=== PATIENT | female | born 1950 | race Hispanic/Latino ===

== ENCOUNTER 2022-11-03 14:11 | Emergency (ER) | payer MEDICARE, OTHER ==
--- OUTSIDE RECORDS SUMMARY | 2022-11-03 14:18 | XMS REPORT | Continuity of Care Document ---
:1950 Author Organization [facility] t Address [address] [facility] [address] [place] [address] Care Team Providers Name Role Phone VALERIE VANESSA Primary Care Physician Unavailable MAURICE NORWOOD Attending Clinician Unavailable JOANNE CARLSON Attending Clinician Unavailable Helga Huber MD Attending Clinician ALVARO CARLISLE Attending Clinician Unavailable Baltazar Neil MD Attending Clinician Alvaro Carlisle MD Attending Clinician Nurse, [facility] Attending Clinician Unavailable Unknown, Attending Attending Clinician Unavailable Austin Ramon Attending Clinician AUSTIN DUGAN Attending Clinician Unavailable JYOTHI KOWALSKI Attending Clinician Unavailable Radiology Attending Clinician Unavailable RADIOLOGY Attending Clinician Unavailable [place] POLYMER CHEMIST, Jyothi Attending Clinician Doctor Unassigned, Alsen Attending Clinician Unavailable Lab, Ang - Db Attending Clinician Unavailable , [facility] Lab Attending Clinician Unavailable JB GODFREY Attending Clinician Unavailable ROSIBEL STALLIGNS Attending Clinician Unavailable Rosibel Buchanan Attending Clinician ISAAC GUNTER Attending Clinician Unavailable Isaac Gunter MD Attending Clinician , [facility] Surg Spec Procedure Attending Clinician Unavailable EBBERNICE NESS Attending Clinician Unavailable Ebrahim POLYMER CHEMIST, Rania Attending Clinician Nikkie Muse MD Attending Clinician GRAMM LYNDSEY A Attending Clinician Unavailable Gramm POLYMER CHEMIST, Lyndsey A Attending Clinician IVANA SHAFFER Attending Clinician Unavailable Ivana Shaffer PA-C Attending Clinician SPENCER GROVES Attending Clinician Unavailable Spencer Groves MD Attending Clinician HELGA HUBER Attending Clinician Unavailable Leroy Ho Attending Clinician LEROY BOYD Attending Clinician Unavailable JEFF CHILD Attending Clinician Unavailable Jeff Child DO Attending Clinician Ha STERLING, Santhosh Attending Clinician SANTHOSH BROOKS Attending Clinician Unavailable ANTHONY BARRIENTOS Attending Clinician Unavailable Vaccine, Ang Db Cbc Fam Attending Clinician Unavailable Anthony Barrientos MD Attending Clinician REBEL HARO Attending Clinician Unavailable Chino Ortega MD Attending Clinician CHINO ORTEGA Attending Clinician Unavailable LAUREN LAWTON Attending Clinician Unavailable NIKO GUZMAN Attending Clinician Unavailable Rajnorma_Raf Attending Clinician Unavailable Joanne Carlson MD Attending Clinician [phone] Sabiha Duran MD Attending Clinician Maurice Norwood MD Attending Clinician Pob, Adc Lab Main Attending Clinician Unavailable CRUZITO COUGHLIN Attending Clinician Unavailable LILI BRAR JR Attending Clinician Unavailable TRICIA MARSHALL Attending Clinician Unavailable JUNG MILTON Attending Clinician Unavailable MAURICE NORWOOD Admitting Clinician Unavailable JOANNE CARLSON Admitting Clinician Unavailable MARINA HERRMANN Admitting Clinician Unavailable IBAN MCNEAL Admitting Clinician Unavailable LYNDSEY ROLLINS Admitting Clinician Unavailable JEFF CHILD Admitting Clinician Unavailable LAUREN LAWTON Admitting Clinician Unavailable Patricia Admitting Clinician Unavailable Payers Payer Name Policy Type Policy Number Effective Date Expiration Date Cristal burks MARIA ISABEL/[facility] [id number] 2019 MEDICARE ADVANTAGE 00:00:00 [facility]/[place] [id number] [facility] [id number] 2019 00:00:00 Problems Condition Condition Condition Status Onset Resolution Last Treating Co mments Source Name Details Category Date Date Treatment Clinician Date Neuropathy Neuropathy Disease Active U nivers 4-12 ity of 00:00: [place] [facility] Pruritus Pruritus Disease Active 2020-07 Unive rs 0-10 ity of 00:00: [facility] Vitamin D Vitamin D Disease Active 2020-07 Uni vers deficiency deficiency 0-10 it y of 00:00: [place] [facility] Statin Statin Disease Active Univers intoleranc intoleranc 9-19 it y of e e 00:00: [place] [facility] Adverse Adverse Disease Active Univers effect of effect of 9- ity of fibric fibric 00:00: [place] acid and acid and 00 Medica l fibric fibric Branch acid acid derivative derivative Gastritis Gastritis Disease Active Uni vers 8-19 ity of 00:00: [place] [facility] Gastroesop Gastroesop Disease Active 2019-07 Last B aylor hageal hageal 0-05 [facility] reflux reflux 00:00: t & Plan: of disease disease 00 Patient Medicin without without appears e esophagiti esophagiti to have s s uncontrol led GERD with bloating, abdominal pain and diffculty breathing . Recommend ed she try pepcid twice a day. Also recommend ed she try probiotic s to help with bloating. She is scheduled to see GI next week. Plan for follow up in 3 mo with PFT - to rule out obstructi ve or restricti ve lung disease. Nontraumat Nontraumat Disease Active Overview : Univers ic ic 8-04 Formattin ity of incomplete incomplete 00:00: g of this [place] tear of tear of 00 note Medical left left might be Branch rotator rotator different cuff cuff from the original. 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 0-30 it y of steremia steremia 00:00: Medical Branch Chronic Chronic Disease Active Univers diastolic diastolic 8-19 ity of heart heart 00:00: [place] failure failure 00 Medical Branch Primary Primary Disease Active Univers hypothyroi hypothyroi 2-18 it y of dism dism 00:00: Medical Branch HLD HLD Disease Active Univers (hyperlipi (hyperlipi 2-18 it y of demia) demia) 00:00: Medical Branch Type 2 Type 2 Disease Active Univers diabetes diabetes 2-15 ity of mellitus mellitus 00:00: [place] without without 00 Medical complicati complicati Br anch on on Essential Essential Disease Active Uni vers hypertensi hypertensi 1-27 it y of on on 00:00: Medical Branch Dyslipidem Dyslipidem Disease Active U nivers ia ia 1- ity of 00:00: 00 Medical Branch Allergies, Adverse Reactions, Alerts Allergy Allergy Status Severity Reaction(s) Onset Inactive Treating Comm ents Source Name Type Date Date Clinician CETIRIZI DRUG Active Swelling 2020-07 Univer s NE INGREDI 1-08 ity of 00:00: 00 Medical Branch TRIAMCIN DRUG Active Other-Cmnt 2020-07 Univ ers OLONE INGREDI 1-08 ity of ACETONID 00:00: [place] E 00 Medical Branch Cetirizi Propensi Active Swelling 2020-07 Swelling Un marianne ne ty to 1-08 of lips ity of adverse 00:00: and hands [place] reaction 00 and Medical s blisters Branch in mouth Triamcin Propensi Active Other - See 2020-07 "Burning Univers olone ty to comments 1-08 of skin" ity of Acetonid adverse 00:00: [place] e reaction 00 Medical s Branch Fenofibr Propensi Active Other - See "I feel Univers ate ty to comments 9-17 really ity of adverse 00:00: bad" [place] reaction 00 Medical s Branch FENOFIBR DRUG Active Other-Cmnt Univ ers ATE INGREDI 9-17 ity of 00:00: [place] 00 Medical Branch Diclofen Propensi Active Swelling 2020-0 Univ ers ac ty to 8-19 ity of adverse 00:00: [place] reaction 00 Medical s Branch Gabapent Propensi Active Swelling 2020-0 Univ ers in ty to 8-19 ity of adverse 00:00: [place] reaction 00 Medical s Branch Metronid Propensi Active Swelling 2020-0 Univ ers azole ty to 8-19 ity of adverse 00:00: [place] reaction 00 Medical s Branch DICLOFEN DRUG Active ITCHING 2020-0 Univers AC INGREDI 8-19 ity of 00:00: [place] 00 Medical Branch GABAPENT DRUG Active ITCHING 2020-0 Univers IN INGREDI 8-19 ity of 00:00: [place] 00 Medical Branch METRONID DRUG Active ITCHING 2020-0 Univers AZOLE INGREDI 8-19 ity of 00:00: [place] 00 Medical Branch CODEINE Allergy Active Med Itching 2019-[address] [facility] PENICILL Allergy Active Med Itching 2019- [facility] Codeine Drug Active Itching, 2019-[address] [facility] Penicill Drug Active Itching, 2019-[address] [facility] [facility] Rash [facility] Penicill Drug Active Itching, 2019-[address] [facility]ergy Rash [facility] Hydrocod Propensi Active Itching 2019-07 [facility] to 0-12 [facility] adverse 00:00: of reaction 00 Medicin s to e drug Meloxica Propensi Active Itching 2019-07 Causes [facility] ty to 0-12 headache College adverse 00:00: and of reaction 00 itchiness Medic in s to e drug Naproxen Propensi Active Other (See 2019-07 Causes [facility] ty to Comments) 0-12 severe College adverse 00:00: headache of reaction 00 and Medicin s to itchiness e drug Hydrocod Propensi Active Swelling 2019-07 Univ ers one ty to 0-12 ity of adverse 00:00: [place] reaction 00 Medical s Branch Meloxica Propensi Active Swelling 2019-07 Causes Univ ers m ty to 0-12 headache ity of adverse 00:00: and [place] reaction 00 itchiness Medic al s Branch Naproxen Propensi Active Other - See 2019-07 Causes U nivers ty to comments 0-12 severe ity of adverse 00:00: headache [place] reaction 00 and Medical s itchiness Branch HYDROCOD DRUG Active ITCHING 2019-07 Univers ONE INGREDI 0-12 ity of 00:00: [place] 00 Medical Branch MELOXICA DRUG Active ITCHING 2019-07 Univers M INGREDI 0-12 ity of 00:00: [place] 00 Medical Branch NAPROXEN DRUG Active ITCHING 2019-07 Univers INGREDI 0-12 ity of 00:00: [place] 00 Medical Branch Sulfamet Propensi Active Swelling 2019-0 Blisters Un marianne hoxazole ty to 8-15 in the ity of adverse 00:00: mouth and [place] reaction 00 lip Medical s swelling Branch SULFAMET DRUG Active Swelling 2019-0 Univer s HOXAZOLE INGREDI 8-15 ity of 00:00: [place] 00 Medical Branch Pravasta Propensi Active Other - See 2018- Severe U nivers tin ty to comments 0-17 muscle ity of adverse 00:00: cramping [place] reaction 00 Medical s Branch PRAVASTA DRUG Active Other-Cmnt 2017-07 Univ ers TIN INGREDI 0-17 ity of 00:00: [place] 00 Medical Branch Lisinopr Propensi Active Cough 2018-0 Univer s il ty to 5-03 ity of adverse 00:00: [place] reaction 00 Medical s Branch LISINOPR DRUG Active COUGH 2018-0 Univers IL INGREDI 5-03 ity of 00:00: [place] 00 Medical Branch Codeine Propensi Active 2016-07 [facility] ty to 0-03 [place] adverse 00:00: of reaction 00 Medicin s to e drug Penicill Propensi Active 2016-07 [facility] ins ty to 0-03 [place] adverse 00:00: of reaction 00 Medicin s to e drug Tramadol Propensi Active Shortness of 2017 Univers ty to Breath 6-23 ity of adverse 00:00: [place] reaction 00 Medical s Branch TRAMADOL DRUG Active Hives 2017- Univers INGREDI 6-23 ity of 00:00: [place] 00 Medical Branch Atorvast Propensi Active Other - See 2017- Swelling Univers atin ty to comments 2-13 ity of Calcium adverse 00:00: [place] reaction 00 Medical s Branch ATORVAST DRUG Active Other-Cmnt 2017- Univ ers ATIN INGREDI 2-13 ity of CALCIUM 00:00: [place] 00 Medical Branch Codeine Drug Active Rash 2016-0 Univers Allergy 1-26 ity of 00:00: [place] 00 Medical Branch Penicill Drug Active Rash 2016-0 Univers ins Allergy 1-26 ity of 00:00: [place] 00 Medical Branch CODEINE DRUG Active Med ITCHING 2016-0 Univers INGREDI 1-26 ity of 00:00: [place] 00 Medical Branch PENICILL Drug Active Med ITCHING 2016-0 Univers INS Class 1-26 ity of 00:00: [place] 00 Medical Branch NO KNOWN Allergy Active [facility] ALLERGIE S Social History Social Habit Start Date Stop Date Quantity Comments Source Exposure to 2022-05-18 2022-05-28 Not sure [facility] SARS-CoV-2 00:00:00 12:45:00 [facility] (event) [place] Tobacco use and 2022-05-07 2022-05-07 Smokeless tobacco Un iversity of exposure 00:00:00 00:00:00 non-user [facility] Alcohol intake 2020-05-08 2020-05-08 Current drinker CLAY Castro 00:00:00 00:00:00 of alcohol [facility] (finding) Sex [birth year] CLAY Pineda kes 00:00:00 00:00:00 Medical [place] Smoking Status Start Date Stop Date Source Never smoked tobacco [facility] Medications Ordered Filled Start Stop Current Ordering Indication Dosage Frequency Signature Comments Components Source Medication Medication Date Date Medication? Clinician (SIG) Name Name alice 2021-07 Yes [id number] 20mg Take 1 Univers n 20 mg 2-08 tablet by ity of tablet 00:00: mouth at [place] [address] bedtime. [facility] 2021-07 Yes [id number] 20mg Take 1 Univers n 20 mg 2-08 tablet by ity of tablet 00:00: mouth at [place] [address] bedtime. [facility]07 Yes [id number] 20mg Take 1 Univers n 20 mg 2-08 tablet by ity of tablet 00:00: mouth at [place] [address] bedtime. [facility] 2021-07 Yes [id number] 1{capsu Take 1 U nivers Blue-Sod 1-18 le} capsule by ity o f Phos-PhSal- 00:00: mouth 2 Ge as [place] 00 (two) Medical (URIBEL) times Branch 118-10-40.8 daily as -36 mg needed for capsule Other (bladder spasms). [facility] 2021-07 Yes [id number] 1{capsu Take 1 U nivers Blue-Sod 1-18 le} capsule by ity o f Phos-PhSal- 00:00: mouth 2 [place] as [place] 00 (two) Medical (URIBEL) times Branch 118-10-40.8 daily as -36 mg needed for capsule Other (bladder spasms). [facility] 2021-07 Yes [id number] 1{capsu Take 1 U nivers Blue-Sod 1-18 le} capsule by ity o f Phos-PhSal- 00:00: mouth 2 [place] as [place] 00 (two) Medical (URIBEL) times Branch 118-10-40.8 daily as -36 mg needed for capsule Other (bladder spasms). [facility] 2021-07 Yes [id number] 1{capsu Take 1 U nivers Blue-Sod 1-18 le} capsule by ity o f Phos-PhSal- 00:00: mouth 2 [place] 00 (two) Medical (URIBEL) times Branch 118-10-40.8 daily as -36 mg needed for capsule Other (bladder spasms). [facility] 2021-07 Yes [id number] 1{capsu Take 1 U nivers Blue-Sod 1-18 le} capsule by ity o f Phos-PhSal- 00:00: mouth 2 [place] 00 (two) Medical (URIBEL) times Branch 118-10-40.8 daily as -36 mg needed for capsule Other (bladder spasms). pregabalin 2021-0 Yes [id number] 25mg Take 1 Univers 25 mg 9-14 capsule by ity of capsule 00:00: mouth 2 [place] (two) Medical times Branch daily. pregabalin 2021-0 Yes [id number] 25mg Take 1 Univers 25 mg 9-14 capsule by ity of capsule 00:00: mouth 2 [place] (two) Medical times Branch daily. pregabalin 2021-0 Yes [id number] 25mg Take 1 Univers 25 mg 9-14 capsule by ity of capsule 00:00: mouth 2 [place] (two) Medical times Branch daily. pregabalin 2021-0 Yes [id number] 25mg Take 1 Univers 25 mg 9-14 capsule by ity of capsule 00:00: mouth 2 [place] (two) Medical times Branch daily. pregabalin 2021-0 Yes [id number] 25mg Take 1 Univers 25 mg 9-14 capsule by ity of capsule 00:00: mouth 2 [place] (two) Medical times Branch daily. pregabalin 2021-0 Yes [id number] 25mg Take 1 Univers 25 mg 9-14 capsule by ity of capsule 00:00: mouth 2 [place] (two) Medical times Branch daily. pregabalin 2021-0 Yes [id number] 25mg Take 1 Univers 25 mg 9-14 capsule by ity of capsule 00:00: mouth 2 [place] (two) Medical times Branch daily. SYNTHROID 2021-0 Yes [id number] 25ug Take 1 Un marianne 25 mcg 7-25 tablet by ity of tablet 00:00: mouth [place] 00 every Medical morning. Branch Brand name only SYNTHROID 2021-0 Yes [id number] 25ug Take 1 Un marianne 25 mcg 7-25 tablet by ity of tablet 00:00: mouth [place] 00 every Medical morning. Branch Brand name only SYNTHROID 2021-0 Yes [id number] 25ug Take 1 Un marianne 25 mcg 7-25 tablet by ity of tablet 00:00: mouth [place] 00 every Medical morning. Branch Brand name only SYNTHROID 0 Yes [id number] 25ug Take 1 Un marianne 25 mcg 7-25 tablet by ity of tablet 00:00: mouth [place] 00 every Medical morning. Branch Brand name only SYNTHROID 2021-0 Yes [id number] 25ug Take 1 Un marianne 25 mcg 7-25 tablet by ity of tablet 00:00: mouth [place] 00 every Medical morning. Branch Brand name only SYNTHROID 0 Yes [id number] 25ug Take 1 Un marianne 25 mcg 7-25 tablet by ity of tablet 00:00: mouth [place] 00 every Medical morning. Branch Brand name only SYNTHROID 0 Yes [id number] 25ug Take 1 Un marianne 25 mcg 7-25 tablet by ity of tablet 00:00: mouth [place] 00 every Medical morning. Branch Brand name only ezetimibe 0 Yes [id number] 10mg Take 1 Un marianne 10 mg 7-23 tablet by ity of tablet 00:00: mouth [place] 00 daily. Medical Branch ezetimibe 0 Yes [id number] 10mg Take 1 Un marianne 10 mg 7-23 tablet by ity of tablet 00:00: mouth [place] 00 daily. Medical Branch ezetimibe 0 Yes [id number] 10mg Take 1 Un marianne 10 mg 7-23 tablet by ity of tablet 00:00: mouth [place] 00 daily. Medical Branch ezetimibe 0 Yes [id number] 10mg Take 1 Un marianne 10 mg 7-23 tablet by ity of tablet 00:00: mouth [place] 00 daily. Medical Branch ezetimibe 0 Yes [id number] 10mg Take 1 Un marianne 10 mg 7-23 tablet by ity of tablet 00:00: mouth [place] 00 daily. Medical Branch ezetimibe 0 2021- No [id number] 10mg Take 1 U nivers 10 mg 7-23 12-08 tablet by ity of tablet 00:00: 00:00 mouth [place] 00 :00 daily. Medical Branch Mth-Me 0 Yes [id number] 1{capsu Take 1 U nivers Blue-Sod 7-15 le} capsule by ity o f Phos-PhSal- 00:00: mouth 2 [place] 00 (two) Medical (URIBEL) times Branch 118-10-40.8 daily as -36 mg needed for capsule Other (bladder spasms). [facility] Yes [id number] 1{capsu Take 1 U nivers Blue-Sod 7-15 le} capsule by ity o f Phos-PhSal- 00:00: mouth 2 [place] 00 (two) Medical (URIBEL) times Branch 118-10-40.8 daily as -36 mg needed for capsule Other (bladder spasms). [facility] Yes [id number] 1{capsu Take 1 U nivers Blue-Sod 7-15 le} capsule by ity o f Phos-PhSal- 00:00: mouth 2 [place] 00 (two) Medical (URIBEL) times Branch 118-10-40.8 daily as -36 mg needed for capsule Other (bladder spasms). [facility] Yes [id number] 1{capsu Take 1 U nivers Blue-Sod 7-15 le} capsule by ity o f Phos-PhSal- 00:00: mouth 2 [place] 00 (two) Medical (URIBEL) times Branch 118-10-40.8 daily as -36 mg needed for capsule Other (bladder spasms). [facility] Yes [id number] 1{capsu Take 1 U nivers Blue-Sod 7-15 le} capsule by ity o f Phos-PhSal- 00:00: mouth 2 [place] 00 (two) Medical (URIBEL) times Branch 118-10-40.8 daily as -36 mg needed for capsule Other (bladder spasms). [facility] Yes [id number] 1{capsu Take 1 U nivers Blue-Sod 7-15 le} capsule by ity o f Phos-PhSal- 00:00: mouth 2 [place] 00 (two) Medical (URIBEL) times Branch 118-10-40.8 daily as -36 mg needed for capsule Other (bladder spasms). [facility] Yes [id number] 1{capsu Take 1 U nivers Blue-Sod 7-15 le} capsule by ity o f Phos-PhSal- 00:00: mouth 2 [place] 00 (two) Medical (URIBEL) times Branch 118-10-40.8 daily as -36 mg needed for capsule Other (bladder spasms). [facility] 2021-0 Yes [id number] 1{capsu Take 1 U nivers Blue-Sod 7-15 le} capsule by ity o f Phos-PhSal- 00:00: mouth 2 [place] 00 (two) Medical (URIBEL) times Branch 118-10-40.8 daily as -36 mg needed for capsule Other (bladder spasms). albuterol 2021-0 Yes [id number] 2.5mg Inhale 3 Univers 2.5 mg /3 2-14 mL every 4 ity of mL (0.083 00:00: (four) [place] %) 00 hours as Medical nebulizer needed for Bran ch solution Wheezing. famotidine 2021-0 Yes [id number] 40mg Take 1 U nivers 40 mg 2-14 tablet by ity of tablet 00:00: mouth 2 (two) Medical times Branch daily. albuterol 2021-0 Yes [id number] 2.5mg Inhale 3 Univers 2.5 mg /3 2-14 mL every 4 ity of mL (0.083 00:00: (four) [place] %) 00 hours as Medical nebulizer needed for Bran ch solution Wheezing. famotidine 2021-0 Yes [id number] 40mg Take 1 U nivers 40 mg 2-14 tablet by ity of tablet 00:00: mouth 2 (two) Medical times Branch daily. albuterol 2021-0 Yes [id number] 2.5mg Inhale 3 Univers 2.5 mg /3 2-14 mL every 4 ity of mL (0.083 00:00: (four) [place] %) 00 hours as Medical nebulizer needed for Bran ch solution Wheezing. famotidine 2021-0 Yes [id number] 40mg Take 1 U nivers 40 mg 2-14 tablet by ity of tablet 00:00: mouth 2 (two) Medical times Branch daily. albuterol 2021-0 Yes [id number] 2.5mg Inhale 3 Univers 2.5 mg /3 2-14 mL every 4 ity of mL (0.083 00:00: (four) [place] %) 00 hours as Medical nebulizer needed for Bran ch solution Wheezing. famotidine 2022-0 Yes [id number] 40mg Take 1 U nivers 40 mg 2-14 tablet by ity of tablet 00:00: mouth 2 (two) Medical times Branch daily. albuterol 2022-0 Yes [id number] 2.5mg Inhale 3 Univers 2.5 mg /3 2-14 mL every 4 ity of mL (0.083 00:00: ([facility]) [place] %) 00 hours as Medical nebulizer needed for Bran ch solution Wheezing. famotidine 2022-0 Yes [id number] 40mg Take 1 U nivers 40 mg 2-14 tablet by ity of tablet 00:00: mouth (two) Medical times Branch daily. albuterol 2022-0 Yes [id number] 2.5mg Inhale 3 Univers 2.5 mg /3 2-14 mL every 4 ity of mL (0.083 00:00: () [place] %) 00 hours as Medical nebulizer needed for Bran ch solution Wheezing. famotidine 2022-0 Yes [id number] 40mg Take 1 U nivers 40 mg 2-14 tablet by ity of tablet 00:00: mouth (two) Medical times Branch daily. albuterol 2022-0 Yes [id number] 2.5mg Inhale 3 Univers 2.5 mg /3 2-14 mL every 4 ity of mL (0.083 00:00: () [place] %) 00 hours as Medical nebulizer needed for Bran ch solution Wheezing. famotidine 2022-0 Yes [id number] 40mg Take 1 U nivers 40 mg 2-14 tablet by ity of tablet 00:00: mouth 2 (two) Medical times Branch daily. albuterol 2022-0 Yes [id number] 2.5mg Inhale 3 Univers 2.5 mg /3 2-14 mL every 4 ity of mL (0.083 00:00: () [place] %) 00 hours as Medical nebulizer needed for Bran ch solution Wheezing. famotidine 2022-0 Yes [id number] 40mg Take 1 U nivers 40 mg 2-14 tablet by ity of tablet 00:00: mouth 2 (two) Medical times Branch daily. candesartan 2022-0 Yes 32mg Take 32 mg Univers 32 mg 1-28 by mouth ity of tablet 14:56: daily. [address] candesartan 2021-0 Yes 32mg Take 32 mg Univers 32 mg 1-28 by mouth ity of tablet 14:56: daily. [address] Branch candesartan 2021-0 Yes 32mg Take 32 mg Univers 32 mg 1-28 by mouth ity of tablet 14:56: daily. [address] candesartan 2021-0 Yes 32mg Take 32 mg Univers 32 mg 1-28 by mouth ity of tablet 14:56: daily. [address] candesartan 2021-0 Yes 32mg Take 32 mg Univers 32 mg 1-28 by mouth ity of tablet 14:56: daily. [address] candesartan 2021-0 Yes 32mg Take 32 mg Univers 32 mg 1-28 by mouth ity of tablet 14:56: daily. [address] candesartan 2021-0 Yes 32mg Take 32 mg Univers 32 mg 1-28 by mouth ity of tablet 14:56: daily. [address] candesartan 0 Yes 32mg Take 32 mg Univers 32 mg 1-28 by mouth ity of tablet 14:56: daily. [address] cloNIDine 2021-0 Yes .1mg Take 0.1 Univ ers 0.1 mg 1-28 mg by ity of tablet 14:48: mouth at [place] [address] bedtime. Medical Branch cloNIDine 2021-0 Yes .1mg Take 0.1 Univ ers 0.1 mg 1-28 mg by ity of tablet 14:48: mouth at [place] [address] bedtime. Medical Branch cloNIDine 2021-0 Yes .1mg Take 0.1 Univ ers 0.1 mg 1-28 mg by ity of tablet 14:48: mouth at [place] [address] bedtime. Medical Branch cloNIDine 2021-0 Yes .1mg Take 0.1 Univ ers 0.1 mg 1-28 mg by ity of tablet 14:48: mouth at [place] [address] bedtime. [facility] Branch cloNIDine 2021-0 Yes .1mg Take 0.1 Univ ers 0.1 mg 1-28 mg by ity of tablet 14:48: mouth at [place] [address] bedtime. [facility] Branch cloNIDine 2021-0 Yes .1mg Take 0.1 Univ ers 0.1 mg 1-28 mg by ity of tablet 14:48: mouth at [place] 53 bedtime. Medical Branch cloNIDine 2021-0 Yes .1mg Take 0.1 Univ ers 0.1 mg 1-28 mg by ity of tablet 14:48: mouth at [place] 53 bedtime. Medical Branch cloNIDine 2021-0 Yes .1mg Take 0.1 Univ ers 0.1 mg 1-28 mg by ity of tablet 14:48: mouth at [place] 53 bedtime. Medical Branch Cholecalcif 2020-07 Yes [id number] 24507T Take 1 Univers kavon, 2-10 capsule by ity of Vitamin D3, 00:00: mouth [place] 1,250 mcg 00 every 14 Medica l (50,000 (fourteen) Branch unit) days. capsule Cholecalcif 2020-07 Yes [id number] Take 1 [facility] kavon, 2-10 capsule by ity of Vitamin D3, 00:00: mouth [place] 1,250 mcg 00 every 14 Medica l (50,000 (fourteen) Branch unit) days. capsule Cholecalcif 2020-07 Yes [id number] Take 1 [facility] kavon, 2-10 capsule by ity of Vitamin D3, 00:00: mouth [place] 1,250 mcg 00 every 14 Medica l (50,000 (fourteen) Branch unit) days. capsule Cholecalcif 2020-07 Yes [id number] Take 1 [facility] kavon, 2-10 capsule by ity of Vitamin D3, 00:00: mouth [place] 1,250 mcg 00 every 14 Medica l (50,000 (fourteen) Branch unit) days. capsule Cholecalcif 2020-07 Yes [id number] Take 1 [facility] kavon, 2-10 capsule by ity of Vitamin D3, 00:00: mouth [place] 1,250 mcg 00 every 14 Medica l (50,000 (fourteen) Branch unit) days. capsule Cholecalcif 2020-07 Yes [id number] Take 1 [facility] kavon, 2-10 capsule by ity of Vitamin D3, 00:00: mouth [place] 1,250 mcg 00 every 14 Medica l (50,000 (fourteen) Branch unit) days. capsule Cholecalcif 2020-07 Yes [id number] Take 1 [facility] kavon, 2-10 capsule by ity of Vitamin D3, 00:00: mouth [place] 1,250 mcg 00 every 14 Medica l (50,000 (fourteen) Branch unit) days. capsule Cholecalcif 2020-07 Yes [id number] Take 1 [facility] kavon, 2-10 capsule by ity of Vitamin D3, 00:00: mouth [place] 1,250 mcg 00 every 14 Medica l (50,000 (fourteen) Branch unit) days. capsule Lancets 2020-07 Yes [id number] Check Univ ers Misc 0-11 sugars 3 ity of 00:00: times a [place] 00 day. Dx Medical Code Branch E11.9. Brand per insurance. Lancets 2020-07 Yes [id number] Check Univ ers Misc 0-11 sugars 3 ity of 00:00: times a [place] 00 day. Dx Medical Code Branch E11.9. Brand per insurance. Lancets 2020-07 Yes [id number] Check Univ ers Misc 0-11 sugars 3 ity of 00:00: times a [place] 00 day. Dx Medical Code Branch E11.9. Brand per insurance. Lancets 2020-07 Yes [id number] Check Univ ers Misc 0-11 sugars 3 ity of 00:00: times a [place] 00 day. Dx Medical Code Branch E11.9. Brand per insurance. Lancets 2020-07 Yes [id number] Check Univ ers Misc 0-11 sugars 3 ity of 00:00: times a [place] 00 day. Dx Medical Code Branch E11.9. Brand per insurance. Lancets 2020-07 Yes [id number] Check Univ ers Misc 0-11 sugars 3 ity of 00:00: times a [place] 00 day. Dx Medical Code Branch E11.9. Brand per insurance. Lancets 2020-07 Yes [id number] Check Univ ers Misc 0-11 sugars 3 ity of 00:00: times a [place] 00 day. Dx Medical Code Branch E11.9. Brand per insurance. Lancets 2020-07 Yes [id number] Check Univ ers Misc 0-11 sugars 3 ity of 00:00: times a [place] 00 day. Dx Medical Code Branch E11.9. Brand per insurance. zolpidem 5 Yes 5mg Take 5 mg Un [facility] mg tablet 8-19 by mouth. ity o f 10:44: [place] 46 Medical Branch zolpidem 5 2021-0 Yes 5mg Take 5 mg [facility] mg tablet 8-19 by mouth. ity o f 10:44: [address] zolpidem 5 0 Yes 5mg Take 5 mg [facility] mg tablet 8-19 by mouth. ity o f 10:44: [address] zolpidem 5 2020-0 Yes 5mg Take 5 mg [facility] mg tablet 8-19 by mouth. ity o f 10:44: [address] zolpidem 5 2020-0 Yes 5mg Take 5 mg [facility] mg tablet 8-19 by mouth. ity o f 10:44: [address] zolpidem 5 2020-0 Yes 5mg Take 5 mg [facility] [place] mg tablet 8-19 by mouth. ity o f 10:44: [address] zolpidem 5 2020-0 Yes 5mg Take 5 mg [facility] mg tablet 8-19 by mouth. ity o f 10:44: [address] zolpidem 5 Yes 5mg Take 5 mg [facility] mg tablet 8-19 by mouth. ity o f 10:44: [address] levothyroxi 2019-07 Yes 50ug Take [address] [facility] ne 0-29 mcg by [facility] (SYNTHROID, 14:02: mouth Medic al LEVOTHROID) 03 Every Center 50 MCG morning on tablet an empty stomach. glipiZIDE 2019-07 Yes 5mg QD Take [address] [facility] (GLUCOTROL) 0-29 by mouth [facility] 5 MG tablet 14:02: daily. Medi lakshmi 03 [place] candesartan 2019-07 Yes 32mg QD Take [address] [facility] (ATACAND) 0-29 by [facility] 32 MG 14:02: daily. Medical tablet 03 [place] multivitami 2019-07 Yes 1{tbl} QD Take [address] [facility] per 0-29 tablet by [facility] tablet 14:02: mouth Medical 03 daily. [place] cyanocobala 2019-07 Yes 1000ug Inject [facility] min 0-29 1,000 [facility]cg [facility] (VITAMIN 14:02: intramuscu Med ical B-12) 1,000 03 larly Center mcg/mL once. injection esomeprazol 2019-07 Yes 40mg QD Take [address] [facility] (NexIUM) 0-29 by mouth [facility] 20 MG 14:02: daily. Medical capsule 03 [place] ALPRAZolam 2019-07 Yes .5mg Take 0.[address] [facility] (XANAX) 0.5 0-29 mg by [facility] MG tablet 14:02: mouth Medical 03 every Center night as needed for Anxiety. fluticasone 2019-07 Yes 1{puff} QD Inhale [address] [facility] furoate-joceline 0-29 puff by [facility] anteroL 14:02: mouth via Medic al (Breo 03 inhaler [place] Ellipta) daily. 100-25 mcg/dose DsDv ezetimibe 2019-07 Yes 10mg QD Take [address] (ZETIA) 10 0-29 by [facility] mg tablet 14:02: daily. Medica l 03 [place] zolpidem 2019-07 Yes 5mg Take [address] [facility] (AMBIEN) 5 0-29 by mouth [facility] MG tablet 14:02: every Medical 03 night as Center needed for Insomnia. levothyroxi 2019-07 Yes 50ug Take [address] [facility] ne 0-29 mcg by [facility] (SYNTHROID, 14:02: mouth Medic al LEVOTHROID) 03 Every Center 50 MCG morning on tablet an empty stomach. glipiZIDE 2019-07 Yes 5mg QD Take [address] [facility] (GLUCOTROL) 0-29 by mouth [facility] 5 MG tablet 14:02: daily. Medi lakshmi 03 [place] candesartan 2019-07 Yes 32mg QD Take [address] [facility] (ATACAND) 0-29 by mouth [facility] 32 MG 14:02: daily. Medical tablet 03 [place] multivitami 2019-07 Yes 1{tbl} QD Take [address] [facility] per 0-29 tablet by [facility] tablet 14:02: mouth Medical 03 daily. [place] cyanocobala 2019-07 Yes 1000ug Inject [facility] min 0-29 1,000 mcg [facility] (VITAMIN 14:02: intramuscu Med ical B-12) 1,[address] [place] [address] mcg/mL once. injection esomeprazol 2019-07 Yes 40mg QD Take [address] [facility] (NexIUM) 0-29 by mouth [facility] 20 MG 14:02: daily. Medical capsule 03 [place] ALPRAZolam 2019-07 Yes .5mg Take 0.[address] [facility] (XANAX) 0.5 0-29 mg by [facility] MG tablet 14:02: mouth Medical 03 every Center night as needed for Anxiety. fluticasone 2019-07 Yes 1{puff} QD Inhale [address] [facility] furoate-joceline 0-29 puff by [facility] anteroL 14:02: mouth via Medic al (Breo 03 inhaler Center Ellipta) daily. 100-25 mcg/dose DsDv ezetimibe 2019-07 Yes 10mg QD Take [address] (ZETIA) 10 0-29 by mouth [facility] mg tablet 14:02: daily. Medica l 03 Center zolpidem 2019-07 Yes 5mg Take [address] [facility] (AMBIEN) 5 0-29 by mouth [facility] MG tablet 14:02: every Medical 03 night as Center needed for Insomnia. montelukast 2019-07 Yes 5mg Take 5 mg [facility] (SINGULAIR) 0-12 by mouth Josefa ege 5 MG 16:08: every of chewable 36 evening. Medicin tablet e ezetimibe 2019-07 Yes 10mg Take 10 mg [facility] (ZETIA) 10 0-12 by mouth Colle ge MG tablet 16:03: daily. of 55 Medicin e Fluticasone 2019-07 Yes Inhale by [facility] Furoate-Joceline 0-12 nose. [facility] 16:03: of (BREO 55 Medicin ELLIPTA) e 100-25 MCG/INH AEPB sucralfate 2019- Yes [id number] 1g Take 10 mL [place] (CARAFATE) 0-12 by mouth Colle ge 1 GM/10ML 00:00: four times of suspension 00 daily. Medicin e Fluticasone 2019-07 Yes Inhale by [facility] Furoate-Joceline 0-01 nose. [facility] 17:56: of (BREO 15 Medicin ELLIPTA) e 100-25 MCG/INH AEPB ezetimibe 2019- Yes 10mg Take 10 mg [facility] (ZETIA) 10 0-01 by mouth Colle ge MG tablet 17:55: daily. of 33 Medicin e candesartan 2020-0 Yes 1{tbl} Take 1 Tab [facility] (ATACAND) 8-11 by mouth Colleg e 32 MG 00:00: daily. of tablet 00 Medicin e candesartan 2019-0 Yes 1{tbl} Take 1 Tab [facility] (ATACAND) 8-11 by mouth Colleg e 32 MG 00:00: daily. of tablet 00 Medicin e levothyroxi 2020- No 50ug Take 50 [facility] ne 3-24 10-01 mcg by [place] (SYNTHROID) 00:00: 00:00 mouth of 50 MCG 00 :00 daily. Medicin tablet e glipiZIDE 2018-07- No 5mg Take 5 mg [facility] (GLUCOTROL) 1-19 10- by mouth Col lege 5 MG tablet 00:00: 00:00 daily. of 00 :00 Medicin e omeprazole 2019-0 Yes daily. [facility] (PRILOSEC) 7-25 College 40 MG 00:00: of capsule 00 Medicin e omeprazole 2019-0 Yes daily. [facility] (PRILOSEC) 7-25 [place] 40 MG 00:00: of capsule 00 Medicin e fluticasone Yes [id number] 1{puff} Inhale 1 Univers -vilanterol 6-04 Puff 2 ity of (BREO 00:00: (two) [place] ELLIPTA) 00 times Medical 100-25 daily. Branch mcg/dose DsDv zolpidem Yes as needed. [facility] (AMBIEN) 5 6-04 College MG tablet 00:00: of 00 Medicin e fluticasone Yes [id number] 1{puff} Inhale 1 Univers -vilanterol 6-04 Puff 2 ity of (BREO 00:00: (two) [place] ELLIPTA) 00 times Medical 100-25 daily. Branch mcg/dose DsDv fluticasone Yes [id number] 1{puff} Inhale 1 Univers -vilanterol 6-04 Puff 2 ity of (BREO 00:00: (two) [place] ELLIPTA) 00 times Medical 100-25 daily. Branch mcg/dose DsDv fluticasone Yes [id number] 1{puff} Inhale 1 Univers -vilanterol 6-04 Puff 2 ity of (BREO 00:00: (two) [place] ELLIPTA) 00 times Medical 100-25 daily. Branch mcg/dose DsDv fluticasone Yes [id number] 1{puff} Inhale 1 Univers -vilanterol 6-04 Puff 2 ity of (BREO 00:00: (two) [place] ELLIPTA) 00 times Medical 100-25 daily. Branch mcg/dose DsDv fluticasone Yes [id number] 1{puff} Inhale 1 Univers -vilanterol 6-04 Puff 2 ity of (BREO 00:00: (two) [place] ELLIPTA) 00 times Medical 100-25 daily. Branch mcg/dose DsDv fluticasone Yes [id number] 1{puff} Inhale 1 Univers -vilanterol 6-04 Puff 2 ity of (BREO 00:00: (two) [place] ELLIPTA) 00 times Medical 100-25 daily. Branch mcg/dose DsDv fluticasone Yes [id number] 1{puff} Inhale 1 Univers -vilanterol 6-04 Puff 2 ity of (BREO 00:00: (two) [place] ELLIPTA) 00 times Medical 100-25 daily. Branch mcg/dose DsDv zolpidem Yes as needed. [facility] (AMBIEN) 5 6-04 College MG tablet 00:00: of 00 Medicin e blood sugar Yes [id number] Use BID, Univers diagnostic 4-30 DX E11.9 ity o f (ACCU-CHEK 00:00: (Brand [place] SMARTVIEW 00 upon Medical TEST STRIP) insurance [facility] strip approval) blood sugar Yes [id number] Use BID, Univers diagnostic 4-30 DX E11.9 ity o f (ACCU-CHEK 00:00: (Brand [place] SMARTVIEW 00 upon Medical TEST STRIP) insurance [facility] strip approval) blood sugar Yes [id number] Use BID, Univers diagnostic 4-30 DX E11.9 ity o f (ACCU-CHEK 00:00: (Brand [place] SMARTVIEW 00 upon Medical TEST STRIP) insurance [facility] strip approval) blood sugar Yes [id number] Use BID, Univers diagnostic 4-30 DX E11.9 ity o f (ACCU-CHEK 00:00: (Brand [place] SMARTVIEW 00 upon Medical TEST STRIP) insurance [facility] strip approval) blood sugar Yes [id number] Use BID, Univers diagnostic 4-30 DX E11.9 ity o f (ACCU-CHEK 00:00: (Brand [place] SMARTVIEW 00 upon Medical TEST STRIP) insurance [facility] strip approval) blood sugar Yes [id number] Use BID, Univers diagnostic 4-30 DX E11.9 ity o f (ACCU-CHEK 00:00: (Brand [place] SMARTVIEW 00 upon Medical TEST STRIP) insurance [facility] strip approval) blood sugar Yes [id number] Use BID, Univers diagnostic 4-30 DX E11.9 ity o f (ACCU-CHEK 00:00: (Brand [place] SMARTVIEW 00 upon Medical TEST STRIP) insurance [facility] strip approval) blood sugar Yes [id number] Use BID, Univers diagnostic 4-30 DX E11.9 ity o f (ACCU-CHEK 00:00: (Brand [place] SMARTVIEW 00 upon Medical TEST STRIP) insurance [facility] strip approval) SYNTHROID Yes TAKE 1 [place] 50 MCG 9-13 TABLET BY College tablet 00:00: MOUTH of 00 EVERY Medicin MORNING. e SYNTHROID Yes TAKE 1 [facility] 50 MCG 9-13 TABLET BY College tablet 00:00: MOUTH of 00 EVERY Medicin MORNING. e metoprolol 2019- No TAKE 1 [facility] (LOPRESSOR) 9-11 10- TABLET BY Co llege 50 MG 00:00: 00:00 MOUTH 2 of tablet 00 :00 (TWO) Medicin TIMES e DAILY. atorvastati Yes TAKE 1 [facility] (LIPITOR) 9-05 TABLET BY Col lege 40 MG 00:00: MOUTH AT of tablet 00 BEDTIME. Medicin e atorvastati Yes TAKE 1 [facility] (LIPITOR) 9-05 TABLET BY Col lege 40 MG 00:00: MOUTH AT of tablet 00 BEDTIME. Medicin e [place]-3-aci Yes TAKE 1 [facility] Ethyl 8-21 CAPSULE [facility] [place] 1 G 00:00: B6Y MOUTH of CAPS 00 TWICE A Medicin DAY e [place]-3-aci Yes TAKE 1 [facility] Ethyl 8-21 CAPSULE [facility] [place] 1 G 00:00: B6Y MOUTH of CAPS 00 TWICE A Medicin DAY e lisinopril 2019- No TAKE 1 [facility] (PRINIVIL, 8-21 10- TABLET BY Col lege ZESTRIL) 20 00:00: 00:00 MOUTH of MG tablet 00 :00 EVERY DAY Medic in e lisinopril 2020- No TAKE 1 [facility] (PRINIVIL, 02-28 TABLET BY Col lege ZESTRIL) 20 00:00: 00:00 MOUTH of MG tablet 00 :00 EVERY DAY Medic in e SYNTHROID 2020- No TAKE 1 [facility] 50 MCG 804-10 TABLET BY College tablet 00:00: 00:00 MOUTH of 00 :00 EVERY Medicin MORNING. e glipiZIDE Yes TAKE 1 [facility] (GLUCOTROL) 8-14 TABLET BY Col lege 5 MG tablet 00:00: MOUTH of 00 DAILY. Medicin e glipiZIDE Yes TAKE 1 [place] (GLUCOTROL) 8-14 TABLET BY Col lege 5 MG tablet 00:00: MOUTH of 00 DAILY. Medicin e glipiZIDE 2019- No TAKE 1 [facility] (GLUCOTROL) 8-14 04-10 TABLET BY Co llege 5 MG tablet 00:00: 00:00 MOUTH of 00 :00 DAILY. Medicin e estradiol 2019- No TOME KATHY [facility] (ESTRACE) 01-14 TABLETA AL Col lege 0.5 MG 00:00: 00:00 SARIKA of tablet 00 :00 Medicin e estradiol 2020- No TOME KATHY [facility] (ESTRACE) 01-14 TABLETA AL Col lege 0.5 MG 00:00: 00:00 SARIKA of tablet 00 :00 Medicin e ranitidine, Yes TOME KATHY [facility] ZANTAC, 150 7-05 TABLETA Colle ge MG tablet 00:00: POR VIA of 00 ORAL DOS Medicin VECES AL e SARIKA ranitidine, Yes TOME KATHY [facility] ZANTAC, 150 7-05 TABLETA Colle ge MG tablet 00:00: POR VIA of 00 ORAL DOS Medicin VECES AL e SARIKA sucralfate 2020- No TAKE 1 [facility] (CARAFATE) 604-10 TABLET BY Col lege 1 G tablet 00:00: 00:00 MOUTH of 00 :00 BEFORE Medicin MEALS AND e AT BEDTIME. Immunizations Ordered Filled Immunization Date Status Comments [facility] e Immunization Name Name SARS-COV-2 COVID-19 2021-06-22 Completed Unive rsity of MODERNA 0.25ML 00:00:00 [place] Medi lakshmi BOOSTER VACCINE Branch SARS-COV-2 COVID-19 2021-06-22 Completed Unive rsity of MODERNA 0.25ML 00:00:00 [place] Medi lakshmi BOOSTER VACCINE Branch SARS-COV-2 COVID-19 2021-06-22 Completed Unive rsity of MODERNA 0.25ML 00:00:00 [place] Medi lakshmi BOOSTER VACCINE Branch SARS-COV-2 COVID-19 2021-06-22 Completed Unive rsity of MODERNA 0.25ML 00:00:00 [place] Medi lakshmi BOOSTER VACCINE Branch SARS-COV-2 COVID-19 2021-06-22 Completed Unive rsity of MODERNA 0.25ML 00:00:00 [place] Medi lakshmi BOOSTER VACCINE Branch SARS-COV-2 COVID-19 2021-06-22 Completed Unive rsity of MODERNA 0.25ML 00:00:00 [place] Medi lakshmi BOOSTER VACCINE Branch SARS-COV-2 COVID-19 2021-06-22 Completed Unive rsity of MODERNA 0.25ML 00:00:00 [place] Medi lakshmi BOOSTER VACCINE Branch SARS-COV-2 COVID-19 2021-06-22 Completed Unive rsity of MODERNA 0.25ML 00:00:00 [place] Medi lakshmi BOOSTER VACCINE Branch Influenza High Dose 2021-03-30 Completed Unive rsity of 00:00:00 [place] [facility] Influenza High Dose 2021-03-30 Completed Unive rsity of 00:00:00 [place] [facility] Influenza High Dose 2021-03-30 Completed Unive rsity of 00:00:00 [place] [facility] Influenza High Dose 2021-03-30 Completed Unive rsity of 00:00:00 [place] [facility] Influenza High Dose 2021-03-30 Completed Unive rsity of 00:00:00 [place] [facility] Influenza High Dose 2021-03-30 Completed Unive rsity of 00:00:00 [place] [facility] Influenza High Dose 2021-03-30 Completed Unive rsity of 00:00:00 [place] [facility] Influenza High Dose 2021-03-30 Completed Unive rsity of 00:00:00 [facility] Zoster Vaccine 2021-03-06 Completed University of Recombinant 00:00:00 [facility] Zoster Vaccine 2021-03-06 Completed University of Recombinant 00:00:00 [facility] Zoster Vaccine 2021-03-06 Completed University of Recombinant 00:00:00 [facility] Zoster Vaccine 2021-03-06 Completed University of Recombinant 00:00:00 [facility] Zoster Vaccine 2021-03-06 Completed University of Recombinant 00:00:00 [facility] Zoster Vaccine 2021-03-06 Completed University of Recombinant 00:00:00 [facility] Zoster Vaccine 2021-03-06 Completed University of Recombinant 00:00:00 [facility] Zoster Vaccine 2021-03-06 Completed University of Recombinant 00:00:00 [facility] SARS-COV-2 COVID-19 2020-09-13 Completed Unive rsity of MODERNA 12+ YRS 00:00:00 [facility] ical VACCINE Branch SARS-COV-2 COVID-19 2020-09-13 Completed Unive rsity of MODERNA 12+ YRS 00:00:00 [facility] ical VACCINE Branch SARS-COV-2 COVID-19 2020-09-13 Completed Unive rsity of MODERNA 12+ YRS 00:00:00 [facility] ical VACCINE Branch SARS-COV-2 COVID-19 2020-09-13 Completed Unive rsity of MODERNA 12+ YRS 00:00:00 [facility] ical VACCINE Branch SARS-COV-2 COVID-19 2020-09-13 Completed Unive rsity of MODERNA 12+ YRS 00:00:00 [facility] ical VACCINE Branch SARS-COV-2 COVID-19 2020-09-13 Completed Unive rsity of MODERNA 12+ YRS 00:00:00 [facility] ical VACCINE Branch SARS-COV-2 COVID-19 2020-09-13 Completed Unive rsity of MODERNA 12+ YRS 00:00:00 [facility] ical VACCINE Branch SARS-COV-2 COVID-19 2020-09-13 Completed Unive rsity of MODERNA 12+ YRS 00:00:00 [facility] ical VACCINE Branch SARS-COV-2 COVID-19 2020-08-16 Completed Unive rsity of MODERNA 12+ YRS 00:00:00 [facility] ical VACCINE Branch SARS-COV-2 COVID-19 2020-08-16 Completed Unive rsity of MODERNA 12+ YRS 00:00:00 [facility] ical VACCINE Branch SARS-COV-2 COVID-19 2020-08-16 Completed Unive rsity of MODERNA 12+ YRS 00:00:00 [place] [facility] ical VACCINE Branch SARS-COV-2 COVID-19 2020-08-16 Completed Unive rsity of MODERNA 12+ YRS 00:00:00 [facility] ical VACCINE Branch SARS-COV-2 COVID-19 2020-08-16 Completed Unive rsity of MODERNA 12+ YRS 00:00:00 [place] [facility] ical VACCINE Branch SARS-COV-2 COVID-19 2020-08-16 Completed Unive rsity of MODERNA 12+ YRS 00:00:00 [facility] ical VACCINE Branch SARS-COV-2 COVID-19 2020-08-16 Completed Unive rsity of MODERNA 12+ YRS 00:00:00 [facility] ical VACCINE Branch SARS-COV-2 COVID-19 2020-08-16 Completed Unive rsity of MODERNA 12+ YRS 00:00:00 [facility] VACCINE Branch Influenza Hd 2020-03-26 Completed [facility] Colle ge of 00:00:00 Medicine Influenza Hd 2020-03-26 Completed [facility] Colle ge of 00:00:00 Medicine Influenza Virus 2020-03-26 Completed Universit y of Vaccine (3+ yrs) 00:00:00 [facility] Influenza Virus 2020-03-26 Completed Universit y of Vaccine (3+ yrs) 00:00:00 [facility] Influenza Virus 2020-03-26 Completed Universit y of Vaccine (3+ yrs) 00:00:00 [facility] Influenza Virus 2020-03-26 Completed Universit y of Vaccine (3+ yrs) 00:00:00 [facility] Influenza Virus 2020-03-26 Completed Universit y of Vaccine (3+ yrs) 00:00:00 [facility] Influenza Virus 2020-03-26 Completed Universit y of Vaccine (3+ yrs) 00:00:00 [facility] Influenza Virus 2020-03-26 Completed Universit y of Vaccine (3+ yrs) 00:00:00 [facility] Influenza Virus 2020-03-26 Completed Universit y of Vaccine (3+ yrs) 00:00:00 [place] [facility] Pneumococcal 2019-05-16 Completed University o f Polysaccharide, 00:00:00 [place] Med ical PPSV23 (PNEUMOVAX) Branch Pneumococcal 2019-05-16 Completed University o f Polysaccharide, 00:00:00 [place] Med ical PPSV23 (PNEUMOVAX) Branch Pneumococcal 2019-05-16 Completed University o f Polysaccharide, 00:00:00 [place] Med ical PPSV23 (PNEUMOVAX) Branch Pneumococcal 2019-05-16 Completed University o f Polysaccharide, 00:00:00 [place] Med ical PPSV23 (PNEUMOVAX) Branch Pneumococcal 2019-05-16 Completed University o f Polysaccharide, 00:00:00 [place] Med ical PPSV23 (PNEUMOVAX) Branch Pneumococcal 2019-05-16 Completed University o f Polysaccharide, 00:00:00 [place] Med ical PPSV23 (PNEUMOVAX) Branch Pneumococcal 2019-05-16 Completed University o f Polysaccharide, 00:00:00 [place] [facility] ical PPSV23 (PNEUMOVAX) Branch Pneumococcal 2019-05-16 Completed University o f Polysaccharide, 00:00:00 [place] [facility] ical PPSV23 (PNEUMOVAX) Branch Zoster Vaccine 2019-01-30 Completed University of Recombinant 00:00:00 [facility] Zoster Vaccine 2019-01-30 Completed University of Recombinant 00:00:00 [facility] Zoster Vaccine 2019-01-30 Completed University of Recombinant 00:00:00 [facility] Zoster Vaccine 2019-01-30 Completed University of Recombinant 00:00:00 [facility] Zoster Vaccine 2019-01-30 Completed University of Recombinant 00:00:00 [facility] Zoster Vaccine 2019-01-30 Completed University of Recombinant 00:00:00 [facility] Zoster Vaccine 2019-01-30 Completed University of Recombinant 00:00:00 [facility] Zoster Vaccine 2019-01-30 Completed University of Recombinant 00:00:00 [facility] Pneumococcal 2018-05-05 Completed University o f Polysaccharide, 00:00:00 [place] [facility] ical PPSV23 (PNEUMOVAX) Branch Pneumococcal 13 2018-05-05 Completed Universit y of Conjugate, PCV13 00:00:00 [facility] dical (Prevnar 13) Branch Pneumococcal 2018-05-05 Completed University o f Polysaccharide, 00:00:00 [place] Med ical PPSV23 (PNEUMOVAX) Branch Pneumococcal 13 2018-05-05 Completed Universit y of Conjugate, PCV13 00:00:00 [place] Me dical (Prevnar 13) Branch Pneumococcal 2018-05-05 Completed University o f Polysaccharide, 00:00:00 [place] Med ical PPSV23 (PNEUMOVAX) Branch Pneumococcal 13 2018-05-05 Completed Universit y of Conjugate, PCV13 00:00:00 [place] Me dical (Prevnar 13) Branch Pneumococcal 2018-05-05 Completed University o f Polysaccharide, 00:00:00 [place] Med ical PPSV23 (PNEUMOVAX) Branch Pneumococcal 13 2018-05-05 Completed Universit y of Conjugate, PCV13 00:00:00 [place] Me dical (Prevnar 13) Branch Pneumococcal 2018-05-05 Completed University o f Polysaccharide, 00:00:00 [place] Med ical PPSV23 (PNEUMOVAX) Branch Pneumococcal 13 2018-05-05 Completed Universit y of Conjugate, PCV13 00:00:00 [place] Me dical (Prevnar 13) Branch Pneumococcal 2018-05-05 Completed University o f Polysaccharide, 00:00:00 [place] Med ical PPSV23 (PNEUMOVAX) Branch Pneumococcal 13 2018-05-05 Completed Universit y of Conjugate, PCV13 00:00:00 [place] Me dical (Prevnar 13) Branch Pneumococcal 2018-05-05 Completed University o f Polysaccharide, 00:00:00 [place] Med ical PPSV23 (PNEUMOVAX) Branch Pneumococcal 13 2018-05-05 Completed Universit y of Conjugate, PCV13 00:00:00 [place] Me dical (Prevnar 13) Branch Pneumococcal 2018-05-05 Completed University o f Polysaccharide, 00:00:00 [place] Med ical PPSV23 (PNEUMOVAX) Branch Pneumococcal 13 2018-05-05 Completed Universit y of Conjugate, PCV13 00:00:00 [place] Me dical (Prevnar 13) Branch Influenza High Dose 2018-05-04 Completed Unive rsity of 00:00:00 [facility] Influenza High Dose 2018-05-04 Completed Unive rsity of 00:00:00 [facility] Influenza High Dose 2018-05-04 Completed Unive rsity of 00:00:00 [facility] Influenza High Dose 2018-05-04 Completed Unive rsity of 00:00:00 [facility] [facility] Influenza High Dose 2018-05-04 Completed Unive rsity of 00:00:00 [facility] Influenza High Dose 2018-05-04 Completed Unive rsity of 00:00:00 [facility] Influenza High Dose 2018-05-04 Completed Unive rsity of 00:00:00 [facility] Influenza High Dose 2018-05-04 Completed Unive rsity of 00:00:00 [facility] Influenza High Dose 2017-04-14 Completed Unive rsity of 00:00:00 [facility] Influenza High Dose 2017-04-14 Completed Unive rsity of 00:00:00 [facility] Influenza High Dose 2017-04-14 Completed Unive rsity of 00:00:00 [facility] Influenza High Dose 2017-04-14 Completed Unive rsity of 00:00:00 [facility] Influenza High Dose 2017-04-14 Completed Unive rsity of 00:00:00 [facility] Influenza High Dose 2017-04-14 Completed Unive rsity of 00:00:00 [facility] Influenza High Dose 2017-04-14 Completed Unive rsity of 00:00:00 [facility] Influenza High Dose 2017-04-14 Completed Unive rsity of 00:00:00 [facility] Influenza High Dose 2016-05-08 Completed Unive rsity of 00:00:00 [facility] Influenza High Dose 2016-05-08 Completed Unive rsity of 00:00:00 [facility] Influenza High Dose 2016-05-08 Completed Unive rsity of 00:00:00 [facility] Influenza High Dose 2016-05-08 Completed Unive rsity of 00:00:00 [facility] Influenza High Dose 2016-05-08 Completed Unive rsity of 00:00:00 [facility] Influenza High Dose 2016-05-08 Completed Unive rsity of 00:00:00 [facility] Influenza High Dose 2016-05-08 Completed Unive rsity of 00:00:00 [facility] Influenza High Dose 2016-05-08 Completed Unive rsity of 00:00:00 [facility] Influenza High Dose 2016-04-05 Completed Unive rsity of 00:00:00 [facility] Influenza High Dose 2016-04-05 Completed Unive rsity of 00:00:00 [facility] Influenza High Dose 2016-04-05 Completed Unive rsity of 00:00:00 [facility] Influenza High Dose 2016-04-05 Completed Unive rsity of 00:00:00 [facility] Influenza High Dose 2016-04-05 Completed Unive rsity of 00:00:00 [facility] Influenza High Dose 2016-04-05 Completed Unive rsity of 00:00:00 [facility] Influenza High Dose 2016-04-05 Completed Unive rsity of 00:00:00 [facility] Influenza High Dose 2016-04-05 Completed Unive rsity of 00:00:00 [facility] Pneumococcal 2015-06-23 Completed University o f Polysaccharide, 00:00:00 [place] [facility] PPSV23 (PNEUMOVAX) Branch Pneumococcal 2015-06-23 Completed University o f Polysaccharide, 00:00:00 [place] [facility] PPSV23 (PNEUMOVAX) Branch Pneumococcal 2015-06-23 Completed University o f Polysaccharide, 00:00:00 [place] [facility] PPSV23 (PNEUMOVAX) Branch Pneumococcal 2015-06-23 Completed University o f Polysaccharide, 00:00:00 [place] [facility] PPSV23 (PNEUMOVAX) Branch Pneumococcal 2015-06-23 Completed University o f Polysaccharide, 00:00:00 [place] [facility] PPSV23 (PNEUMOVAX) Branch Pneumococcal 2015-06-23 Completed University o f Polysaccharide, 00:00:00 [place] [facility] PPSV23 (PNEUMOVAX) Branch Pneumococcal 2015-06-23 Completed University o f Polysaccharide, 00:00:00 [place] [facility] PPSV23 (PNEUMOVAX) Branch Pneumococcal 2015-06-23 Completed University o f Polysaccharide, 00:00:00 [place] [facility] PPSV23 (PNEUMOVAX) Branch Zoster(Zostavax)( 2006-10-06 Completed Unive rsity of ingles) 00:00:00 [facility] Zoster(Zostavax)( 2006-10-06 Completed Unive rsity of ingles) 00:00:00 [facility] Zoster(Zostavax)( 2006-10-06 Completed Unive rsity of ingles) 00:00:00 [facility] Zoster(Zostavax)( 2006-10-06 Completed Unive rsity of ingles) 00:00:00 [facility] Zoster(Zostavax)( 2006-10-06 Completed Unive rsity of ingles) 00:00:00 [place] [facility] Zoster(Zostavax)( 2006-10-06 Completed Unive rsity of ingles) 00:00:00 [facility] Zoster(Zostavax)( 2006-10-06 Completed Unive rsity of ingles) 00:00:00 [facility] Branch Zoster(Zostavax)( 2006-10-06 Completed Unive rsity of ingles) 00:00:00 [facility] Vital Signs Vital Name Observation Time Observation Value Comments Source HEIGHT 2020-05-08 11:00:00 157.5 cm WEIGHT 2020-05-08 11:00:00 48.988 kg WEIGHT 2020-05-02 14:15:00 52.164 kg HEIGHT 2020-05-02 14:15:00 157.5 cm Systolic blood 2022-05-28 18:58:00 133 mm[Hg] Univer sity of pressure [facility] Diastolic blood 2022-05-28 18:58:00 63 mm[Hg] Unive rsity of pressure [facility] Heart rate 2022-05-28 18:50:00 80 /min [facility] Body temperature 2022-05-28 18:50:00 37.17 Nae Univ ersity [facility] Respiratory rate 2022-05-28 18:50:00 16 /min Univ ersity of [facility] Body height 2022-05-28 18:50:00 157.5 cm [facility] Body weight 2022-05-28 18:50:00 53.524 kg [facility] BMI 2022-05-28 18:50:00 21.58 kg/m2 [facility] Systolic blood 2022-05-07 16:22:00 164 mm[Hg] Univer sity of pressure [facility] Diastolic blood 2022-05-07 16:22:00 77 mm[Hg] Unive rsity of pressure [facility] Heart rate 2022-05-07 16:20:00 70 /min [facility] ty [facility] Body temperature 2022-05-07 16:20:00 36.83 Nae Univ ersity of [facility] Respiratory rate 2022-05-07 16:20:00 18 /min Univ ersity of [facility] Body height 2022-05-07 16:20:00 157.5 cm [facility] Body weight 2022-05-07 16:20:00 51.982 kg [facility] BMI 2022-05-07 16:20:00 20.96 kg/m2 [facility] Oxygen saturation in 2022-05-07 16:20:00 97 /min [facility] blood by [facility] Pulse oximetry Branch HEIGHT 2020-05-08 11:00:00 157.5 cm WEIGHT 2020-05-08 11:00:00 48.988 kg WEIGHT 2020-05-02 14:15:00 52.164 kg HEIGHT 2020-05-02 14:15:00 157.5 cm Body temperature 2020-04-21 16:08:00 36.67 Nae [facility] Respiratory rate 2020-04-21 16:08:00 16 /min [facility] Body height 2020-04-21 16:08:00 157.5 cm [facility] Body weight 2020-04-21 16:08:00 52.073 kg [facility] BMI 2020-04-21 16:08:00 21.00 kg/m2 [facility] BMI 2020-04-10 17:40:00 20.63 kg/m2 [facility] Systolic blood 2020-04-10 17:40:00 113 mm[Hg] [facility] pressure Medicine Diastolic blood 2020-04-10 17:40:00 72 mm[Hg] [facility] pressure Medicine Heart rate 2020-04-10 17:40:00 98 /min [facility] Body temperature 2020-04-10 17:40:00 36.11 Nae [facility] Respiratory rate 2020-04-10 17:40:00 16 /min [facility] Body height 2020-04-10 17:40:00 157.5 cm [facility] Body weight 2020-04-10 17:40:00 51.166 kg [facility] Procedures Procedure Date / Time Performed Performing Clinician Sourc e POCT URINALYSIS W/O 2022-05-28 19:06:[address] [facility] SPECIFIC GRAVITY [facility] Branch REFERRAL- 2022-01-29 05:01:00 Doctor Unassigned, No Univer [facility] REQUEST/RESPONSE Name Medical Branch Plan of Care Planned Activity Planned Date Details Comments Source Future Scheduled 2023-03-[address] [facility] Test 00:00:00 (Season Ended) [code Medical Center = INFLUENZA VACCINE (Season Ended)] Future Scheduled 2022-07-[address] [facility] Test 00:00:00 (12+) [code = [facility] DEPRESSION SCREENING (12+)] Future Scheduled 2022-07-11 FALLS RISK SCREENING [facility] Test 00:00:00 [code = FALLS RISK Medical C enter SCREENING] Future Scheduled 2022-03-[address] [facility] Test 00:00:00 (#1) [code = [facility] INFLUENZA VACCINE (#1)] Future Scheduled 2022-02-[address] [facility] 00:[facility]:00 malignant neoplasm of [facility] breast (procedure) [code = 431114583] Future Scheduled 2022-02-[address] [facility] Test 00[facility]00:00 malignant neoplasm of [facility] breast (procedure) [code = 116534606] Future Scheduled 2021-07-[address] [facility] Test 00:00:00 (12+) [code = [facility] DEPRESSION SCREENING (12+)] Future Scheduled 2021-07-11 FALLS RISK SCREENING [facility] Test 00:00:00 [code = FALLS RISK Medical C enter SCREENING] Future Scheduled 2021-05-[address] [facility] Test 00:00:00 Counseling and Medical Cente r Screening (12+) [code = Tobacco Cessation Counseling and Screening (12+)] Future Scheduled 2020-08-[address] [facility] 00:00:00 WELLNESS (YEAR 2 or Medical Center FIRST YEAR if no IPPE) [code = MEDICARE ANNUAL WELLNESS (YEAR 2 or FIRST YEAR if no IPPE)] Future Scheduled 2020-08-[address] [facility] 00:00:00 WELLNESS (YEAR 2 or Medical Center FIRST YEAR if no IPPE) [code = MEDICARE ANNUAL WELLNESS (YEAR 2 or FIRST YEAR if no IPPE)] Future Scheduled 2006-12-01 SHINGLES VACCINES ([address] [facility] Test 00:00:00 of 3) [code = Medical Center SHINGLES VACCINES (2 of 3)] Future Scheduled 2006-12-01 SHINGLES VACCINES ([address] [facility] Test 00:00:00 of 3) [code = Medical Center SHINGLES VACCINES (2 of 3)] Future Scheduled 1967 DTAP/TDAP/TD VACCINES [facility] 00:00:00 (1 - Tdap) [code = Medical C enter DTAP/TDAP/TD VACCINES (1 - Tdap)] Future Scheduled 1967 DTAP/TDAP/TD VACCINES [facility] 00:00:00 (1 - Tdap) [code = Medical C enter DTAP/TDAP/TD VACCINES (1 - Tdap)] Future Scheduled 1966 HEPATITIS C SCREENING [facility] 00:00:00 [code = HEPATITIS C Medical Center SCREENING] Future Scheduled 1966 HEPATITIS C SCREENING [facility] 00:00:00 [code = HEPATITIS C Medical Center SCREENING] Future Scheduled 1948 COVID-19 VACCINE (#1) [facility] 00:00:00 [code = COVID-[address] VACCINE (#1)] Future Scheduled 1948 COVID-19 VACCINE (#1) [facility] 00:00:00 [code = COVID-[address] VACCINE (#1)] Future Scheduled [address] [facility] 00:00:00 malignant neoplasm of Medica l Center colon (procedure) [code = 478143451] Future Scheduled [address] [facility] 00:00:00 malignant neoplasm of Medica l Center colon (procedure) [code = 421290047] Future Scheduled 1948 DXA SCAN [code = DXA [facility] Test 00:00:00 SCAN] Medical Center Future Scheduled [address] [facility] Test 00:00:00 malignant neoplasm of Medica l Center colon (procedure) [code = 840439541] Future Scheduled [address] [facility] Test 00:00:00 malignant neoplasm of Medica l Center colon (procedure) [code = 933692143] Future Scheduled 1948 Sigmoidoscopy [code = [facility] Sigmoidoscopy] Medical Cente r Future Scheduled [address] [facility] 00:00:00 (combo) [code = CT Medical C enter Colonography (combo)] Future Scheduled [address] [facility] Test 00:00:00 malignant neoplasm of Medica l Center colon (procedure) [code = 927548790] Future Scheduled 1948 DXA SCAN [code = DXA [facility] Test 00:00:00 SCAN] [facility] Future Scheduled [address] [facility] Test 00:00:00 malignant neoplasm of Medica l Center colon (procedure) [code = 372605614] Future Scheduled [address] [facility] Test 00:00:00 malignant neoplasm of Medica l Center colon (procedure) [code = 575853399] Future Scheduled 1948 Sigmoidoscopy [code = [facility] 00:[facility] Sigmoidoscopy] Medical Cente r Future Scheduled [address] [facility] 00:00:00 (combo) [code = CT Medical C enter Colonography (combo)] Future Scheduled [address] [facility] Test 00:00:00 malignant neoplasm of Medica l Center colon (procedure) [code = 842623754] Future Scheduled COLON CANCER [facility] ege Test SCREENING: of Medicine COLONOSCOPY [code = COLON CANCER SCREENING: COLONOSCOPY] Future Scheduled TETANUS SHOT (ADULT) [facility] Test [code = TETANUS SHOT of Medi cine (ADULT)] Future Scheduled HEPATITIS C SCREENING [facility] Test [code = HEPATITIS C of Medic ine SCREENING] Future Scheduled ZOSTER VACCINE (1 of [facility] Test 2) [code = ZOSTER of Medicin e VACCINE (1 of 2)] Future Scheduled FALL SCREEN [code = [facility] Test FALL SCREEN] of Medicine Future Scheduled OSTEOPOROSIS [facility] Test SCREENING [code = of Medicin e OSTEOPOROSIS SCREENING] Future Scheduled MEDICARE AWV [facility] Test (Initial) [code = of Medicin e MEDICARE AWV (Initial)] Future Scheduled MAMMOGRAM ANNUAL [facility] Test [code = MAMMOGRAM of Medicin e ANNUAL] Future Scheduled COLON CANCER [facility] ege Test SCREENING: of Medicine COLONOSCOPY [code = COLON CANCER SCREENING: COLONOSCOPY] Future Scheduled TETANUS SHOT (ADULT) [employer] Test [code = TETANUS SHOT of Medi cine (ADULT)] Future Scheduled HEPATITIS C SCREENING [employer] Test [code = HEPATITIS C of Medic ine SCREENING] Future Scheduled ZOSTER VACCINE (1 of [employer] Test 2) [code = ZOSTER of Medicin e VACCINE (1 of 2)] Future Scheduled FALL SCREEN [code = [employer] Test FALL SCREEN] of Medicine Future Scheduled OSTEOPOROSIS [facility] Test SCREENING [code = of Medicin e OSTEOPOROSIS SCREENING] Future Scheduled MEDICARE AWV [facility] Test (Initial) [code = of Medicin e MEDICARE AWV (Initial)] Future Scheduled MAMMOGRAM ANNUAL [facility] Test [code = MAMMOGRAM of Medicin e ANNUAL] Future Scheduled COMPLETE PFT WITH 1 Occurrences [employer] Test BRONCHODILATOR [code starting of Medi cine = 31734] 04/10/2020 until 04/11/2021 Future Scheduled EGD W/MAC - GI DEPT 1 Occurrences [employer] Test [code = 26236] starting of Medicine 04/21/2020 until 10/20/2020 Future Scheduled NOVEL 2018 1 Occurrences [facility] Col lege Test CORONAVIRUS(COVID-19) starting of Med icine ,ESTUARDO [code = U0004] 04/21/2020 until 10/20/2020 Future Scheduled NOVEL 2018 1 Occurrences [facility] Col lege Test CORONAVIRUS(COVID-19) starting of Med icine ,ESTUARDO [code = U0004] 04/10/2020 until 10/09/2020 Encounters Start End Encounter Admission Attending Care Care Encounter Source Date/Time Date/Time Type Type Clinicians Facility Department ID 2021-05-10 Emergency [facility] [id number] Univers [facility]09 [facility] [id number] Univers 12:52:48 MAURICE [facility] 2021-05-08 Outpatient Odilia NORWOOD [facility] CARRI [id number] Univers 10:32:52 MAURICE [facility] 2021-05-08 Emergency [facility] [id number] Univers 00:28:51 [facility] 2021-04-15 Outpatient BALDEMAR CARLSONH Surgery [id number] [facility] 10:22:12 JOANNE 2022-09-18 2022-09-18 [facility] [id number] Univers 00:00:00 00:00:00 Helga HEALTH 350.1.13.10 it y of [place] 4.2.7.2.686 Ge as ISSAC?BLEA [id number] [facility] [place] 370 [facility] 2022-07-27 2022-07-[address] [facility] [id number] Univers 10:00:00 10:00:00 [facility] 2022-07-27 2022-07-27 [facility] [id number] Univers 10:00:00 10:00:00 [facility] 2022-07-27 2022-07-27 Out[facility] [id number] Univers 10:00:00 10:00:00 [facility] 2022-06-30 2022-06-30 Telephone [facility] [id number] Univers 00:00:00 00:00:00 [facility] 350.1.13.10 i ty [place].2.[place] [id number] [address] 2022-06-16 2022-06-16 Telephone [facility] [id number] Univers 00:00:00 00:00:00 [facility] 350.1.13.10 it y of [place] 4.2.7.2.686 Ge as ISSAC?BLEA [phone] [place] [address] [facility] 2022-05-28 2022-05-28 Office [facility] 1.2.840.114 [id number] Univers 13:30:00 13:30:00 Visit Baltazar GRAYS[place] 350.1.13.10 i [place] 4.2.[place].2.[place] [id number] [address] 2022-05-28 2022-05-28 Outpatient [facility] [id number] Univers 13:30:00 13:23:49 BALTAZAR rojas [facility] 2022-05-10 2022-05-10 Outpatient SFA SFA [id number] Yann 14:32:23 14:32:23 1031 F Panfilo 2022-05-07 2022-05-07 Urgent Nurse, [place] [facility] 1.2.840.114 [id number] Univers 11:00:00 11:20:00 Care Unknown, [facility] HEALTH 350.1.13.10 ity of [place] 4.2.7.2.686 [place] ISSAC?BLEA [id number] [place] [address] [facility] OFFICE [facility] 2022-05-07 2022-05-07 Outpatient R RITCHIE [facility] [id number] Univers 11:00:00 11:00:00 [place] itbeatrice [facility] 2022-03-24 2022-03-24 Telephone [facility] [id number] Univers 00:00:00 00:00:00 [facility] 350.1.13.10 it y of [place] 4.2.7.2.686 Ge as ISSAC?BLEA [id number] [place] [address] [facility] 2022-03-24 2022-03-24 Telephone [facility] [id number] Univers 00:00:00 00:00:00 [facility] HEALTH 350.1.13.10 it y of [place] 4.2.7.2.686 Ge as ISSAC?BLEA [id number] [place] [address] [facility] OFFICE [facility] 2022-02-26 2022-02-26 Telemedici [facility] 1.2.840.114 [id number] Univers 16:15:00 16:30:00 ne Visit Baltazar GRAYS[place] 350.1.13.10 ity of [place] 4.2.7.2.686 [place] [id number] [place] ISHMAEL 098 [facility] 2022-02-26 2022-02-26 Outpatient [facility] [id number] Univers 16:15:00 16:15:00 BALTAZAR ity [facility] 2022-02-10 2022-02-10 Telephone [facility] 1.2.840.114 [id number] Univers 00:00:00 00:00:00 Baltazar [place] 350.1.13.10 i ty [place] 4.2.7.2.[place] [id number] [address] 2022-02-05 2022-02-05 Telephone [facility] 1.2.840.114 [id number] Univers 00:00:00 00:00:00 Baltazar [place] 350.1.13.10 i ty [place] 4.2.7.2.[place] [id number] [address] 2022-02-05 2022-02-05 Telephone [facility] 1.2.840.114 [id number] Univers 00:00:00 00:00:00 Baltazar [place] 350.1.13.10 i ty [place] 4.2.7.2.[place] [id number] [address] 2022-02-03 2022-02-03 Outpatient R EDX [facility] [id number] Univers 13:30:00 13:30:00 JYOTHI rojas [facility] 2022-02-01 2022-02-01 Hospital Radiology [facility] 1.2.840.114 [id number] Univers 09:09:25 23:59:00 Encounter [place] 350.1.13.10 ity [facility] 4.2.7.2.686 [place] [id number] [address] 2022-02-01 2022-02-01 Outpatient R RADIOLOGY [facility] [id number] Univers 09:09:25 09:09:25 ity of [facility] 2022-02-01 2022-02-01 Outpatient R RADIOLOGY [facility] [id number] Univers 09:07:56 09:08:00 ity of [facility] 2022-02-01 2022-02-01 Hospital Radiology [facility] 1.2.840.114 [id number] Univers 09:07:56 09:08:00 Encounter [place] 350.1.13.10 ity of [place] 4.2.7.2.686 [place] [id number] [facility] [address] [place] 2022-02-01 2022-02-01 Outpatient R RADIOLOGY [facility] [id number] Univers 09:07:56 09:07:56 ity of [facility] 2022-02-01 2022-02-01 Outpatient R RADIOLOGY [facility] [id number] Univers 00:00:00 00:00:00 ity of [facility] 2022-02-01 2022-02-01 Outpatient R RADIOLOGY [facility] [id number] Univers 00:00:00 00:00:00 ity of [facility] 2022-02-01 2022-02-01 Telephone Dex [facility] [id number] Univers 00:00:00 00:00:00 Jyothi [facility] 350.1.13.10 it y of [place] 4.2.7.2.686 Ge as ISSAC?BLEA [phone] [place] TERESA [address] [place] MEDICAL OFFICE BUILDING 2022-01-29 2022-01-29 Outpatient R RADIOLOGY [facility] [id number] Univers 00:00:00 00:00:00 ity of [facility] 2022-01-29 2022-01-29 Telephone Orestes [place] [id number] Univers 00:00:00 00:00:00 Alvaro [facility] 350.1.13.10 it y of [place] 4.2.7.2.686 Ge as ISSAC?BLEA [id number] [place]ES[place] [address] [place] MEDICAL OFFICE BUILDING 2022-01-29 2022-01-29 Orders Doctor JAMAL 1.2.840.114 [id number] Univers 00:00:00 00:00:00 Only Unassigned, FLAVIA 350.1.13.10 ity of [place] [facility] 4.2.7.2.686 Ge as [id number] [facility] [address] [place] 2022-01-28 2022-01-28 Telephone Orestes [facility] [id number] Univers 00:00:00 00:00:00 [employer] HEALTH 350.1.13.10 it y of [place] 4.2.7.2.686 Ge as ISSAC?BLEA [id number] [place] [address] [facility] OFFICE [facility] 2022-01-28 2022-01-28 Telephone [facility] [id number] Univers 00:00:00 00:00:00 Wentong HEALTH 350.1.13.10 it y of [place] 4.2.7.2.686 Ge as ISSAC?BLEA [id number] [place] [address] [facility] OFFICE [facility] 2022-01-25 2022-01-25 Abstract [facility] 1.2.840.114 [id number] Univers 00:00:00 00:00:00 Jyothinap- Naturally Attached Parents 350.1.13.10 it [facility] 4.2.7.2.686 Ge as ISSAC?BLEA [id number] [place] [address] [facility] OFFICE [facility] 2022-01-25 2022-01-25 Telephone [facility] 1.2.840.114 [id number] Univers 00:00:00 00:00:00 Baltazarkassie [place] 350.1.13.10 i ty of [place] [id number] [place] QUIÑONES 098 [facility] 2022-01-25 2022-01-25 Telephone [facility] 1.2.840.114 [id number] Univers 00:00:00 00:00:00 Baltazar KEILATON 350.1.13.10 i ty of [facility] 4.2.7.2.[place] [phone] [place] dicyanet NAL 098 [facility] 2022-01-20 2022-01-20 Outpatient R RADIOLOGY [facility] [id number] Univers 15:16:13 23:59:00 ity of [facility] 2022-01-20 2022-01-20 Hospital Radiology [facility] 1.2.840.114 [id number] Univers 15:16:13 23:59:00 Encounter GRAYSON 350.1.13.10 ity of [place].2.686 [place] [id number] [facility] lakshmi 8[address] [place] 2022-01-20 2022-01-20 Outpatient R RADIOLOGY [facility] [id number] Univers 15:16:13 23:59:00 ity [facility] 2022-01-20 2022-01-20 Outpatient R RADIOLOGY [facility] [id number] Univers 00:00:00 00:00:00 ity [facility] 2022-01-19 2022-01-19 Cable Puller Lab, Ang - Db [facility] 1.2.840.1 14 [id number] Univers 11:30:00 11:45:00 Visit Orestes [facility] 350.1.13.10 ity of [place] 4.2.7.2.686 Ge as ISSAC?BLEA [id number] [place] [facility] [address] [place] MEDICAL OFFICE [facility] 2022-01-19 2022-01-19 Outpatient R ORESTES [facility] [id number] Univers 11:30:00 11:30:00 [facility]22-[facility]-19 2022-01-19 [facility] 1.2.840.114 [id number] Univers 11:00:00 11:24:26 Visit [facility] 350.1.13.10 it y of [facility] 4.2.7.2.686 Ge as ISSAC?BLEA [id number] [place] [facility] 220 [facility] OFFICE [facility] 2022-01-19 2022-01-19 Outpatient R ORESTES [facility] [id number] Univers 11:00:00 11:24:26 [facility] 2022-01-15 2022-01-15 Outpatient R RASHAAD [facility] [id number] Univers 15:30:00 15:54:50 BALTAZAR [facility] 2022-01-15 2022-01-15 Office [facility] 1.2.840.114 [id number] Univers 15:30:00 15:54:50 Visit Baltazar [place] 350.1.13.10 i ty of [place].2.[place].2.686 [place] [facility] [phone] Wa dical [facility] 098 [facility] 2022-01-15 2022-01-15 Office [facility] 1.2.840.114 [id number] Univers 15:30:00 15:54:50 Visit Baltazar GALICIA 350.1.13.10 i ty of [facility] 4.2.7.2.686 [place] [id number] Wa dical NAL 098 [facility] 2022-01-15 2022-01-15 Outpatient R [facility] [id number] Univers 15:30:00 15:54:50 BALTAZAR crystal [facility] 2022-01-15 2022-01-15 Outpatient R [facility] [id number] Univers 15:30:00 15:30:00 BALTAZAR ity [facility] 2022-01-04 2022-01-04 Telephone [facility] 1.2.840.114 [id number] Univers 00:00:00 00:00:00 Baltazar GALICIA 350.1.13.10 i ty of [place] [phone] Wa destinyal NAL 098 [facility] 2021-12-30 2021-12-30 Telephone [facility] 1.2.840.114 [id number] Univers 00:00:00 00:00:00 Baltazar GALICIA 350.1.13.10 i ty of [place] 4.[place].2.[place] [id number] Wa dical NAL 098 [facility] 2021-12-29 2021-12-29 Cable Puller 2, Adc Lab [facility] 1.2.840.114 [id number] Univers 09:30:00 09:45:00 Visit Baltazar NeilAMINATA 350.1.13.10 ity [address] [facility] 4.2.7.2.686 [place] [id number] [place] [facility] 353 [facility] 2021-12-29 2021-12-29 Outpatient R [facility] [id number] Univers 09:30:00 09:30:00 BALTAZAR rojas [facility] 2021-12-18 2021-12-18 Outpatient R [facility] [id number] Univers 09:00:00 09:42:46 BALTAZAR itbeatrice [facility] 2021-12-18 2021-12-18 Office [facility] 1.2.840.114 [id number] Univers 09:00:00 09:42:46 Visit Baltazar GALICIA 350.1.13.10 i ty of [place].2.[place] [id number] Wa dical NAL 098 [facility] 2021-12-18 2021-12-18 Telephone [place], [facility] 1.2.474.714 [id number] Univers 00:00:00 00:00:00 [facility] 350.1.13.10 it y of [place] 4.2.7.2.686 Ge as ISSAC?BLEA [phone] Wa dical KNEY [address] [place] MEDICAL OFFICE [facility] 2021-12-09 2021-12-09 Orders Doctor JAMAL 1.2.840.114 [id number] Univers 00:00:00 00:00:00 Only Unassigned, FLAVIA 350.1.13.10 ity of Alsen [facility] 4.2.7.2.686 Ge as [phone] [facility] 00[address] [place] 2021-11-20 2021-11-20 Outpatient R DEX [facility] [id number] Univers 10:30:00 10:30:00 JYOTHI rojas [facility] 2021-11-20 2021-11-20 Outpatient R DEX [facility] [id number] Univers 10:30:00 10:30:00 JYOTHI rojas [facility] 2021-11-19 2021-11-19 Outpatient R RADIOLOGY [facility] [id number] Univers 08:02:51 23:59:00 ity of [facility] 2021-11-19 2021-11-19 Hospital Radiology [facility] 1.2.840.114 [id number] Univers 08:00:00 23:59:00 Encounter GRAYSON 350.1.13.10 ity of [place].2.7.2.[place] CAMPUS [phone] [facility] 807 [place] 2021-11-17 2021-11-17 Outpatient R EPIFANIO [facility] [id number] Univers 11:30:00 11:30:00 JB ity of [facility] 2021-10-26 2021-10-26 Telephone Orestes [facility] 1.2.629.036 [id number] Univers 00:00:00 00:00:00 [place] HEALTH 350.1.13.10 it y of [place] 4.2.7.2.686 Ge as ISSAC?BLEA [phone] [place] [address] [place] MEDICAL OFFICE BUILDING 2021-10-21 2021-10-21 Telephone Dex [facility] 1.2.726.836 [id number] Univers 00:00:00 00:00:00 Jyothi HEALTH 350.1.13.10 it y of [place] 4.2.7.2.686 Ge as ISSAC?BLEA [phone] [place] 044 [facility] OFFICE [facility] 2021-10-21 2021-10-21 Telephone Dex [facility] 1.2.210.094 [id number] Univers 00:00:00 00:00:00 Jyothi HEALTH 350.1.13.10 it y of [place] 4.2.7.2.686 Ge as ISSAC?BLEA [phone] [place] 044 [facility] OFFICE [facility] 2021-10-20 2021-10-20 Cable Puller Lab, Ang - Db [facility] 1.2.840.1 14 [id number] Univers 10:15:00 11:06:59 Visit Jyothi Kowalski Cuponomia 350.1.13.10 ity of [place] 4.2.7.2.686 Ge as ISSAC?BLEA [phone] [place] 353 [facility] OFFICE [facility] 2021-10-20 2021-10-20 Cable Puller Lab, Ang - Db [facility] 1.2.840.1 14 [id number] Univers 10:15:00 11:06:59 Visit Jyothi Kowalski Cuponomia 350.1.13.10 ity of [place] 4.2.7.2.686 Ge as ISSAC?BLEA [id number] [place] 353 [facility] OFFICE [facility] 2021-10-20 2021-10-20 Cable Puller Lab, Ang - Db [facility] 1.2.840.1 14 [id number] Univers 10:15:00 10:30:00 Visit Jyothi Kowalski 350.1.13.10 ity of [place] 4.2.7.2.686 Ge as ISSAC?BLEA [phone] [facility] 353 [facility] OFFICE [facility] 2021-10-20 2021-10-20 Office [facility] 1.2.840.114 [id number] Univers 09:30:00 10:16:49 Visit Jyothi HODGES 350.1.13.10 it y of [place] 4.2.7.2.686 Ge as ISSAC?BLEA [id number] [address] OFFICE [facility] 2021-10-20 2021-10-20 [facility] [id number] Univers 10:15:00 10:15:00 JYOTHI [facility] 2021-10-20 2021-10-20 Outpatient [facility] [id number] Univers 10:15:00 10:15:00 JYOTHI [facility] 2021-10-14 2021-10-14 Outpatient R [facility] [id number] Univers 16:00:00 16:00:00 ROSIBEL beatrice [facility] 2021-10-14 2021-10-14 Telephone [facility] 1.2.359.938 [id number] Univers 00:00:00 00:00:00 Rosibel A [facility] 350.1.13.10 i ty of [place] 4.2.7.2.686 Ge as ISSAC?BLEA [id number] [address] OFFICE [facility] 2021-10-08 2021-10-08 Outpatient R LYRIC [facility] [id number] Univers 09:30:00 10:29:49 [facility] 2021-10-08 2021-10-08 Office Lyric [facility] 1.2.840.114 [id number] Univers 09:30:00 10:29:49 Visit Rm, Adc Surg Spec Procedure [place] 3 50.1.13.10 ity of [place] [id number] Me dical NAL 204 [facility] 2021-10-01 2021-10-01 Orders Doctor JAMAL 1.2.840.114 [id number] Univers 00:00:00 00:00:00 Only Unassigned, FLAVIA 350.1.13.10 ity of [place] [facility] 4.2.7.2.686 Ge as [id number] [address] 2021-09-18 2021-09-18 Outpatient R [facility] [id number] Univers 14:30:00 14:57:30 BAL[facility]ZAR [facility] 2021-09-18 2021-09-18 Outpatient R [facility] [id number] Univers 14:30:00 14:57:30 [facility] 2021-09-18 2021-09-18 Refill [facility] 1.2.840.114 [id number] Univers 00:00:00 00:00:00 Baltazar GALICIA 350.1.13.10 i ty of [place].2.[place] [phone] Me dical NAL 098 [facility] 2021-09-18 2021-09-18 Orders Doctor JAMAL 1.2.840.114 [id number] Univers 00:00:00 00:00:00 Only Unassigned, FLAVIA 350.1.13.10 ity of [place] [facility] 4.2.7.2.686 Ge as [id number] [address] 2021-09-16 2021-09-16 Outpatient R [facility] [id number] Univers 13:00:00 13:00:00 ROSIBEL ity [facility] 2021-09-15 2021-09-15 Emergency X EBRABAUDILIO, [facility] ERT [id number] Univers 12:18:00 15:21:00 BERNICE ity [facility] 2021-09-15 2021-09-15 Emergency [facility], [facility] 1.2.840.114 [id number] Univers 12:18:00 15:21:00 Bernice GALICIA 350.1.13.10 i ty of [place].2.[place] [id number] [facility] [address] [place] 2021-09-15 2021-09-15 Telephone Nikkie Muse [facility] 1.2.840.114 [id number] Univers 00:00:00 00:00:00 Drew GALICIA 350.1.13.10 i ty of [place] [phone] [address] 2021-09-11 2021-09-11 Outpatient [facility] [id number] Univers 13:43:14 23:59:00 LYNDSEY itbeatrice [facility] 2021-09-11 2021-09-11 Hospital [facility] 1.2.840.114 [id number] Univers 13:43:14 23:59:00 Encounter Lyndsey GALICIA 350.1.13.10 ity [facility] 4.2.7.2.[place] [id number] [facility] [address] [place] 2021-09-03 2021-09-03 Outpatient R EDMUND [facility] [id number] Univers 09:00:00 10:23:34 IVANA rojas [facility] 2021-09-03 2021-09-03 Office EdmundUN[facility] 1.2.986.551 [id number] Univers 09:00:00 10:23:34 Visit Ivana GALICIA 350.1.13.10 i ty of [place] 4.[place].2.[place] [id number] [address] 2021-09-03 2021-09-03 Outpatient R [facility] [id number] Univers 09:00:00 09:00:00 IVANA rojas [facility] 2021-08-31 2021-08-31 Outpatient R GERMAIN [facility] [id number] Univers 11:30:00 12:44:19 WONDIFUL ity o f [facility] 2021-08-31 2021-08-31 Office GermainUN[facility] 1.2.840.114 [id number] Univers 11:30:00 12:44:19 Visit Wondiful A HEALTH 350.1.13.10 ity of [facility] 4.2.7.2.686 Ge as ISSAC?BLEA [phone] [place] 044 [facility] OFFICE [facility] 2021-08-27 2021-08-27 Telephone [facility] 1.2.193.263 [id number] Univers 00:00:00 00:00:00 Lyndsey GALICIA 350.1.13.10 ity [address] [facility] 4.2.7.2.686 [place] [phone] [facility] 204 [facility] 2021-08-25 2021-08-25 Outpatient R [facility] [id number] Univers 11:30:00 11:39:59 LYNDSEY itbeatrice [facility] 2021-08-25 2021-08-25 Office [facility]UN[facility] 1.2.840.114 [id number] Univers 11:30:00 11:39:59 Visit Lyndsey P[facility]AHONORHE[facility] 350.1.13.10 ity of [facility] 4.2.7.2.686 [place] [phone] [facility] 204 [facility] 2021-08-24 2021-08-24 Outpatient R MAYO [facility] [id number] Univers 13:15:00 13:59:09 HELGA itbeatrice [facility] 2021-08-20 2021-08-20 Urgent LeonorUN[facility] 1..840.114 [id number] Univers 12:20:00 12:40:00 Care Bernice Cuponomia 350.1.13.10 it y of [facility] 4.2.7.2.686 Ge as ISSAC?BLEA [phone] [place] 370 [facility] OFFICE [facility] 2021-08-20 2021-08-20 Outpatient R LEONOR [facility] [id number] Univers 12:20:00 12:20:00 RANIA ity [facility] 2021-08-20 2021-08-20 Telephone OliverUN[facility] 1..840.114 [id number] Univers 00:00:00 00:00:00 Leroy HEALTH 350.1.13.10 i ty of [facility] 4.2.7.2.686 Ge as ISSAC?BLEA [id number] [place] [address] [place] MEDICAL OFFICE [facility] 2021-08-19 2021-08-19 Urgent Oliver [facility] 1.2.840.114 [id number] Univers 17:40:00 17:40:00 Care Leroy HEALTH 350.1.13.10 i ty of [place] 4.2.7.2.686 Ge as ISSAC?BLEA [id number] [place] JENNY [address] [place] MEDICAL OFFICE [facility] 2021-08-19 2021-08-19 Outpatient R OLIVER [facility] [id number] Univers 17:40:00 17:27:59 LEROY ity o f [facility] 2021-08-07 2021-08-07 Outpatient R GERMAIN [facility] [id number] Univers 14:30:00 15:08:22 WONDIFUL ity o f [facility] 2021-08-07 2021-08-07 Office GermainUN[facility] 1.2.840.114 [id number] Univers 14:30:00 15:08:22 Visit Wonful A HEALTH 350.1.13.10 ity of [place] 4.2.7.2.686 Ge as ISSAC?BLEA [phone] [place] [facility] 044 [facility] OFFICE [facility] 2021-07-21 2021-07-21 Outpatient R ORESTES [facility] [id number] Univers 10:00:00 10:42:55 [facility] 2021-07-21 2021-07-21 Outpatient R ORESTES [facility] [id number] Univers 10:00:00 10:42:55 [facility] ity [facility] 2021-07-21 2021-07-21 Office OrestesUN[facility] 1.2.840.114 [id number] Univers 10:00:00 10:42:55 Visit [facility] HEALTH 350.1.13.10 it y of [place] 4.2.7.2.686 Ge as ISSAC?BLEA [id number] [place] 220 [facility] OFFICE [facility] 2021-07-21 2021-07-21 Telephone OrestesUN[facility] 1.2.877.512 [id number] Univers 00:00:00 00:00:00 Wentclaudia [place] 350.1.13.10 i ty of [facility]ARD[facility] 4.2.7.2.686 [place] [facility] [phone] [place] QUIÑONES 220 [facility] 2021-07-20 2021-07-20 Cable Puller Lab, Ang - Db [facility] 1.2.840.1 14 [id number] Univers 07:45:00 08:00:00 Visit Alvaro [place] [facility] 350.1.13.10 ity of [place] 4.2.7.2.686 Ge as ISSAC?BLEA [id number] [place] 353 [facility] OFFICE [facility] 2021-07-20 2021-07-20 Outpatient R ORESTES [facility] [id number] Univers 07:45:00 07:45:00 [facility] 2021-07-20 2021-07-20 Telephone GermainUN[facility] 1.2.840.114 [id number] Univers 00:00:00 00:00:00 Wondiful A HEALTH 350.1.13.10 ity of [place] 4.2.7.2.686 Ge as ISSAC?BLEA [phone] [facility] 044 [facility] OFFICE [facility] 2021-07-16 2021-07-16 Emergency X SINGER [facility] ERT [id number] Univers 09:01:00 11:30:00 JEFF solorzanobeatrice [facility] 2021-07-16 2021-07-16 Emergency [facility] 1.2.103.934 [id number] Univers 09:01:00 11:30:00 Jeff [facility] 350.1.13.10 i ty of [facility] 4.2.7.2.686 [place] [id number] [facility] [address] [place] 2021-07-10 2021-07-10 Office Ha [facility] 1.2.840.114 [id number] Univers 11:30:00 12:00:00 Visit Santhosh HEALTH 350.1.13.10 it y of [place] 4.2.7.2.686 Ge as ISSAC?BLEA [id number] Wa dicyanet [place] [address] [place] MEDICAL OFFICE [facility] 2021-07-10 2021-07-10 Outpatient R HA [facility] [id number] Univers 11:30:00 11:30:00 SANTHOSH crystal [facility] 2021-07-09 2021-07-09 Refill O[facility]esUN[facility] 1.2.840.114 [id number] Univers 00:00:00 00:00:00 Wentong [facility] 350.1.13.10 i ty of [facility]AND[facility] 4.2.7.2.686 [place] [phone] [facility] [address] 2021-07-06 2021-07-06 Telephone GermainUN[facility] 1.2.840.114 [id number] Univers 00:00:00 00:00:00 Wondiful A HEALTH 350.1.13.10 ity of [facility] 4.2.7.2.686 Ge as ISSAC?BLEA [id number] [address] OFFICE [facility] 2021-07-06 2021-07-06 Telephone OrestesUN[facility] 1.2.529.498 [id number] Univers 00:00:00 00:00:00 Wentong HEALTH 350.1.13.10 it y of [facility] 4.2.7.2.686 Ge as ISSAC?BLEA [id number] [address] OFFICE [facility] 2021-06-22 2021-06-22 Outpatient R CAROLINA [facility] [id number] Univers 10:00:00 10:00:00 crystal [facility] 2021-06-22 2021-06-22 Imm/Inj Vaccine, Ang Db Cbc Fam [facility] 1. 2.840.114 [id number] Univers 09:39:11 09:49:11 Visit Anthony Barrientos Cuponomia 350.1.13.10 ity of [place] 4.2.7.2.686 Ge as ISSAC?BLEA [id number] [address] MEDICAL OFFICE [facility] 2021-06-19 2021-06-19 Office [facility]UN[facility] 1.2.840.114 [id number] Univers 11:30:00 12:16:33 Visit Wondiful A HEALTH 350.1.13.10 ity of [facility] 4.2.7.2.686 Ge as ISSAC?BLEA [id number] [place] 044 [facility] OFFICE [facility] 2021-06-19 2021-06-19 Outpatient R GERMAIN [facility] [id number] Univers 11:30:00 12:16:33 WONDIFUL ity o f [facility] 2021-06-19 2021-06-19 Outpatient R GERMAIN [facility] [id number] Univers 11:30:00 11:30:00 WONDIFUL ity o f [facility] 2021-06-19 2021-06-19 Outpatient R GERMAIN [facility] [id number] Univers 11:30:00 11:30:00 WONDIFUL ity o f [facility] 2021-06-12 2021-06-12 Telephone [facility] 1.2.840.114 [id number] [facility] 00:00:00 00:00:00 Wondiful A HEALTH 350.1.13.10 ity of [place] 4.2.7.2.686 Ge as ISSAC?BLEA [phone] [place] 044 [facility] OFFICE [facility] 2021-06-11 2021-06-11 Telephone [facility] 1.2.840.114 [id number] [facility] 00:00:00 00:00:00 Wondiful A HEALTH 350.1.13.10 ity of [place] 4.2.7.2.686 Ge as ISSAC?BLEA [id number] [place] 044 [facility] OFFICE [facility] 2021-06-10 2021-06-10 Cable Puller Lab, Ang - [facility] 1.2.840.1 14 [id number] Univers 12:48:31 13:17:30 Visit Abdirahman Grovesebful A HEALTH 350.1.13.1 0 ity of [place] 4.2.7.2.686 Ge as ISSAC?BLEA [phone] [place] 353 [facility] OFFICE [facility] 2021-06-10 2021-06-10 Outpatient R GERMAIN [facility] [id number] Univers 12:45:00 12:45:00 WONDIFUL ity o f [facility] 2021-06-10 2021-06-10 Outpatient R GERMAIN [facility] [id number] Univers 12:45:00 12:45:00 WONDIFUL ity o f [facility] 2021-05-29 2021-05-29 Telephone [facility]UN[facility] 1.2.840.114 [id number] Univers 00:00:00 00:00:00 Wondiful A HEALTH 350.1.13.10 ity of [place] 4.2.7.2.686 Ge as ISSAC?BLEA [phone] [address] OFFICE [facility] 2021-05-26 2021-05-26 Telephone [facility]UN[facility] 1.2.840.114 [id number] Univers 00:00:00 00:00:00 Wondiful A HEALTH 350.1.13.10 ity of [place] 4.2.7.2.686 Ge as ISSAC?BLEA [phone] [address] 2021-05-21 2021-05-21 Orders Doctor JAMAL 1.2.840.114 [id number] Univers 00:00:00 00:00:00 Only Unassigned, FLAVIA 350.1.13.10 ity of [place] [facility] 4.2.7.2.686 Ge as [phone] [address] 2021-05-20 2021-05-20 Outpatient R TAHIR [facility] [id number] Univers 00:00:00 00:00:00 REBEL ity o f [facility] 2021-05-20 2021-05-20 Telephone Shannon [facility] 1.2.840.114 [id number] Univers 00:00:00 00:00:00 [place] [facility] 350.1.13.10 it y of [place] 4.2.7.2.686 Ge as ISSAC?BLEA [phone] [address] OFFICE [facility] 2021-05-18 2021-05-18 Office [facility] 1.2.840.114 [id number] Univers 15:53:33 16:23:33 Visit Wondiful A HE[facility] 350.1.13.10 ity of [place] 4.2.7.2.686 Ge as ISSAC?BLEA [phone] [address] MEDICAL OFFICE [facility] 2021-05-18 2021-05-18 Outpatient R GERMAIN [facility] [id number] Univers 16:15:00 16:15:00 WONDIFUL ity o f [facility] 2021-05-04 2021-05-04 Outpatient R [facility] [id number] Univers 09:40:00 09:40:00 ity of [facility] 2021-05-04 2021-05-04 Urgent Helga Huber [facility] 1.2.840.114 [id number] Univers 09:03:33 09:23:33 Care Leroy [facility] 350.1.13.10 ity of [place] 4.2.7.2.686 Ge as Issac?Blea [phone] [address] Medical Office [facility] 2021-04-30 2021-04-30 [facility]phone [facility] 1.2.840.114 [id number] Univers 00:00:00 00:00:00 Wondiful [facility] 350.1.13.10 ity of [place] 4.2.7.2.686 Ge as Issac?Blea [phone] [address] Medical Office [facility] 2021-04-29 2021-04-29 Orders Doctor JAMAL 1.2.840.114 [id number] Univers 00:00:00 00:00:00 Only Unassigned, FLAVIA 350.1.13.10 ity of [place] [facility] 4.2.7.2.686 Ge as [phone] [address] 2021-04-24 2021-04-24 [facility]phone [facility] 1.2.840.114 [id number] Univers 00:00:00 00:00:00 Wondiful A Health 350.1.13.10 ity of [place] 4.2.7.2.686 Ge as Issac?Blea [phone] [address] Medical Office Special [facility] 2021-04-20 2021-04-20 [facility] 1.2.840.114 [id number] Univers 00:00:00 00:00:00 [facility] [id number] ity [place] [id number] Ge as Issac?Blea [phone] [place] 044 [place] [facility] 2021-04-17 2021-04-17 Telephone Germain [facility] 1.2.840.114 [id number] Univers 00:00:00 00:00:00 [facility] [id number] ity [place] [id number] Ge as Issac?Blea [phone] [place] 044 [facility] Office [facility] 2021-04-09 2021-04-09 Office [facility] 1.2.840.114 [id number] Univers 14:40:23 15:40:14 Visit [facility] [id number] [facility] [place] [id number] Ge as Issac?Blea [phone] [address] Office [facility] 2021-04-09 2021-04-09 Outpatient R GERMAIN [facility] [id number] Univers 15:15:00 15:15:00 WONDIFUL ity o f [facility] 2021-04-06 2021-04-06 Orders Doctor JAMAL 1.2.840.114 [id number] Univers 00:00:00 00:00:00 Only Unassigned, FLAVIA [id number] ity of [place] [facility] 4.2.7.2.686 Ge as [phone] [address] 2021-03-27 2021-03-27 Cable Puller Lab, Ang - Db [facility] 1.2.840.1 [id number] Univers 13:45:09 14:00:09 Visit [facility] 350.1.13.1 0 ity of [place] [id number] Ge as Issac?Blea [phone] [place] 353 [facility] Office [facility] 2021-03-27 2021-03-27 Office Germain [facility] 1.2.840.114 [id number] Univers 12:51:18 13:45:13 Visit Wondiful A EventMama 350.1.13.10 ity of [place] [id number] Ge as Issac?Blea [phone] [place] [address] [place] [address] Medical Office Building 2021-03-27 2021-03-27 Outpatient R GERMAIN [facility] [id number] Univers 13:15:00 13:15:00 WONDIFUL ity o f [facility] 2021-02-26 2021-02-26 Outpatient R GERMAIN [facility] [id number] Univers 10:00:00 10:00:00 WONDIFUL ity o f [facility] 2021-02-12 2021-02-12 Orders Doctor JAMAL 1.2.840.114 [id number] Univers 00:00:00 00:00:00 Only Unassigned, FLAVIA [id number] ity of [place] [facility] [id number] Ge as [phone] [address] 2021-01-26 2021-01-26 Outpatient R RADIOLOGY [facility] [id number] Univers 00:00:00 00:00:00 ity [facility] 2021-01-14 2021-01-14 Outpatient R ORESTES [facility] [id number] Univers 08:15:00 08:15:00 ALVARO [facility] 2021-01-13 2021-01-13 Outpatient R ORESTES [facility] [id number] Univers 09:00:00 09:00:00 ALVARO [facility] 2021-01-12 2021-01-12 Outpatient R SHANNON [facility] [id number] Univers 10:15:00 10:15:00 CHINO [facility] 2020-11-14 2020-11-14 Emergency X LEIGHANN, [facility] ERT [id number] Univers 08:19:00 11:36:00 LAUREN [facility] 2020-10-22 2020-10-22 Outpatient R CUCO [facility] [id number] Univers 16:00:00 16:00:00 MAURICE [facility] 2020-09-18 2020-09-18 [facility] [id number] Univers 10:15:00 10:15:00 [facility] 2020-09-13 2020-09-13 Outpatient [facility] [id number] Univers 09:30:00 09:30:00 [facility] 2020-09-11 2020-09-11 Outpatient Od[facility] [id number] Univers 09:40:00 09:40:00 [facility] 2020-09-04 2020-09-04 Outpatient Od[facility] [id number] Univers 10:00:00 10:00:00 [facility] 2020-08-20 2020-08-20 Outpatient Raju_P [facility] [id number] [place] 10:38:00 10:38:00 [facility] 2020-08-16 2020-08-16 Outpatient [facility] [id number] Univers 09:40:00 09:40:00 [facility] 2020-08-13 2020-08-13 Outpatient Odilia CARLISLE [facility] [id number] Univers 08:00:00 08:00:00 [facility] 2020-08-12 2020-08-12 Outpatient Odilia CARLISLE [facility] [id number] Univers 10:00:00 10:00:00 [facility] 2020-08-12 2020-08-12 Outpatient Odilia [facility] [id number] Univers 08:00:00 08:00:00 [facility] 2020-08-05 2020-08-05 Outpatient Odilia [facility] [id number] Univers 00:00:00 00:00:00 [facility] 2020-08-04 2020-08-04 Outpatient Odilia [facility] [id number] Univers 14:45:00 14:45:00 [facility] 2020-07-21 2020-07-21 Outpatient Odilia [facility] [id number] Univers 14:00:00 14:00:00 [facility] 2020-07-14 2020-07-14 Outpatient R CUCO [facility] [id number] Univers 15:45:00 15:45:00 MAURICE rojas [facility] 2020-07-02 2020-07-02 Outpatient R CUCO [facility] [id number] Univers 11:45:00 11:45:00 MAURICE rojas [facility] 2020-06-26 2020-06-26 [facility] [id number] Univers 10:15:00 10:15:00 MAURICE rojas [facility] 2020-06-17 2020-06-17 Outpatient R ORESTES [facility] [id number] Univers 08:30:00 08:30:00 ALVARO rojas [facility] 2020-05-02 2020-05-02 Outpatient EL SLE [facility] [id number] [facility] 00:00:00 00:00:00 2020-04-24 2020-04-24 [facility] 1.2.840.114 [id number] 00:00:00 00:00:00 Alvaro Galicia 350.1.13.10 [place] 4.2.7.2.686 Professio [phone] [facility] 220 [facility] 2020-04-21 2020-04-21 Office Robyn [facility] 1.2.840.114 [id number] [facility] 10:54:25 11:24:25 Visit Joanne AMBULATOR 350.1.13.21 College [facility] Y 0.2.7.2.686 of [phone] [facility] lakhwinder 325 e 2020-04-10 2020-04-10 Office Sabiha Duran [facility] 1.2.840.114 [id number] [facility] 12:26:44 13:36:14 Visit AMBULATOR 350.1.13.21 College Y 0.2.7.2.686 of [id number] [facility] lakhwinder 380 e 2020-04-03 2020-04-03 [facility] 1.2.840.114 [id number] 10:03:35 23:59:00 Encounter Maurice Galicia 350.1.13.10 [place] 4.2.7.2.686 [place] [id number] [id number] 2020-04-03 2020-04-03 Outpatient R CUCO [facility] [id number] Univers 00:00:00 00:00:00 MAURICE [facility] 2020-04-03 2020-04-03 Orders Doctor JAMAL 1.2.840.114 [id number] 00:00:00 00:00:00 Only Unassigned, FLAVIA 350.1.13.10 [place] [facility] 4.2.7.2.686 [id number] [id number] 2020-02-27 2020-02-28 Cable Puller Maribeth Chang [facility] 1.2.840.114 [id number] 12:08:39 11:28:44 Visit Lab Main [place] 350.1.13.10 [place] 4.2.7.2.686 [place] [id number] [address] 2020-02-27 2020-02-27 Outpatient R CRUZITO COUGHLIN [facility] [id number] Univers 11:45:00 11:45:00 [facility] 2020-02-27 2020-02-27 Orders Doctor JAMAL 1.2.840.114 [id number] 00:00:00 00:00:00 Only Unassigned, FLAVIA 350.1.13.10 [place] [facility] 4.2.7.2.686 [id number] [id number] 2020-02-11 2020-02-11 [facility] [id number] Univers 15:17:32 23:59:00 [facility] 2020-02-07 2020-02-07 Outpatient R RADIOLOGY [facility] [id number] Univers 00:00:00 00:00:00 ity [facility] 2020-02-06 2020-02-06 Outpatient R [facility] [id number] Univers 09:15:00 09:15:00 [facility] 2020-02-05 2020-02-05 Outpatient R ORESTES [facility] [id number] Univers 10:30:00 10:30:00 ALVARO [facility] 2020-01-24 2020-01-24 Outpatient R [facility] [id number] Univers 00:00:00 00:00:00 LILI [facility] 2020-01-10 2020-01-10 Outpatient R JOANNA [facility] [id number] Univers 10:40:00 10:40:00 TRICIA ity [facility] 2019-12-22 2019-12-22 Outpatient R TAHIR [facility] [id number] Univers 08:15:00 08:15:00 ELIDALUCIANONINA rojas o nam [facility] 2019-12-13 2019-12-13 Outpatient R CUCO [facility] [id number] Univers 15:30:00 15:30:00 MAURICE beatrice [facility] 2019-10-18 2019-10-18 Outpatient R YOAN [facility] [id number] Univers 09:15:00 09:15:00 JUNG rojas keshia nam [facility] 2019-10-16 2019-10-16 [facility] [id number] Univers 10:00:00 10:00:00 JUNG ity keshia nam [facility] 2019-10-02 2019-10-02 Outpatient R ORESTES [facility] [id number] Univers 09:00:00 09:00:00 ALVARO rojas [facility] 2019-09-26 2019-09-26 [facility] [id number] Univers 14:15:00 14:15:00 [facility] 2019-06-14 2019-06-14 [facility] [id number] Univers 07:54:48 23:59:00 [facility] 2019-04-16 2019-04-16 Outpatient R [facility]ONIA [facility] [id number] Univers 13:45:00 14:31:43 LILI [facility] Results Test Description Test Time Test Comments Results Result Comments Source POCT URINALYSIS W/O SPECIFIC GRAVITY 2022-05-28 19:06:00 Test Item Value Reference Range Interpretation Comme nts POCT PH U (test code = 3254) 7 mg/dl 5-8 POCT U LEUK EST (test code = 3263) neg Negative - Negative POCT U NIT (test code = 3262) neg Negative - Negative POCT U PROT (test code = 3259) neg Negative - Negative POCT U GLU (test code = 3256) neg Negative - Negative POCT U KETONE (test code = 3258) neg Negative - Negative POCT U BLD (test code = 3257) neg Negative - Negative [facility]IFIC [id number] 19:06:00 Test Item Value Reference Range Interpretation Comments POCT PH U (test code = 3254) 7 mg/dl 5-8 POCT U LEUK EST (test code = neg Negative - Negative 3263) POCT U NIT (test code = 3262) neg Negative - Negative POCT U PROT (test code = 3259) neg Negative - Negative POCT U GLU (test code = 3256) neg Negative - Negative POCT U KETONE (test code = 3258) neg Negative - Negative POCT U BLD (test code = 3257) neg Negative - [facility] [id number] 09:54:00Surgical Pathology Report Case: [id number] Authorizing Provider: Joanne Carlson, Collected:05/08/2020 12:44 PM Ordering Location: [facility] Received: 05/08/2020 04:22 PM SERVICES Pathologist: Anitha Campbell MD Specimens: A) - Duodenal, random biopsies B) - Biopsy, Gastric, random biopsies C) - Biopsy, Esophagus, random biopsies R/O raghu A. DUODENUM, RANDOM BIOPSY: - DUODENAL MUCOSA WITH PRESERVED VILLOUS ARCHITECTURE - NO SIGNIFICANT HISTOPATHOLOGICAL CHANGE B. GASTRIC, RANDOM BIOPSY: - GASTRIC BODY TYPE MUCOSA WITH PARIETAL CELL HYPERPLASIA - GASTRIC ANTRUM TYPE MUCOSAWITH REACTIVE GASTROPATHY - WARTHIN-STARRY STAIN NEGATIVE FOR H.PYLORI-LIKE ORGANISMS C. ESOPHAGUS, RANDOM BIOPSY: - ESOPHAGEAL SQUAMOUS MUCOSA WITH NO SIGNIFICANT HISTOPATHOLOGICAL CHANGE - NEGATIVE FOR ACUTE INFLAMMATION SJ/pl Signing Pathologist Direct Phone Line: [phone] signed by Anitha Campbell MD on 05/09/2020 at 9:54 AMEndoscopic report reviewed. [id number] x3; [id number] [id number].Received in formalin labeled with "duodenum" is a 0.8 x 0.5 x 0.2 cm aggregate of slaughter-pink tissue. The specimen is submitted in toto in cassette A1.B. Received in formalin labeled with "biopsy gastric"is a 0.5 x 0.5 x 0.2 cm aggregate of slaughter-pink tissue. The specimen is submitted in toto in cassette B 1.C. Received in formalin labeled with "esophagus biopsy" are two fragments of slaughter-pink tissue measuring 0.2 x 0.2 x 0.2 cm each. The specimen is submitted in toto in cassette C1. WA/ewThe interpretation of this case included the use of immunohistochemistry or special stains.Control Slides Examined: In-house known positive controls were evaluated along with the test tissue. These control slides run alongside of the patients sample show appropriate staining. Internal positive and negative controls when available are evaluated Immunohistochemistry technical testing was performed at [facility], Pathology Laboratory where it was developed and its performance characteristics were d etermined. It has not been cleared or approved by the U.S. Food and Drug Administration. The FDA hasdetermined that such clearance or approval is not necessary. The test is used for clinical purposes.It should not be regarded as investigational or for research. This laboratory is certified under theClinical Laboratory Improvement Amendments of 1988 (CLIA-88) as qualified to perform high complexityclinical laboratory testing.POCT-GLUCOSE [id number] 11:45:00 Test Item Value Reference Range Interpretation Comments POC-GLUCOSE METER 111 mg/dL 70-110 H : TESTED A T [employer] 7200 (AQS) (test code [place] E BLDG A, = 1538) [facility] 7703 0: Food Scientist/Techni kris ID = [id number] for Tricia Orellana
[2022-11-03 15:27] LABS: Absolute Lymphocytes (CBC) 1.5 K/uL (0.7-4.9); Hematocrit 33.4 % (36.0-45.0); Lymphocytes % 21.9 % (15.3-44.8); MCV 96.2 fL (80-100); MPV 7.4 fL (7.6-11.3); RBC Red Blood Cell Count 3.47 M/uL (3.86-4.86)
[2022-11-03] MEDS ORDERED: FAMOTIDINE 20 MG/2 ML VIAL IV ONE (15:43)
[2022-11-03 15:49] LABS: Protime INR 0.94
[2022-11-03 15:51] LABS: Albumin 3.1 g/dL (3.4-5.0); Bilirubin Direct 0.2 mg/dL (0-0.2); Bilirubin Total 0.9 mg/dL (0.2-1.0); Magnesium 1.9 mg/dL (1.6-2.4); Potassium 3.7 mEq/L (3.5-5.1); Protein, Total 6.5 g/dL (6.4-8.2); Troponin High Sensitivity 5.9 pg/mL (<58.9)
--- NOTE | 2022-11-03 15:51 | RAD REPORT ---
EXAM DESCRIPTION: Lisa Single View11/03/2022 3:25 pm CLINICAL HISTORY: Chest pain COMPARISON: 2014 FINDINGS: The lungs appear clear of acute infiltrate. The heart is normal size IMPRESSION: No acute abnormalities displayed
[2022-11-03] MEDS ORDERED: MAGNES/ALUMIN/SIMET 30ML UCUP ONE (16:18)
[2022-11-03] MEDS ORDERED: LIDOCAINE VISCOUS 2% SOLN 15 ML UDC ONE (16:19)
--- NOTE | 2022-11-03 16:49 | EDPHYS ---
Physician Documentation [facility] Name: Joyce Hallman Age: 72 yrs Sex: Female : 1950 Arrival Date: 11/03/2022 Time: 14:11 Bed 13 Private MD: ED Physician Evens Thomas HPI: 11/03 14:47 This 72 yrs old Female presents to ER via Ambulatory with complaints of pm1 Breathing Difficulty, High Blood Pressure. 14:47 The patient has shortness of breath that occurred at home, reports occurrence with pm1 eating. Onset: The symptoms/episode began/occurred 4 day(s) ago. The patient's shortness of breath is aggravated by eating. Associated signs and symptoms: Pertinent negatives: chest pain, non-productive cough, productive cough, fever, nausea, vomiting. Severity of symptoms: in the emergency department the symptoms are unchanged. The patient has not recently seen a physician, has an appointment scheduled, GI: Dr Tran for EGD. 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 . 14:47 Patient reports that she has had some episodes of elevated blood pressure readings pm1 systolic 160s that she treated with as needed blood pressure medications, possibly clonidine that improve her blood pressure readings to her baseline. Historical: - Allergies: 14:26 Codeine; ap3 14:26 PENICILLINS; ap3 - PMHx: 14:26 Diabetes - NIDDM; High Cholesterol; Hypertension; Hypothyroidism; ap3 - Immunization history:: Client reports receiving the 2nd dose of the Covid vaccine. - Social history:: Smoking status: Patient denies any tobacco usage or history of. ROS: 14:47 Constitutional: Negative for fever, chills, and weight loss, Cardiovascular: Negative pm1 for chest pain, palpitations, and edema. 14:47 Abdomen/GI: Negative for abdominal pain, nausea, vomiting, diarrhea, and constipation, Back: Negative for injury and pain, MS/Extremity: Negative for injury and deformity, Skin: Negative for injury, rash, and discoloration, Neuro: Negative for headache, weakness, numbness, tingling, and seizure. 14:47 Respiratory: Positive for shortness of breath, Negative for cough, wheezing. 14:47 All other systems are negative. Exam: 14:47 Constitutional: This is a well developed, well nourished patient who is awake, alert, pm1 and in no acute distress. Head/Face: Normocephalic, atraumatic. 14:47 Back: No spinal tenderness. No costovertebral tenderness. Full range of motion. Skin: Warm, dry with normal turgor. Normal color with no rashes, no lesions, and no evidence of cellulitis. MS/ Extremity: Pulses equal, no cyanosis. Neurovascular intact. Full, normal range of motion. 14:47 Eyes: Exam is negative for acute changes, Extraocular movements: no acute changes, Conjunctiva: no acute changes. 14:47 ENT: Exam is negative for acute changes, Mouth: no acute changes. 14:47 Cardiovascular: Exam negative for acute changes, Rate: normal, Rhythm: regular, Pulses: no pulse deficits are appreciated. 14:47 Respiratory: Exam negative for acute changes, respiratory distress, shortness of breath, Breath sounds: are clear throughout. 14:47 Abdomen/GI: Exam negative for acute changes, Palpation: abdomen is soft and non-tender, in all quadrants. 14:47 Neuro: Exam negative for acute changes, Orientation: is normal, Mentation: is normal, Motor: is normal, moves all fours, Gait: is steady, at a normal pace, without difficulty. 15:29 ECG was reviewed by the Attending Physician. pm1 Vital Signs: 14:25 BP 109 / 61; Pulse 81; Resp 17; Temp 97.7; Pulse Ox 100% ; Weight 51.71 kg; Height 5 ap3 ft. 2 in. ; 15:24 BP 126 / 70; Pulse 62; Resp 20 S; Pulse Ox 100% on R/A; kc6 16:26 BP 155 / 61; Pulse 53; Resp 14 S; Pulse Ox 96% on R/A; kc6 14:25 Body Mass Index 20.85 (51.71 kg, 157.48 cm) ap3 MDM: 14:16 Patient medically screened. pm1 14:47 Data reviewed: vital signs. pm1 14:47 Care significantly affected by the following chronic conditions: Diabetes, pm1 Hypertension, Asthma, hyperlipidemia. 14:50 Differential diagnosis: asthma, Myocardial Infarction pneumonia, Pulmonary Embolism pm1 Unstable Angina GERD, Reflux disease. 14:50 Data interpreted: Pulse oximetry: on room air is 100 %. Interpretation: normal. pm1 16:05 ED course: Patient reports improvement in sensation of difficulty breathing with pm1 treatment of Pepcid. Cardiac work-up discussed with patient and no indications of acute abnormal findings. Impression is reflux disease related. Patient is currently taking Nexium and has treatment by Dr. Tran with pending EGD. Will give patient GI cocktail in the ER and will discussed need for further treatment and evaluation by Dr. Tran. 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 11/03 14:46 Order name: Basic Metabolic Panel; Complete Time: 15:58 pm1 11/03 14:46 Order name: CBC with Diff; Complete Time: 15:38 pm1 11/03 14:46 Order name: LFT's; Complete Time: 15:58 pm1 11/03 14:46 Order name: Magnesium; Complete Time: 15:58 pm1 11/03 14:46 Order name: NT PRO-BNP; Complete Time: 15:58 pm1 11/03 14:46 Order name: PT-INR; Complete Time: 15:49 pm1 11/03 14:46 Order name: Troponin HS; Complete Time: 15:58 pm1 11/03 14:46 Order name: XRAY Chest (1 view); Complete Time: 15:58 pm1 11/03 14:46 Order name: EKG; Complete Time: 14:47 pm1 11/03 14:46 Order name: Cardiac monitoring; Complete Time: 15:22 pm1 11/03 14:46 Order name: EKG - Nurse/Tech; Complete Time: 15:22 pm1 11/03 14:46 Order name: IV Saline Lock; Complete Time: 15:22 pm1 11/03 14:46 Order name: Labs collected and sent; Complete Time: 15:22 pm1 11/03 14:46 Order name: O2 Per Protocol; Complete Time: 15:22 pm1 11/03 14:46 Order name: O2 Sat Monitoring; Complete Time: 15:22 pm EC:29 Rate is 65 beats/min. Rhythm is regular, Normal Sinus Rhythm with No ectopy. QRS [place] pm1 is Normal. MD interval is normal. QRS interval is normal. QT interval is normal. No Q waves. T waves are Normal. No ST changes noted. Clinical impression: Normal ECG. Administered Medications: 15:41 Drug: Famotidine IVP 20 mg Route: IVP; Site: left antecubital; kc6 16:10 Follow up: Response: No adverse reaction kc6 16:16 Drug: GI Cocktail without - (Maalox PO Suspension 30 ml, Lidocaine Mucous kc6 Membrane Liquid 2 % 15 ml) Route: PO; 17:02 Follow up: Response: No adverse reaction kc6 Disposition: 17:19 Co-signature as Attending Physician, Evens Thomas MD I reviewed the patient's care rn provided by the Advanced Practice Provider and agree with the diagnosis and treatment plan. Disposition Summary: 11/03/22 16:48 Discharge Ordered Location: Home pm1 Problem: new pm1 Symptoms: have improved pm1 Condition: Stable pm1 Diagnosis - Shortness of breath pm1 - Essential (primary) hypertension pm1 Followup: pm1 - With: Emergency Department - When: As needed - Reason: Worsening of condition Followup: pm1 - With: Private Physician - When: 2 - 3 days - Reason: Recheck today's complaints, Continuance of care, Re-evaluation by your physician Followup: pm1 - With: Esther Tran MD - When: 2 - 3 days - Reason: Recheck today's complaints, Continuance of care, Re-evaluation by your physician Discharge Instructions: - Discharge Summary Sheet pm1 - Gastroesophageal Reflux Disease, Adult pm1 - Hypertension, Adult pm1 - Shortness of Breath, Adult pm1 - How to Take Your Blood Pressure, [id number]-os-Sgvy pm1 - DASH Eating Plan pm1 - Managing Your Hypertension pm1 - Food Choices for Gastroesophageal Reflux Disease, Adult, [id number] pm1 Forms: - Medication Reconciliation Form pm1 - Thank You Letter pm1 - Antibiotic Education pm1 - Prescription Opioid Use pm1 Signatures: Dispatcher [employer] EDMS Evens Thomas MD MD rn Marinas, Patrick, NP INSULATING MACHINE OPERATOR pm1 Helga Pedraza RN RN ap3 Latia Villasenor RN RN kc6
--- NOTE | 2022-11-03 16:49 | ER ---
Nurse's Notes [facility] Name: Joyce Hallman Age: 72 yrs Sex: Female : 1950 Arrival Date: 11/03/2022 Time: 14:11 Bed 13 Private MD: Diagnosis: Shortness of breath;Essential (primary) hypertension Presentation: 11/03 14:25 Chief complaint: Patient states: she feels like after she eats, she can't breath. Her ap3 PCP informed her to come to the ER for further evaluation. Coronavirus screen: At this time, the client does not indicate any symptoms associated with coronavirus-19. Ebola Screen: No symptoms or risks identified at this time. Initial Sepsis Screen: Does the patient meet any 2 criteria? No. Patient's initial sepsis screen is negative. Does the patient have a suspected source of infection? No. Patient's initial sepsis screen is negative. Risk Assessment: Do you want to hurt yourself or someone else? Patient reports no desire to harm self or others. Onset of symptoms was October 30, 2022. 14:25 Method Of Arrival: Ambulatory ap3 14:43 Acuity: FELICIANO 3 ap3 Triage Assessment: 14:27 General: Appears in no apparent distress. Behavior is calm, cooperative, appropriate ap3 for age. Pain: Denies pain. Neuro: Level of Consciousness is awake, alert, obeys commands, Oriented to person, place, time, situation. Cardiovascular: Patient's skin is warm and dry. Respiratory: Reports shortness of breath after she eats Airway is patent Respiratory effort is even, unlabored, Respiratory pattern is regular, symmetrical, Onset: The symptoms/episode began/occurred after meals, the patient reports symptoms have resolved. Historical: - Allergies: 14:26 Codeine; ap3 14:26 PENICILLINS; ap3 - PMHx: 14:26 Diabetes - NIDDM; High Cholesterol; Hypertension; Hypothyroidism; ap3 - Immunization history:: Client reports receiving the 2nd dose of the Covid vaccine. - Social history:: Smoking status: Patient denies any tobacco usage or history of. Screenin:28 [facility] ED Fall Risk Assessment (Adult) History of falling in the last 3 months, ap3 including since admission No falls in past 3 months (0 pts). Abuse screen: Denies threats or abuse. Nutritional screening: No deficits noted. Tuberculosis screening: No symptoms or risk factors identified. Assessment: 15:23 General: Appears in no apparent distress. comfortable, Behavior is calm, cooperative, kc6 appropriate for age. Pain: Denies pain. Neuro: [place]orga Agitation-Sedation Scale (RASS): 0 - Alert and Calm Level of Consciousness is awake, alert, obeys commands, Oriented to person, place, time, situation, Appropriate for age. Cardiovascular: Heart tones S1 S2 present Capillary refill < 3 seconds Rhythm is sinus rhythm. Respiratory: Reports shortness of breath Airway is patent Trachea midline Respiratory effort is even, unlabored, Respiratory pattern is regular, symmetrical, Breath sounds are clear bilaterally. GI: No signs and/or symptoms were reported involving the gastrointestinal system. : No signs and/or symptoms were reported regarding the genitourinary system. EENT: No signs and/or symptoms were reported regarding the EENT system. Derm: No signs and/or symptoms reported regarding the dermatologic system. Skin is intact, Skin is pink, warm \T\ dry. Musculoskeletal: No signs and/or symptoms reported regarding the musculoskeletal system. Circulation, motion, and sensation intact. Capillary refill < 3 seconds, Range of motion: intact in all extremities. 16:23 Reassessment: Patient appears in no apparent distress at this time. No changes from kc6 previously documented assessment. Patient and/or family updated on plan of care and expected duration. Pain level reassessed. Patient is alert, oriented x 3, equal unlabored respirations, skin warm/dry/pink. Vital Signs: 14:25 BP 109 / 61; Pulse 81; Resp 17; Temp 97.7; Pulse Ox 100% ; Weight 51.71 kg; Height 5 ap3 ft. 2 in. ; 15:24 BP 126 / 70; Pulse 62; Resp 20 S; Pulse Ox 100% on R/A; kc6 16:26 BP 155 / 61; Pulse 53; Resp 14 S; Pulse Ox 96% on R/A; kc6 14:25 Body Mass Index 20.85 (51.71 kg, 157.48 cm) ap3 ED Course: 14:14 Patient arrived in ED. rg4 14:15 Nick Jacobs NP is PHCP. pm1 14:15 Evens Thomas MD is Attending Physician. pm1 14:26 Triage completed. ap3 14:27 Arm band placed on right wrist. ap3 15:21 Latia Villasenor, RN is Primary Nurse. kc6 15:22 Basic Metabolic Panel Sent. bc6 15:22 CBC with Diff Sent. bc6 15:22 LFT's Sent. bc6 15:22 Magnesium Sent. bc6 15:22 NT PRO-BNP Sent. bc6 15:22 PT-INR Sent. bc6 15:22 Troponin HS Sent. bc6 15:22 Inserted saline lock: 20 gauge in left antecubital area, using aseptic technique. bc6 15:23 Patient has correct armband on for positive identification. Bed in low position. Call kc6 light in reach. Side rails up X2. Adult w/ patient. 15:26 XRAY Chest (1 view) In Process Unspecified. EDMS 16:49 Esther Tran MD is Referral Physician. pm1 16:59 No provider procedures requiring assistance completed. IV discontinued, intact, kc6 bleeding controlled, No redness/swelling at site. Pressure dressing applied. Administered Medications: 15:41 Drug: Famotidine IVP 20 mg Route: IVP; Site: left antecubital; kc6 16:10 Follow up: Response: No adverse reaction kc6 16:16 Drug: GI Cocktail without - (Maalox PO Suspension 30 ml, Lidocaine Mucous kc6 Membrane Liquid 2 % 15 ml) Route: PO; 17:02 Follow up: Response: No adverse reaction kc6 Medication: 17:00 VIS not applicable for this client. kc6 Outcome: 16:48 Discharge ordered by MD. pm1 16:59 Discharged to home ambulatory, with significant other. kc6 16:59 Condition: stable 16:59 Discharge instructions given to patient, Instructed on discharge instructions, follow up and referral plans. Demonstrated understanding of instructions, follow-up care. 17:02 Patient left the ED. kc6 Signatures: Dispatcher [employer] EDMS Nick Jacobs, DEBI ANESTHESIOLOGIST AND CRITICAL CARE pm1 Niharika Moya4 Helga Pedraza RN RN ap3 Latia Villasenor, RORY RN kc6 Monica Wong 6 Corrections: (The following items were deleted from the chart) 14:43 14:25 Acuity: FELICIANO 4 ap3 ap3
[2022-11-03 17:12] VITALS: TEMP 97.7
[2022-11-03 17:23] VITALS: BP 155/61; O2SAT 96
--- NOTE | 2022-11-05 07:05 | EKG ---
Test Date: 2022-11-03 Test Time: 15:18:22 [employer] Inserter: TROY MEASUREMENT RESULTS: Intervals: Rate: 65 NV: 166 QRSD: 62 QT: 402 QTc: 418 Mercer: P: 34 NV: 166 QRS: 9 T: 25 INTERPRETIVE STATEMENTS: Normal sinus rhythm Normal ECG Compared to ECG 07/06/2015 11:23:08 No significant changes Electronically Signed On 11-05-22 07:00:25 CDT by Adin Sparks
== END 2022-11-03 17:02 | disposition home or self-care (01) ==
LOC: ER 14:11
DX: R06.02 Shortness of breath (principal); I10 Essential (primary) hypertension; E11.9 Type 2 diabetes mellitus without complications; Z88.0 Allergy status to penicillin; Z88.5 Allergy status to narcotic agent
CPT/HCPCS: 36415; 71045; 80048; 80076; 83735; 83880; 84484; 85025; 85610; 93005; 96374; 99284

== ENCOUNTER 2023-01-16 08:42 | Emergency (ER) | payer MEDICARE ==
--- OUTSIDE RECORDS SUMMARY | 2023-01-16 08:49 | XMS REPORT | Continuity of Care Document ---
:1950 Author Organization [facility] t Address [address] [facility] [place] [address] Care Team Providers Name Role Phone Aris Ward MD, Leo Payne Primary Care Physician [phone] MAURICE NORWOOD Attending Clinician Unavailable JOANNE CARLSON Attending Clinician Unavailable Mayo BRADSHAW, Helga Attending Clinician ALVARO CARLISLE Attending Clinician Unavailable Rashaad BRADSHAW, Baltazar Attending Clinician Alvaro Carlisle MD Attending Clinician Nurse, [facility] Attending Clinician Unavailable Unknown, Attending Attending Clinician Unavailable Austin Ramon Attending Clinician AUSTIN DUGAN Attending Clinician Unavailable JYOTHI KOWALSKI Attending Clinician Unavailable Radiology Attending Clinician Unavailable RADIOLOGY Attending Clinician Unavailable Dxe TOY DESIGNER, Jyothi Attending Clinician Doctor Unassigned, [place] Attending Clinician Unavailable Lab, Ang - Db Attending Clinician Unavailable 2, [facility] Attending Clinician Unavailable JB GODFREY Attending Clinician Unavailable ROSIBEL STALLINGS Attending Clinician Unavailable Rosibel Buchanan Attending Clinician ISAAC GUNTER Attending Clinician Unavailable Isaac Gunter MD Attending Clinician , [facility] Surg Spec Procedure Attending Clinician Unavailable BERNICE SMITH Attending Clinician Unavailable EbraBernice Cuevas Attending Clinician Nikkie Muse MD Attending Clinician GRAMM LYNDSEY A Attending Clinician Unavailable Gramm TOY DESIGNER, Lyndsey Lois Attending Clinician IVANA SHAFFER Attending Clinician Unavailable Ivana Shaffer PA-C Attending Clinician SPENCER GROVES Attending Clinician Unavailable Spencer Groves MD Attending Clinician HELGA HUBER Attending Clinician Unavailable Oliver STERLING, Leroy Attending Clinician LEROY BOYD Attending Clinician Unavailable JEFF CHILD Attending Clinician Unavailable Jeff Child DO Attending Clinician Ha LUNAP, Santhosh Attending Clinician SANTHOSH BROOKS Attending Clinician Unavailable ANTHONY BARRIENTOS Attending Clinician Unavailable Vaccine, Ang Db Cbc Fam Attending Clinician Unavailable Anthony Barrientos MD Attending Clinician REBEL HARO Attending Clinician Unavailable Chino Ortega MD Attending Clinician CHINO ORTEGA Attending Clinician Unavailable LAUREN LAWTON Attending Clinician Unavailable NIKO GUZMAN Attending Clinician Unavailable Rajnorma_Raf Attending Clinician Unavailable Maurice Norwood MD Attending Clinician Pob, Adc [...] Number Effective Date Expiration Date Cristal burks [facility] [id number] 2019 MEDICARE ADVANTAGE 00:00:00 [facility] [id number] [facility] [id number] 2019 00:00:00 Problems Condition Condition Condition Status Onset Resolution Last Treating Co mments Source Name Details Category Date Date Treatment Clinician Date Neuropathy Neuropathy Disease Active U nivers 4-12 ity of 00:00: Medical Branch Pruritus Pruritus Disease Active 2020-07 Unive rs 0-10 ity of 00:00: [facility] Branch Vitamin D Vitamin D Disease Active 2020-07 Uni vers deficiency deficiency 0-10 it y of 00:00: Medical Branch Statin Statin Disease Active Univers intoleranc intoleranc 9-19 it y of e e 00:00: Medical Branch Adverse Adverse Disease Active Univers effect of effect of 9 ity of fibric fibric 00:00: [place] acid and acid and 00 Medica l fibric fibric Branch acid acid derivative derivative Gastritis Gastritis Disease Active Uni vers 8-19 ity of 00:00: Medical Branch Nontraumat Nontraumat Disease Active Overview : Univers ic ic 8-04 Formattin ity of incomplete incomplete 00:00: g of this [place] tear of tear of 00 note Medical left left might be Branch rotator rotator different cuff cuff from the original. 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 0-30 it y of steremia steremia 00:00: [place] 00 Medical Branch Chronic Chronic Disease Active Univers diastolic diastolic 8-19 ity of heart heart 00:00: [place] failure failure 00 Medical Branch Primary Primary Disease Active Univers hypothyroi hypothyroi 2-18 it y of dism dism 00:00: [place] [facility] HLD HLD Disease Active Univers (hyperlipi (hyperlipi 2-18 it y of demia) demia) 00:00: [place] 00 Medical Branch Type 2 Type 2 Disease Active Univers diabetes diabetes 2-15 ity of mellitus mellitus 00:00: [place] without without 00 Medical complicati complicati Br anch on on Essential Essential Disease Active Uni vers hypertensi hypertensi 1-27 it y of on on 00:00: [place] [facility] Dyslipidem Dyslipidem Disease Active U nivers ia ia 1-27 ity of 00:00: [place] 00 Medical Branch Allergies, Adverse Reactions, Alerts Allergy Allergy Status Severity Reaction(s) Onset Inactive Treating Comm ents Source Name Type Date Date Clinician CETIRIZI DRUG Active Swelling 2020-07 Univer s NE INGREDI 1-08 ity of 00:00: [place] 00 Medical Branch TRIAMCIN DRUG Active Other-Cmnt [...] Medical s Branch FENOFIBR DRUG Active Other-Cmnt 2020-0 Univ ers ATE INGREDI 9-17 ity of [...] DRUG Active ITCHING 2020-0 Univers AC INGREDI 8- ity of 00:00: [place] 00 Medical Branch GABAPENT DRUG Active ITCHING 2020-0 Univers IN INGREDI 8-19 ity of 00:00: [place] 00 Medical Branch METRONID DRUG Active ITCHING 2020-0 Univers AZOLE INGREDI 8-19 ity of 00:00: [place] 00 Medical Branch CODEINE Allergy Active Med [facility] 2019[facility] PENICILL Allergy Active Med Itching 2019[facility] Codeine Drug Active Itching, [facility]- [facility] Rash [facility] Penicill Drug Active Itching, 2019- [facility] Center Penicill Drug Active Itching, 2019- [facility] Center Hydrocod Propensi Active Swelling 2019- Univ ers one ty to 0-12 ity of adverse 00:00: [place] reaction 00 Medical s Branch Meloxica Propensi Active Swelling 2019- Causes Univ ers m ty to 0-12 headache ity of adverse 00:00: and [place] reaction 00 itchiness Medic al s Branch Naproxen Propensi Active Other - See 2019- Causes U nivers ty to comments 0-12 severe ity of adverse 00:00: headache [place] reaction 00 and Medical s itchiness Branch HYDROCOD DRUG Active ITCHING 2019- Univers ONE INGREDI 0-12 ity of 00:00: [place] 00 Medical Branch MELOXICA DRUG Active ITCHING 2019-07 Univers M INGREDI 0-12 ity of 00:00: [place] 00 Medical Branch NAPROXEN DRUG Active ITCHING 2019- Univers INGREDI 0-12 ity of 00:00: [place] [...] Medical s Branch PRAVASTA DRUG Active Other-Cmnt 2018 Univ ers TIN INGREDI 0-17 ity of 00:00: [place] 00 Medical Branch Lisinopr Propensi Active Cough 2018-0 Univer s il ty to 5-03 ity of adverse 00:00: [place] reaction 00 Medical s Branch LISINOPR DRUG Active COUGH 2018-0 Univers IL INGREDI 5-03 ity of 00:00: [place] 00 Medical Branch Tramadol Propensi Active Shortness of 2017-0 Univers ty to Breath 6-23 ity of adverse 00:00: [place] reaction 00 Medical s Branch TRAMADOL DRUG Active Hives 2017-0 Univers INGREDI 6-23 ity of 00:00: [place] 00 Medical Branch Atorvast Propensi Active Other - See 2017-0 Swelling Univers atin ty to comments 2-13 ity of Calcium adverse 00:00: [place] reaction 00 Medical s Branch ATORVAST DRUG Active Other-Cmnt 2017-0 Univ ers ATIN INGREDI 2-13 ity of [...] Source Exposure to 2022-05-18 2022-05-28 Not sure [facility]-CoV-2 00:00:00 12:45:00 [facility] (event) [place] Tobacco use and 2022-05-07 2022-05-07 Smokeless tobacco Un iversity of exposure 00:00:00 00:00:00 non-user [facility] Alcohol intake 2020-05-08 2020-05-08 [facility]00 of alcohol [facility] (finding) Sex [birth year] At [birth year] CLAY Pineda kes 00:00:00 00:00:00 [facility] Smoking Status Start Date Stop Date Source Never smoked tobacco [facility] Medications Ordered Filled Start Stop Current Ordering Indication Dosage Frequency Signature Comments Components Source Medication Medication Date Date Medication? Clinician (SIG) [facility] [place] [facility]07 Yes [id number] 20mg Take 1 Univers n 20 mg 2-08 tablet by ity of tablet 00:00: mouth at [place] 00 [facility]. [facility] [place] [facility]-07 Yes [id number] 20mg Take 1 Univers n 20 mg 2-08 tablet by ity of tablet 00:00: mouth at [place] 00 [facility]. [facility] [place] 2021-07 Yes [id number] 20mg Take 1 Univers n 20 mg 2-08 tablet by ity of tablet 00:00: mouth at [place] [address] bedtime. [facility] 2021-07 Yes [id number] 1{capsu Take 1 U nivers Blue-Sod 1-18 le} capsule by ity o f Phos-PhSal- 00:00: mouth 2 Ge as Hyo 00 (two) Medical (URIBEL) times Branch 118-10-40.8 daily as -36 mg needed for capsule Other (bladder spasms). [facility] 2021-07 Yes [id number] 1{capsu Take 1 U nivers Blue-Sod 1-18 le} capsule by ity o f Phos-PhSal- 00:00: mouth 2 [place] as [place] 00 (two) Medical (URIBEL) times Branch 118-10-40.8 daily as -36 mg needed for capsule Other (bladder spasms). [facility] 2021-07 Yes [id number] 1{capsu Take 1 U nivers Blue-Sod 1-18 le} capsule by ity o f Phos-PhSal- 00:00: mouth 2 [place] as [place] 00 (two) Medical (URIBEL) times Branch 118-10-40.8 daily as -36 mg needed for capsule Other (bladder spasms). [facility] 2021-07 Yes [id number] 1{capsu Take 1 U nivers Blue-Sod 1-18 le} capsule by ity o f Phos-PhSal- 00:00: mouth 2 [place] 00 (two) Medical (URIBEL) times Branch 118-10-40.8 daily as -36 mg needed for capsule Other (bladder spasms). [facility] 2021-07 Yes [id number] 1{capsu Take 1 U nivers Blue-Sod 1-18 le} capsule by ity o f Phos-PhSal- 00:00: mouth 2 [place] 00 (two) Medical (URIBEL) times Branch 118-10-40.8 daily as -36 mg needed for capsule Other (bladder spasms). pregabalin 2022-0 Yes [id number] 25mg Take 1 Univers 25 mg 9-14 capsule by ity of capsule 00:00: mouth (two) Medical times Branch daily. pregabalin 2022-0 Yes [id number] 25mg Take 1 Univers 25 mg 9-14 capsule by ity of capsule 00:00: mouth 2 (two) Medical times Branch daily. pregabalin 2022-0 Yes [id number] 25mg Take 1 Univers 25 mg 9-14 capsule by ity of capsule 00:00: mouth 2 (two) Medical times Branch daily. pregabalin 2022-0 Yes [id number] 25mg Take 1 Univers 25 mg 9-14 capsule by ity of capsule 00:00: mouth 2 (two) Medical times Branch daily. pregabalin 2022-0 Yes [id number] 25mg Take 1 Univers 25 mg 9-14 capsule by ity of capsule 00:00: mouth 2 (two) Medical times Branch daily. pregabalin 2022-0 Yes [id number] 25mg Take 1 Univers 25 mg 9-14 capsule by ity of capsule 00:00: mouth 2 (two) Medical times [place] daily. pregabalin 2021-0 Yes [id number] 25mg Take 1 Univers 25 mg 9-14 capsule by ity of capsule 00:00: mouth 2 (two) Medical times [place] daily. SYNTHROID 2021-0 Yes [id number] 25ug Take 1 Un marianne 25 mcg 7-25 tablet by ity of tablet 00:00: mouth [place] 00 every Medical morning. Branch Brand name only SYNTHROID 2021-0 Yes [id number] 25ug Take 1 Un marianne 25 mcg 7-25 tablet by ity of tablet 00:00: mouth [place] 00 every Medical morning. Branch Brand name only SYNTHROID 2021-0 Yes [id number] 25ug Take 1 Un marianne 25 mcg 7-25 tablet by ity of tablet 00:00: mouth [place] 00 every Medical morning. Branch Brand name only SYNTHROID 2021-0 Yes [id number] 25ug Take 1 Un marianne 25 mcg 7-25 tablet by ity of tablet 00:00: mouth [place] 00 every Medical morning. Branch Brand name only SYNTHROID 2021-0 Yes [id number] 25ug Take 1 Un marianne 25 mcg 7-25 tablet by ity of tablet 00:00: mouth [place] 00 every Medical morning. Branch Brand name only SYNTHROID 2021-0 Yes [id number] 25ug Take 1 Un marianne 25 mcg 7-25 tablet by ity of tablet 00:00: mouth [place] 00 every Medical morning. Branch Brand name only SYNTHROID 2021-0 Yes [id number] 25ug Take 1 Un marianne 25 mcg 7-25 tablet by ity of tablet 00:00: mouth [place] 00 every Medical morning. Branch Brand name only ezetimibe 2021-0 Yes [id number] 10mg Take 1 Un marianne 10 mg 7-23 tablet by ity of tablet 00:00: mouth [place] 00 daily. Medical Branch ezetimibe 2021-0 Yes [id number] 10mg Take 1 Un marianne 10 mg 7-23 tablet by ity of tablet 00:00: mouth [place] 00 daily. Medical Branch ezetimibe 2021-0 Yes [id number] 10mg Take 1 Un marianne 10 mg 7-23 tablet by ity of tablet 00:00: mouth [place] 00 daily. Medical Branch ezetimibe 2021-0 Yes [id number] 10mg Take 1 Un marianne 10 mg 7-23 tablet by ity of tablet 00:00: mouth [place] 00 daily. Medical Branch ezetimibe Yes [id number] 10mg Take 1 Un marianne 10 mg 7-23 tablet by ity of tablet 00:00: mouth [place] 00 daily. [facility] ezetimibe 2021- No [id number] 10mg Take 1 U nivers 10 mg 7-23 12-08 tablet by ity of tablet 00:00: 00:00 mouth [place] 00 :00 daily. Medical Branch [facility] Yes [id number] 1{capsu Take 1 U nivers Blue-Sod 7-15 le} capsule by ity o f Phos-PhSal- 00:00: mouth 2 [place] 00 (two) Medical (URIBEL) times Branch 118-10-40.8 daily as -36 mg needed for capsule Other (bladder spasms). [facility] Yes [id number] 1{capsu Take 1 U nivers Blue-Sod 7-15 le} capsule by ity o f Phos-PhSal- 00:00: mouth 2 [place] 00 (two) Medical (URIBEL) times Branch 118-10-40.8 daily as -36 mg needed for capsule Other (bladder spasms). [facility] Yes [id number] 1{capsu Take 1 U nivers Blue-Sod 7-15 le} capsule by ity o f Phos-PhSal- 00:00: mouth 2 [place] 00 (two) Medical (URIBEL) times Branch 118-10-40.8 daily as -36 mg needed for capsule Other (bladder spasms). [facility] Yes [id number] 1{capsu Take 1 U nivers Blue-Sod 7-15 le} capsule by ity o f Phos-PhSal- 00:00: mouth 2 [place] 00 (two) Medical (URIBEL) times Branch 118-10-40.8 daily as -36 mg needed for capsule Other (bladder spasms). [facility] Yes [id number] 1{capsu Take 1 U nivers Blue-Sod 7-15 le} capsule by ity o f Phos-PhSal- 00:00: mouth 2 [place] 00 (two) Medical (URIBEL) times Branch 118-10-40.8 daily as -36 mg needed for capsule Other (bladder spasms). [facility] Yes [id number] 1{capsu Take 1 U nivers Blue-Sod 7-15 le} capsule by ity o f Phos-PhSal- 00:00: mouth 2 [place] 00 (two) Medical (URIBEL) times Branch 118-10-40.8 daily as -36 mg needed for capsule Other (bladder spasms). [facility] Yes [id number] 1{capsu Take 1 U nivers Blue-Sod 7-15 le} capsule by ity o f Phos-PhSal- 00:00: mouth 2 [place] 00 (two) Medical (URIBEL) times Branch 118-10-40.8 daily as -36 mg needed for capsule Other (bladder spasms). [facility] Yes [id number] 1{capsu Take 1 U nivers Blue-Sod 7-15 le} capsule by ity o f Phos-PhSal- 00:00: mouth 2 [place] 00 (two) Medical (URIBEL) times Branch 118-10-40.8 daily as -36 mg needed for capsule Other (bladder spasms). albuterol Yes [id number] 2.5mg Inhale 3 Univers 2.5 mg /3 2-14 mL every 4 ity of mL (0.083 00:00: (four) [place] %) 00 hours as Medical nebulizer needed for Bran ch solution Wheezing. famotidine 0 Yes [id number] 40mg Take 1 U nivers 40 mg 2-14 tablet by ity of tablet 00:00: mouth 2 [place] 00 (two) Medical times Branch daily. albuterol 2021-0 Yes [id number] 2.5mg Inhale 3 Univers 2.5 mg /3 2-14 mL every 4 ity of mL (0.083 00:00: (four) [place] %) 00 hours as Medical nebulizer needed for Bran ch solution Wheezing. famotidine 2021-0 Yes [id number] 40mg Take 1 U nivers 40 mg 2-14 tablet by ity of tablet 00:00: mouth (two) Medical times Branch daily. albuterol 2022-0 Yes [id number] 2.5mg Inhale 3 Univers 2.5 mg /3 2-14 mL every 4 ity of mL (0.083 00:00: (four) [place] %) 00 hours as Medical nebulizer needed for Bran ch solution Wheezing. famotidine 2022-0 Yes [id number] 40mg Take 1 U nivers 40 mg 2-14 tablet by ity of tablet 00:00: mouth ([facility]) Medical times Branch daily. albuterol 2022-0 Yes [id number] 2.5mg Inhale 3 Univers 2.5 mg /3 2-14 mL every 4 ity of mL (0.083 00:00: (four) [place] %) 00 hours as Medical nebulizer needed for Bran ch solution Wheezing. famotidine 2022-0 Yes [id number] 40mg Take 1 U nivers 40 mg 2-14 tablet by ity of tablet 00:00: mouth ([facility]) Medical times Branch daily. albuterol 2022-0 Yes [id number] 2.5mg Inhale 3 Univers 2.5 mg /3 2-14 mL every 4 ity of mL (0.083 00:00: (four) [place] %) 00 hours as Medical nebulizer needed for Bran ch solution Wheezing. famotidine 2022-0 Yes [id number] 40mg Take 1 U nivers 40 mg 2-14 tablet by ity of tablet 00:00: mouth (two) Medical times Branch daily. albuterol 2022-0 Yes [id number] 2.5mg Inhale 3 Univers 2.5 mg /3 2-14 mL every 4 ity of mL (0.083 00:00: (four) [place] %) 00 hours as Medical nebulizer needed for Bran ch solution Wheezing. famotidine 2022-0 Yes [id number] 40mg Take 1 U nivers 40 mg 2-14 tablet by ity of tablet 00:00: mouth (two) Medical times Branch daily. albuterol 2022-0 Yes [id number] 2.5mg Inhale 3 Univers 2.5 mg /3 2-14 mL every 4 ity of mL (0.083 00:00: (four) [place] %) 00 hours as Medical nebulizer needed for Bran ch solution Wheezing. famotidine 2021-0 Yes [id number] 40mg Take 1 U nivers 40 mg 2-14 tablet by ity of tablet 00:00: mouth 2 [place] 00 (two) Medical times Branch daily. albuterol 2021-0 Yes [id number] 2.5mg Inhale 3 Univers 2.5 mg /3 2-14 mL every 4 ity of mL (0.083 00:00: (four) [place] %) 00 hours as Medical nebulizer needed for Bran ch solution Wheezing. famotidine 2021-0 Yes [id number] 40mg Take 1 U nivers 40 mg 2-14 tablet by ity of tablet 00:00: mouth 2 [place] 00 (two) Medical times [place] daily. candesartan 0 Yes 32mg Take 32 mg Univers 32 mg 1-28 by mouth ity of tablet 14:56: daily. [address] candesartan 0 Yes 32mg Take 32 mg Univers 32 mg 1-28 by mouth ity of tablet 14:56: daily. [address] candesartan 0 Yes 32mg Take 32 mg Univers 32 mg 1-28 by mouth ity of tablet 14:56: daily. [address] candesartan 0 Yes 32mg Take 32 mg Univers 32 mg 1-28 by mouth ity of tablet 14:56: daily. [address] candesartan 0 Yes 32mg Take 32 mg Univers 32 mg 1-28 by mouth ity of tablet 14:56: daily. [address] candesartan 0 Yes 32mg Take 32 mg Univers 32 mg 1-28 by mouth ity of tablet 14:56: daily. [address] candesartan 0 Yes 32mg Take 32 mg Univers 32 mg 1-28 by mouth ity of tablet 14:56: daily. [address] candesartan 0 Yes 32mg Take 32 mg Univers 32 mg 1-28 by mouth ity of tablet 14:56: daily. [address] cloNIDine 0 Yes .1mg Take 0.1 Univ ers 0.1 mg 1-28 mg by ity of tablet 14:48: mouth at [place] 53 bedtime. [facility] cloNIDine 2021-0 Yes .1mg Take 0.1 Univ ers 0.1 mg 1-28 mg by ity of tablet 14:48: mouth at [place] [address] bedtime. Medical Branch cloNIDine 2021-0 Yes .1mg Take 0.1 Univ ers 0.1 mg 1-28 mg by ity of tablet 14:48: mouth at [place] 53 bedtime. Medical Branch cloNIDine 2021-0 Yes .1mg Take 0.1 Univ ers 0.1 mg 1-28 mg by ity of tablet 14:48: mouth at [place] [address] bedtime. Medical Branch cloNIDine 2021-0 Yes .1mg Take 0.1 Univ ers 0.1 mg 1-28 mg by ity of tablet 14:48: mouth at [place] [address] bedtime. Medical Branch cloNIDine 2021-0 Yes .1mg Take 0.1 Univ ers 0.1 mg 1-28 mg by ity of tablet 14:48: mouth at [place] [address] bedtime. Medical Branch cloNIDine 2021-0 Yes .1mg Take 0.1 Univ ers 0.1 mg 1-28 mg by ity of tablet 14:48: mouth at [place] [address] bedtime. Medical Branch cloNIDine 2021-0 Yes .1mg Take 0.1 Univ ers 0.1 mg 1-28 mg by ity of tablet 14:48: mouth at [place] [address] bedtime. Medical Branch Cholecalcif 2020-07 Yes [id number] Take 1 Univers kavon, 2-10 capsule by ity of Vitamin D3, 00:00: mouth [place] 1,250 mcg 00 every 14 Medica l (50,000 (fourteen) Branch unit) days. capsule Cholecalcif 2020-07 Yes [id number] Take 1 Univers kavon, 2-10 capsule by ity of Vitamin D3, 00:00: mouth [place] 1,250 mcg 00 every 14 Medica l (50,000 (fourteen) Branch unit) days. capsule Cholecalcif 2020-07 Yes [id number] Take 1 Univers kavon, 2-10 capsule by ity of Vitamin D3, 00:00: mouth [place] 1,250 mcg 00 every 14 Medica l (50,000 (fourteen) Branch unit) days. capsule Cholecalcif 2020-07 Yes [id number] Take 1 Univers kavon, 2-10 capsule by ity of Vitamin D3, 00:00: mouth [place] 1,250 mcg 00 every 14 Medica l (50,000 (fourteen) Branch unit) days. capsule Cholecalcif 2020-07 Yes [id number] Take 1 Univers kavon, 2-10 capsule by ity of Vitamin D3, 00:00: mouth [place] 1,250 mcg 00 every 14 Medica l (50,000 (fourteen) Branch unit) days. capsule Cholecalcif 2020-07 Yes [id number] Take 1 Univers kavon, 2-10 capsule by ity of Vitamin D3, 00:00: mouth [place] 1,250 mcg 00 every 14 Medica l (50,000 (fourteen) Branch unit) days. capsule Cholecalcif 2020-07 Yes [id number] Take 1 Univers kavon, 2-10 capsule by ity of Vitamin D3, 00:00: mouth [place] 1,250 mcg 00 every 14 Medica l (50,000 (fourteen) Branch unit) days. capsule Cholecalcif 2020-07 Yes [id number] Take 1 Univers kavon, 2-10 capsule by ity of Vitamin D3, 00:00: mouth [place] 1,250 mcg 00 every 14 Medica l (50,000 (fourteen) Branch unit) days. capsule Lancets 2020-07 Yes [id number] Check Univ ers Misc 0-11 sugars 3 ity of 00:00: times a [place] 00 day. Dx Medical Code Branch E11.9. Brand per insurance. Lancets 2020-07 Yes [id number] Check Univ ers Misc 0-11 sugars 3 ity of 00:00: times a [place] 00 day. Dx Medical Code Branch E11.9. Brand per insurance. Lancets 2020-07 Yes [id number] Check Univ ers Misc 0-11 sugars 3 ity of 00:00: times a [place] 00 day. Dx Medical Code Branch E11.9. Brand per insurance. Lancets 2020-07 Yes [id number] Check Univ ers Misc 0-11 sugars 3 ity of 00:00: times a [place] 00 day. Dx Medical Code Branch E11.9. Brand per insurance. Lancets 2020-07 Yes [id number] Check Univ ers Misc 0-11 sugars 3 ity of 00:00: times a [place] 00 day. Dx Medical Code Branch E11.9. Brand per insurance. Lancets 2020-07 Yes [id number] Check Univ ers Misc 0-11 sugars 3 ity of 00:00: times a day. Dx Medical Code Branch E11.9. Brand per insurance. Lancets 2020-07 Yes [id number] Check [place] [facility] ers Misc 0-11 sugars 3 ity of 00:00: times a day. Dx Medical Code Branch E11.9. Brand per insurance. Lancets 2020-07 Yes [id number] Check [place] [facility] ers Misc 0-11 sugars 3 ity of 00:00: times a day. Dx Medical Code Branch E11.9. Brand per insurance. zolpidem 5 2020-0 Yes 5mg Take 5 mg Un marianne mg tablet 8-19 by mouth. ity o f 10:44: [address] zolpidem 5 2020-0 Yes 5mg Take 5 mg Un [place]ian[place] mg tablet 8-19 by mouth. ity o f 10:44: [address] zolpidem 5 2020-0 Yes 5mg Take 5 mg Un [place]ian[place] mg tablet 8-19 by mouth. ity o f 10:44: [address] zolpidem 5 2020-0 Yes 5mg Take 5 mg Un [place]ian[place] mg tablet 8-19 by mouth. ity o f 10:44: [address] zolpidem 5 2020-0 Yes 5mg Take 5 mg Un [place]ian[place] mg tablet 8-19 by mouth. ity o f 10:44: [address] zolpidem 5 2020-0 Yes 5mg Take 5 mg Un [place] mg tablet 8-19 by mouth. ity o f 10:44: [address] zolpidem 5 2020-0 Yes 5mg Take 5 mg Un [place] mg tablet 8-19 by mouth. ity o f 10:44: [address] zolpidem 5 2020-0 Yes 5mg Take 5 mg Un [place] mg tablet 8-19 by mouth. ity o f 10:44: [address] levothyroxi 2019-07 Yes 50ug Take [address] [facility] [address] 0-29 [facility]cg [facility] (SYNTHROID, 14:02: mouth Medic al LEVOTHROID) 03 Every Center 50 MCG morning on tablet an empty stomach. glipiZIDE 2019-07 Yes 5mg QD Take [address] [facility] (GLUCOTROL) 0-29 by mouth [facility] 5 MG tablet 14:02: daily. Medi lakshmi 03 [place] candesartan 2019-07 Yes 32mg QD Take [address] (ATACAND) 0-29 by mouth [facility] 32 MG 14:02: daily. Medical tablet 03 [place] multivitami 2019-07 Yes 1{tbl} QD Take [address] [facility] per 0-29 tablet by [facility] tablet 14:02: mouth Medical 03 daily. [place] cyanocobala 2019-07 Yes 1000ug Inject [facility] 0-29 1,000 [facility]cg [facility] (VITAMIN 14:02: intramuscu Med ical B-12) 1,000 03 [facility] mcg/mL once. injection esomeprazol 2019-07 Yes 40mg QD Take [address] [facility] (NexIUM) 0-29 [facility] 20 MG 14:02: daily. Medical capsule 03 [place] ALPRAZolam 2019-07 Yes .5mg Take 0.[address] [facility] (XANAX) 0.5 0-29 mg by [facility] MG tablet 14:02: mouth Medical 03 every Center night as needed for Anxiety. fluticasone 2019-07 Yes 1{puff} QD Inhale [address] [facility] furoate-chapo 0-29 puff by [facility] anteroL 14:02: mouth via Medic al (Breo 03 inhaler Center Ellipta) daily. 100-25 mcg/dose DsDv ezetimibe 2019-07 Yes 10mg QD Take [address] (ZETIA) 10 0-29 by [facility] mg tablet 14:02: daily. Medica l 03 [place] zolpidem 2019-07 Yes 5mg Take 5 mg [...] [facility] 5 MG tablet 14:02: daily. [facility] 03 [place] candesartan 2019-07 Yes 32mg QD Take [address] [facility] (ATACAND) 0-29 by mouth [facility] 32 MG 14:02: daily. Medical tablet [place] multivitami 2019-07 Yes 1{tbl} QD Take [address] n per 0-29 tablet by [facility] tablet 14:02: mouth Medical 03 daily. [place] cyanocobala 2019-07 Yes 1000ug Inject [facility] min 0-29 1,000 mcg [facility] (VITAMIN 14:02: intramuscu Med ical B-12) 1,000 03 [facility] mcg/mL once. injection esomeprazol 2019-07 Yes 40mg QD Take [address] [facility] (NexIUM) 0-29 by mouth [facility] 20 MG 14:02: daily. Medical capsule 03 [place] ALPRAZolam 2019-07 Yes .5mg Take 0.[address] [facility] (XANAX) 0.5 0-29 mg by [facility] MG tablet 14:02: mouth Medical 03 every Center night as needed for Anxiety. fluticasone 2019-07 Yes 1{puff} QD Inhale [address] [facility] furoate-chapo 0-29 puff by [facility] anteroL 14:02: mouth via Medic al (Breo 03 inhaler [place] Ellipta) daily. 100-25 mcg/dose DsDv ezetimibe 2019-07 Yes 10mg QD Take [address] (ZETIA) 10 0-29 [facility] mg tablet 14:02: daily. Medica l [place] zolpidem 2019-07 Yes 5mg Take 5 mg [...] 5 MG tablet 14:02: daily. Medi lakshmi [place] candesartan 2019-07 Yes 32mg QD Take [address] [facility] (ATACAND) 0-29 by mouth [facility] 32 MG 14:02: daily. Medical tablet [place] multivitami 2019-07 Yes 1{tbl} QD Take [address] n per 0-29 tablet by [facility] tablet 14:02: mouth Medical 03 daily. [place] cyanocobala 2019-07 Yes 1000ug Inject [facility] min 0-29 1,000 mcg [facility] (VITAMIN 14:02: intramuscu Med ical B-12) 1,000 03 [facility] mcg/mL once. injection esomeprazol 2019-07 Yes 40mg QD Take [address] [facility] (NexIUM) 0-29 by mouth [facility] 20 MG 14:02: daily. Medical capsule 03 [place] ALPRAZolam 2019-07 Yes .5mg Take 0.[address] [address] (XANAX) 0.5 0-29 mg by [facility] MG tablet 14:02: mouth Medical 03 every Center night as needed for Anxiety. fluticasone 2019-07 Yes 1{puff} QD Inhale [address] [facility] furoate-chapo 0-29 puff by [facility] anteroL 14:02: mouth via Medic al (Breo 03 inhaler Center Ellip) daily. 100-25 mcg/dose DsDv ezetimibe 2019-07 Yes 10mg QD Take [address] (ZETIA) 10 0-29 by [facility] mg tablet 14:02: daily. Medica l 03 [place] zolpidem 2019-07 Yes 5mg Take [address] [facility] (AMBIEN) 5 0-29 by mouth [facility] MG tablet 14:02: every Medical 03 night as Center needed for Insomnia. fluticasone Yes [id number] 1{puff} Inhale 1 Univers -vilanterol 6-04 Puff 2 ity of (BREO 00:00: (two) [place] ELLIPTA) 00 times Medical 100-25 daily. Branch mcg/dose DsDv fluticasone Yes [id number] 1{puff} Inhale 1 Univers -vilanterol 6-04 Puff 2 ity of (BREO 00:00: (two) [place] ELLIPTA) 00 times Medical 100-25 daily. Branch mcg/dose DsDv fluticasone Yes [id number] 1{puff} Inhale 1 Univers -vilanterol 6-04 Puff 2 ity of (BREO 00:00: (two) [place] ELLIPTA) 00 times Medical 100-25 daily. Branch mcg/dose DsDv fluticasone Yes [id number] 1{puff} Inhale 1 Univers -vilanterol 6-04 Puff 2 ity of (BREO 00:00: (two) [place] ELLIPTA) 00 times Medical 100-25 daily. Branch mcg/dose DsDv fluticasone Yes [id number] 1{puff} Inhale 1 Univers -vilanterol 6-04 Puff 2 ity of (BREO 00:00: (two) [place] ELLIPTA) 00 times Medical 100-25 daily. Branch mcg/dose DsDv fluticasone Yes [id number] 1{puff} Inhale 1 Univers -vilanterol 6-04 Puff 2 ity of (BREO 00:00: (two) [place] ELLIPTA) 00 times Medical 100-25 daily. Branch mcg/dose DsDv fluticasone Yes [id number] 1{puff} Inhale 1 Univers -vilanterol 6-04 Puff 2 ity of (BREO 00:00: (two) [place] ELLIPTA) 00 times Medical 100-25 daily. Branch mcg/dose DsDv fluticasone Yes [id number] 1{puff} Inhale 1 Univers -vilanterol 6-04 Puff 2 ity of (BREO 00:00: (two) [place] ELLIPTA) 00 times Medical 100-25 daily. Branch mcg/dose DsDv blood sugar Yes [id number] Use BID, Univers diagnostic 4-30 DX E11.9 ity o f (ACCU-CHEK 00:00: (Brand [place] SMARTVIEW 00 upon Medical TEST STRIP) insurance [facility] strip approval) blood sugar Yes [id number] Use BID, Univers diagnostic 4-30 DX E11.9 ity o f (ACCU-CHEK 00:00: (Brand [place] SMARTVIEW 00 upon Medical TEST STRIP) insurance [facility] strip approval) blood sugar Yes [id number] Use BID, Univers diagnostic 4-30 DX E11.9 ity o f (ACCU-CHEK 00:00: (Brand [place] SMARTVIEW 00 upon Medical TEST STRIP) insurance [facility] strip approval) blood sugar Yes [id number] Use BID, Univers diagnostic 4-30 DX E11.9 ity o f (ACCU-CHEK 00:00: (Brand [place] SMARTVIEW 00 upon Medical TEST STRIP) insurance [facility] strip approval) blood sugar Yes [id number] Use BID, Univers diagnostic 4-30 DX E11.9 ity o f (ACCU-CHEK 00:00: (Brand [place] SMARTVIEW 00 upon Medical TEST STRIP) insurance [facility] strip approval) blood sugar Yes [id number] Use BID, Univers diagnostic 4-30 DX E11.9 ity o f (ACCU-CHEK 00:00: (Brand [place] SMARTVIEW 00 upon Medical TEST STRIP) insurance [facility] strip approval) blood sugar Yes [id number] Use BID, Univers diagnostic 4-30 DX E11.9 ity o f (ACCU-CHEK 00:00: (Brand [place] SMARTVIEW 00 upon Medical TEST STRIP) insurance [facility] strip approval) blood sugar Yes [id number] Use BID, Univers diagnostic 4-30 DX E11.9 ity o f (ACCU-CHEK 00:00: (Brand [place] SMARTVIEW 00 upon Medical TEST STRIP) insurance [facility] strip approval) Immunizations Ordered Filled Immunization Date Status Comments [facility] Immunization Name Name SARS-COV-2 COVID-19 2021-06-22 [...] Completed Unive rsity of MODERNA 0.25ML 00:00:00 [facility] [place] VACCINE Branch Influenza High Dose 2021-03-30 Completed Unive rsity of 00:00:00 [facility] Influenza High Dose 2021-03-30 Completed Unive rsity of 00:00:00 [facility] Influenza High Dose 2021-03-30 Completed Unive rsity of 00:00:00 [facility] Influenza High Dose 2021-03-30 Completed Unive rsity of 00:00:00 [facility] Influenza High Dose 2021-03-30 Completed Unive rsity of 00:00:00 [facility] Influenza High Dose 2021-03-30 Completed Unive rsity of 00:00:00 [facility] Influenza High Dose 2021-03-30 Completed Unive rsity of 00:00:00 [facility] Influenza High Dose 2021-03-30 Completed Unive rsity of 00:00:00 [facility] Zoster Vaccine 2021-03-06 Completed University of Recombinant 00:00:00 [facility] Zoster Vaccine 2021-03-06 Completed University of Recombinant 00:00:00 [facility] Zoster Vaccine 2021-03-06 Completed University of Recombinant 00:00:00 [facility] Zoster Vaccine 2021-03-06 Completed University of Recombinant 00:00:00 [facility] Zoster Vaccine 2021-03-06 Completed University of Recombinant 00:00:00 [facility] Zoster Vaccine 2021-03-06 Completed University of Recombinant 00:00:00 [facility] Zoster Vaccine 2021-03-06 Completed University of Recombinant 00:00:00 [facility] Zoster Vaccine 2021-03-06 Completed University of Recombinant 00:00:00 [facility] SARS-COV-2 COVID-19 2020-09-13 Completed Unive rsity of MODERNA 12+ YRS 00:00:00 [facility] VACCINE Branch SARS-COV-2 COVID-19 2020-09-13 Completed Unive rsity of MODERNA 12+ YRS 00:00:00 [facility] ica VACCINE Branch SARS-COV-2 COVID-19 2020-09-13 Completed Unive rsity of MODERNA 12+ YRS 00:00:00 [facility] VACCINE Branch SARS-COV-2 COVID-19 2020-09-13 Completed Unive rsity of MODERNA 12+ YRS 00:00:00 [place] [facility] ical VACCINE Branch SARS-COV-2 COVID-19 2020-09-13 Completed Unive rsity of MODERNA 12+ YRS 00:00:00 [place] [facility] ical VACCINE Branch SARS-COV-2 COVID-19 2020-09-13 Completed Unive rsity of MODERNA 12+ YRS 00:00:00 [place] [facility] ical VACCINE Branch SARS-COV-2 COVID-19 2020-09-13 Completed Unive rsity of MODERNA 12+ YRS 00:00:00 [place] Med ical VACCINE Branch SARS-COV-2 COVID-19 2020-09-13 Completed Unive rsity of MODERNA 12+ YRS 00:00:00 [place] Med ical VACCINE Branch SARS-COV-2 COVID-19 2020-08-16 Completed Unive rsity of MODERNA 12+ YRS 00:00:00 [place] [facility] ical VACCINE Branch SARS-COV-2 COVID-19 2020-08-16 Completed Unive rsity of MODERNA 12+ YRS 00:00:00 [place] [facility] ical VACCINE Branch SARS-COV-2 COVID-19 2020-08-16 Completed Unive rsity of MODERNA 12+ YRS 00:00:00 [place] [facility] ical VACCINE Branch SARS-COV-2 COVID-19 2020-08-16 Completed Unive rsity of MODERNA 12+ YRS 00:00:00 [place] [facility] ical VACCINE Branch SARS-COV-2 COVID-19 2020-08-16 Completed Unive rsity of MODERNA 12+ YRS 00:00:00 [place] [facility] ical VACCINE Branch SARS-COV-2 COVID-19 2020-08-16 Completed Unive rsity of MODERNA 12+ YRS 00:00:00 [place] [facility] ical VACCINE Branch SARS-COV-2 COVID-19 2020-08-16 Completed Unive rsity of MODERNA 12+ YRS 00:00:00 [place] Med ical VACCINE Branch SARS-COV-2 COVID-19 2020-08-16 Completed Unive rsity of MODERNA 12+ YRS 00:00:00 [place] Med ical VACCINE Branch Influenza Virus 2020-03-26 Completed Universit y of Vaccine (3+ yrs) 00:00:00 [facility] dical Branch Influenza Virus 2020-03-26 Completed Universit y of Vaccine (3+ yrs) 00:00:00 [facility] Influenza Virus 2020-03-26 Completed Universit y of Vaccine (3+ yrs) 00:00:00 [facility] Influenza Virus 2020-03-26 Completed Universit y of Vaccine (3+ yrs) 00:00:00 [facility] Influenza Virus 2020-03-26 Completed Universit y of Vaccine (3+ yrs) 00:00:00 [facility] Influenza Virus 2020-03-26 Completed Universit y of Vaccine (3+ yrs) 00:00:00 [facility] Influenza Virus 2020-03-26 Completed Universit y of Vaccine (3+ yrs) 00:00:00 [facility] Influenza Virus 2020-03-26 Completed Universit y of Vaccine (3+ yrs) 00:00:00 [facility] Pneumococcal 2019-05-16 Completed University o f Polysaccharide, 00:00:00 [facility] ical PPSV23 (PNEUMOVAX) Branch Pneumococcal 2019-05-16 Completed University o f Polysaccharide, 00:00:00 [place] Med ical PPSV23 (PNEUMOVAX) Branch Pneumococcal 2019-05-16 Completed University o f Polysaccharide, 00:00:00 [place] Med ical PPSV23 (PNEUMOVAX) Branch Pneumococcal 2019-05-16 Completed University o f Polysaccharide, 00:00:00 [facility] ical PPSV23 (PNEUMOVAX) Branch Pneumococcal 2019-05-16 Completed University o f Polysaccharide, 00:00:00 [place] [facility] ical PPSV23 (PNEUMOVAX) Branch Pneumococcal 2019-05-16 Completed University o f Polysaccharide, 00:00:00 [place] [facility] ical PPSV23 (PNEUMOVAX) Branch Pneumococcal 2019-05-16 Completed University o f Polysaccharide, 00:00:00 [place] [facility] ical PPSV23 (PNEUMOVAX) Branch Pneumococcal 2019-05-16 Completed University o f Polysaccharide, 00:00:00 [facility] ical PPSV23 (PNEUMOVAX) Branch Zoster Vaccine 2019-01-30 Completed University of Recombinant 00:00:00 [facility] Zoster Vaccine 2019-01-30 Completed University of Recombinant 00:00:00 [facility] Zoster Vaccine 2019-01-30 Completed University of Recombinant 00:00:00 [facility] Zoster Vaccine 2019-01-30 Completed University of Recombinant 00:00:00 [facility] Zoster Vaccine 2019-01-30 Completed University of Recombinant 00:00:00 [facility] Zoster Vaccine 2019-01-30 Completed University of Recombinant 00:00:00 [facility] Zoster Vaccine 2019-01-30 Completed University of Recombinant 00:00:00 [facility] Zoster Vaccine 2019-01-30 Completed University of Recombinant 00:00:00 [facility] Pneumococcal 2018-05-05 Completed University o f Polysaccharide, [...] 2018-05-05 Completed University o f Polysaccharide, 00:00:00 [facility] ical PPSV23 (PNEUMOVAX) Branch Pneumococcal 13 2018-05-05 Completed Universit y of Conjugate, PCV13 00:00:00 [facility] dical (Prevnar 13) Branch Influenza High Dose 2018-05-04 Completed Unive rsity of 00:00:00 [facility] Influenza High Dose 2018-05-04 Completed Unive rsity of 00:00:00 [facility] Branch Influenza High Dose 2018-05-04 Completed Unive rsity of 00:00:00 [facility] Influenza High Dose 2018-05-04 Completed Unive rsity of 00:00:00 [facility] Influenza High Dose 2018-05-04 Completed Unive rsity of 00:00:00 [facility] Influenza High Dose 2018-05-04 Completed Unive rsity of 00:00:00 [facility] Influenza High Dose 2018-05-04 Completed Unive rsity of 00:00:00 [facility] Influenza High Dose 2018-05-04 Completed Unive rsity of 00:00:00 [facility] Influenza High Dose 2017-04-14 Completed Unive rsity of 00:00:00 [facility] Influenza High Dose 2017-04-14 Completed Unive rsity of 00:00:00 [facility] Influenza High Dose 2017-04-14 Completed Unive rsity of 00:00:00 [facility] Influenza High Dose 2017-04-14 Completed Unive rsity of 00:00:00 [facility] Influenza High Dose 2017-04-14 Completed Unive rsity of 00:00:00 [facility] Influenza High Dose 2017-04-14 Completed Unive rsity of 00:00:00 [facility] Influenza High Dose 2017-04-14 Completed Unive rsity of 00:00:00 [facility] Influenza High Dose 2017-04-14 Completed Unive rsity of 00:00:00 [facility] Influenza High Dose 2016-05-08 Completed Unive rsity of 00:00:00 [facility] Influenza High Dose 2016-05-08 Completed Unive rsity of 00:00:00 [facility] Influenza High Dose 2016-05-08 Completed Unive rsity of 00:00:00 [facility] Influenza High Dose 2016-05-08 Completed Unive rsity of 00:00:00 [facility] Influenza High Dose 2016-05-08 Completed Unive rsity of 00:00:00 [facility] Influenza High Dose 2016-05-08 Completed Unive rsity of 00:00:00 [facility] Influenza High Dose 2016-05-08 Completed Unive rsity of 00:00:00 [facility] Influenza High Dose 2016-05-08 Completed Unive rsity of 00:00:00 [facility] Influenza High Dose 2016-04-05 Completed Unive rsity of 00:00:00 [facility] Influenza High Dose 2016-04-05 Completed Unive rsity of 00:00:00 [facility] Influenza High Dose 2016-04-05 Completed Unive rsity of 00:00:00 [facility] Influenza High Dose 2016-04-05 Completed Unive rsity of 00:00:00 [facility] Influenza High Dose 2016-04-05 Completed Unive rsity of 00:00:00 [facility] Influenza High Dose 2016-04-05 Completed Unive rsity of 00:00:00 [facility] Influenza High Dose 2016-04-05 Completed Unive rsity of 00:00:00 [facility] Influenza High Dose 2016-04-05 Completed Unive rsity of 00:00:00 [facility] Pneumococcal 2015-06-23 Completed University o f Polysaccharide, [...] 2015-06-23 Completed University o f Polysaccharide, 00:00:00 [facility] ical PPSV23 (PNEUMOVAX) Branch Zoster(Zostavax)( 2006-10-06 Completed Unive rsity of ingles) 00:00:00 [facility] Branch Zoster(Zostavax)( 2006-10-06 Completed Unive rsity of ingles) 00:00:00 [facility] Branch Zoster(Zostavax)( 2006-10-06 Completed Unive rsity of ingles) 00:00:00 [facility] Branch Zoster(Zostavax)( 2006-10-06 Completed Unive rsity of ingles) 00:00:00 [facility] Branch Zoster(Zostavax)( 2006-10-06 Completed Unive rsity of ingles) 00:00:00 [facility] Branch Zoster(Zostavax)( 2006-10-06 Completed Unive rsity of ingles) 00:00:00 [facility] Branch Zoster(Zostavax)( 2006-10-06 Completed Unive rsity of ingles) 00:00:00 [facility] Branch Zoster(Zostavax)( 2006-10-06 Completed Unive rsity of ingles) 00:00:00 [facility] Vital Signs Vital Name Observation Time Observation Value Comments Source HEIGHT 2020-05-08 11:00:00 157.5 cm WEIGHT 2020-05-08 11:00:00 48.988 kg WEIGHT 2020-05-02 14:15:00 52.164 kg HEIGHT 2020-05-02 14:15:00 157.5 cm Systolic blood 2022-05-28 18:58:00 133 mm[Hg] Univer sity of pressure [facility] Diastolic blood 2022-05-28 18:58:00 63 mm[Hg] Unive rsity of pressure [facility] Heart rate 2022-05-28 18:50:00 80 /min [facility] Body temperature 2022-05-28 18:50:00 37.17 [facility]ae [facility] 2022-05-28 18:50:00 16 /min [facility] height 2022-05-28 18:50:00 157.5 cm [facility] Body weight 2022-05-28 18:50:00 53.524 kg [facility] BMI 2022-05-28 18:50:00 21.58 kg/m2 [facility] Systolic blood 2022-05-07 16:22:00 164 mm[Hg] Univer sity of pressure [facility] Diastolic blood 2022-05-07 16:22:00 77 mm[Hg] Unive rsity of [facility] Heart rate 2022-05-07 16:20:00 70 /min [facility] Body temperature 2022-05-07 16:20:00 36.83 Nae [facility] Respiratory rate 2022-05-07 16:20:00 18 /min [facility] Body height 2022-05-07 16:20:00 157.5 cm [facility] Body weight 2022-05-07 16:20:00 51.982 kg [facility] BMI 2022-05-07 16:20:00 20.96 kg/m2 [facility] Oxygen saturation in 2022-05-07 16:20:00 97 /min [facility] Arterial blood by [facility] Pulse oximetry Branch HEIGHT 2020-05-08 11:00:00 157.5 cm WEIGHT 2020-05-08 11:00:00 48.988 kg WEIGHT 2020-05-02 14:15:00 52.164 kg HEIGHT 2020-05-02 14:15:00 157.5 cm Procedures Procedure Date / Time Performed Performing Clinician Sourc e POCT URINALYSIS W/O 2022-05-28 19:06:00 Baltazar Neil [facility] SPECIFIC GRAVITY [facility] Branch REFERRAL- 2022-01-29 05:01:00 Doctor Unassigned, No [facility] REQUEST/RESPONSE Name [facility] Branch Plan of Care Planned Activity Planned Date Details Comments Source Future Scheduled 2023-03-[address] [facility] Test 00:00:00 (Season Ended) [code = Medic de Center INFLUENZA VACCINE (Season Ended)] Future Scheduled 2023-03-11 Influenza Vaccine (#1) [facility]:00 [code = Influenza Medical Ce nter Vaccine (#1)] Future Scheduled 2022-07-[address] [facility] Test 00:00:00 (12+) [code = Medical Center DEPRESSION SCREENING (12+)] Future Scheduled 2022-07-11 FALLS RISK SCREENING [facility] Test 00:00:00 [code = FALLS RISK Medical C enter SCREENING] Future Scheduled 2022-07-[address] [facility] Test 00:00:00 (12+) [code = [facility] Center DEPRESSION SCREENING (12+)] Future Scheduled 2022-07-11 FALLS RISK SCREENING [facility] Test 00:00:00 [code = FALLS RISK Medical C enter SCREENING] Future Scheduled 2022-03-11 INFLUENZA VACCINE (#1) [facility] 00:00:00 [code = INFLUENZA Medical Ce nter VACCINE (#1)] Future Scheduled 2022-02-06 Screening for malignant [facility] Test 00:00:00 neoplasm of breast Medical C enter (procedure) [code = 654683521] Future Scheduled 2022-02-06 Screening for malignant [facility] Test 00:00:00 neoplasm of breast Medical C enter (procedure) [code = 077315763] Future Scheduled 2022-02-06 Screening for malignant [facility] Test 00:00:00 neoplasm of breast Medical C enter (procedure) [code = 160693685] Future Scheduled 2021-07-[address] [facility] Test 00:00:00 (12+) [code = [facility] Center DEPRESSION SCREENING (12+)] Future Scheduled 2021-07-11 FALLS RISK SCREENING [facility] Test 00:00:00 [code = FALLS RISK Medical C enter SCREENING] Future Scheduled 2021-05-[address] [facility] Test 00:00:00 Counseling and Medical Cente r Screening (12+) [code = Tobacco Cessation Counseling and Screening (12+)] Future Scheduled 2021-05-[address] [...] IPPE)] Future Scheduled 2006-12-01 SHINGLES VACCINES ([address] [facility] Test 00:00:00 3) [code = SHINGLES Medical Center VACCINES (2 of 3)] Future Scheduled 2006-12-01 SHINGLES VACCINES ([address] [facility] Test 00:00:00 3) [code = SHINGLES Medical Center VACCINES (2 of 3)] Future Scheduled 2006-12-01 SHINGLES VACCINES ([address] [facility] Test 00:00:00 3) [code = SHINGLES Medical Center VACCINES (2 of 3)] Future Scheduled 1967 [...] VACCINE (#1)] Future Scheduled 1948 Screening for malignant [facility] Test 00:00:00 neoplasm of colon Medical Ce nter (procedure) [code = 293552612] Future Scheduled 1948 Screening for malignant [facility] Test 00:00:00 neoplasm of colon Medical Ce nter (procedure) [code = 934879888] Future Scheduled 1948 DXA SCAN [code = DXA [facility] Test 00:00:00 SCAN] [facility] Future Scheduled 1948 Screening for malignant [facility] Test 00:00:00 neoplasm of colon Medical Ce nter (procedure) [code = 306111814] Future Scheduled 1948 Screening for malignant [facility] Test 00:00:00 neoplasm of colon Medical Ce nter (procedure) [code = 986911096] Future Scheduled 1948 Sigmoidoscopy [code = [facility] S[facility]] [facility] Future Scheduled 1948 CT Colonography (combo) [facility] Test 00:00:00 [code = CT Colonography [facility] (combo)] Future Scheduled 1948 Screening for malignant [facility] Test 00:00:00 neoplasm of colon Medical Ce nter (procedure) [code = 424800172] Future Scheduled 1948 Screening for malignant [facility] Test 00:00:00 neoplasm of colon Medical Ce nter (procedure) [code = 152977150] Future Scheduled 1948 DXA SCAN [code = DXA [facility] Test 00:00:00 SCAN] [facility] Future Scheduled 1948 Screening for malignant [facility] Test 00:00:00 neoplasm of colon Medical Ce nter (procedure) [code = 836938573] Future Scheduled 1948 Screening for malignant [facility] Test 00:00:00 neoplasm of colon Medical Ce nter (procedure) [code = 638509165] Future Scheduled 1948 Sigmoidoscopy [code = [facility] S[facility]oscopy] Medical Cente r Future Scheduled 1948 CT Colonography (combo) [facility] Test 00:00:00 [code = CT Colonography [facility] Center (combo)] Future Scheduled 1948 Screening for malignant [facility] Test 00:00:00 neoplasm of colon Medical Ce nter (procedure) [code = 808410618] Future Scheduled 1948 DXA SCAN [code = DXA [facility] Test 00:00:00 SCAN] [facility] Future Scheduled 1948 Screening for malignant [facility] Test 00:00:00 neoplasm of colon Medical Ce nter (procedure) [code = 711298068] Future Scheduled 1948 Screening for malignant [facility] Test 00:00:00 neoplasm of colon Medical Ce nter (procedure) [code = 664445034] Future Scheduled 1948 Sigmoidoscopy [facility]code = [facility] Medical Cent[facility] r Future Scheduled 1948 CT Colonography (combo) [facility] Test 00:00:00 [code = CT Colonography [facility] Center (combo)] Future Scheduled 1948 Screening for malignant [facility] Test 00:00:00 neoplasm of colon Medical Ce nter (procedure) [code = 689679785] Encounters Start End Encounter Admission Attending Care Care Encounter Source Date/Time Date/Time Type Type Clinicians Facility Department ID 2021-05-10 Emergency [facility] [id number] Univers 17:41[facility]-09 [facility] [id number] Univers 12:52:48 [facility] 2021-05-08 Out[facility] [id number] Univers [facility]:32[facility]08 Emergency [facility] [id number] Univers 00:28:51 [facility] 2021-04-15 Outpatient MEE CARLSON Surgery [id number] [facility] 10:22:12 JOANNE 2022-09-18 2022-09-18 [facility] 1.2.840.114 [id number] Univers 00:00:00 00:00:00 Helga HEALTH 350.1.13.10 it y of [place] 4.2.7.2.686 Ge as ISSAC?BLEA [id number] [facility] 370 [facility] 2022-07-27 2022-07-27 Outpatient R [facility] [id number] Univers 10:00:00 10:00:00 [facility] 2022-07-27 2022-07-27 [facility] [id number] Univers 10:00:00 10:00:00 [facility] 2022-07-27 2022-07-27 [facility] [id number] Univers 10:00:00 10:00:00 [facility] 2022-06-30 2022-06-30 Telephone [facility] 1.2.840.114 [id number] Univers 00:00:00 00:00:00 Baltazar GALICIA 350.1.13.10 i ty of [place] [id number] [address] 2022-06-16 2022-06-16 Telephone [facility] 1.2.923.643 [id number] Univers 00:00:00 00:00:00 Count includes the [facility] 350.1.13.10 it y of [place] 4.2.7.2.686 Ge as ISSAC?BLEA [phone] Tn rika MOORE 220 [facility] 2022-05-28 2022-05-28 Office [facility] 1.2.840.114 [id number] Univers 13:30:00 13:30:00 Visit Baltazar GRAYSON 350.1.13.10 i ty of [place] 4.2.7.2.[place] [id number] [address] 2022-05-28 2022-05-28 Out[facility] [id number] Univers 13:30:00 13:23:49 BALTAZAR rojas [facility] 2022-05-10 2022-05-10 Outpatient SFA SFA [id number] Yann 14:32:23 14:32:23 1031 F Panfilo 2022-05-07 2022-05-07 Urgent Nurse, [facility] 1.2.840.114 [id number] Univers 11:00:00 11:20:00 Care Unknown, [facility] HEALTH 350.1.13.10 ity of [place] 4.2.7.2.686 [place] ISSAC?BLEA [phone] Tn rika MOORE 370 [facility] 2022-05-07 2022-05-07 Outpatient R RITCHIE [facility] [id number] Univers 11:00:00 11:00:00 [place] itbeatrice [facility] 2022-03-24 2022-03-24 Telephone [facility] 1.2.914.739 [id number] Univers 00:00:00 00:00:00 [facility] HEALTH 350.1.13.10 it y of [place] 4.2.7.2.686 Ge as ISSAC?BLEA [id number] Tn rika MOORE 220 [facility] 2022-03-24 2022-03-24 Telephone [facility] 1.2.308.404 [id number] Univers 00:00:00 00:00:00 [facility] HEALTH 350.1.13.10 it y of [place] 4.2.7.2.686 Ge as ISSAC?BLEA [id number] Tn rika MOORE 220 [facility] OFFICE [facility] 2022-02-26 2022-02-26 Telemedici [facility] 1.2.840.114 [id number] Univers 16:15:00 16:30:00 ne Visit Baltazar GRAYSON 350.1.13.10 ity of [place] 4.2.7.2.686 [place] [id number] Tn dical NAL 098 [facility] 2022-02-26 2022-02-26 Outpatient R [facility] [id number] Univers 16:15:00 16:15:00 BALTAZAR ity [facility] 2022-02-10 2022-02-10 Telephone [facility] 1.2.840.114 [id number] Univers 00:00:00 00:00:00 Baltazar [place] 350.1.13.10 i ty of [facility] 4.2.7.[place] [id number] [address] 2022-02-05 2022-02-05 Telephone [facility] 1.2.840.114 [id number] Univers 00:00:00 00:00:00 Baltazar [place] 350.1.13.10 i ty of [facility] 4.2.7.2.[place] [id number] [address] 2022-02-05 2022-02-05 Telephone [facility] 1.2.840.114 [id number] Univers 00:00:00 00:00:00 Baltazar [place] 350.1.13.10 i ty of [facility] 4.2.7.2.[place] [id number] [address] 2022-02-03 2022-02-03 Outpatient R DEX, [facility] [id number] Univers 13:30:00 13:30:00 JYOTHI rojas [facility] 2022-02-01 2022-02-01 Hospital Radiology [facility] 1.2.840.114 [id number] Univers 09:09:25 23:59:00 Encounter [place] 350.1.13.10 ity of [facility] 4.2.7.2.686 [place] C[place] [id number] [address] 2022-02-01 2022-02-01 Outpatient R RADIOLOGY [facility] [id number] Univers 09:09:25 09:09:25 ity of [facility] 2022-02-01 2022-02-01 Outpatient R RADIOLOGY [facility] [id number] Univers 09:07:56 09:08:00 ity [facility] 2022-02-01 2022-02-01 Hospital Radiology [facility] 1.2.840.114 [id number] Univers 09:07:56 09:08:00 Encounter GRAYS[place] 350.1.13.10 ity of [place] 4.2.7.2.686 [place] [facility] [id number] [facility] [address] [place] 2022-02-01 2022-02-01 Outpatient R RADIOLOGY [facility] [id number] Univers 09:07:56 09:07:56 ity of [facility] 2022-02-01 2022-02-01 Outpatient R RADIOLOGY [facility] [id number] Univers 00:00:00 00:00:00 ity of [facility] 2022-02-01 2022-02-01 Outpatient R RADIOLOGY [facility] [id number] Univers 00:00:00 00:00:00 ity of [facility] 2022-02-01 2022-02-01 Telephone Dex [facility] 1.2.193.827 [id number] Univers 00:00:00 00:00:00 Jyothi HEALTH 350.1.13.10 it y of [place] 4.2.7.2.686 Ge as ISSAC?BLEA [id number] Tn rika TERESA [address] [place] MEDICAL OFFICE [facility]ILD[facility] 2022-01-29 2022-01-29 Outpatient R RADIOLOGY [facility] [id number] Univers 00:00:00 00:00:00 ity of [facility] 2022-01-29 2022-01-29 Telephone Orestes COMOOKIE 1.2.683.649 [id number] Univers 00:00:00 00:00:00 Wentclaudia HEALTH 350.1.13.10 it y of [place] 4.2.7.2.686 Ge as ISSAC?BLEA [phone] Tn rika TERESA [address] [place] MEDICAL OFFICE [facility]ILDING 2022-01-29 2022-01-29 Orders Doctor JAMAL 1.2.840.114 [id number] Univers 00:00:00 00:00:00 Only Unassigned, FLAVIA 350.1.13.10 ity of [place] [facility] 4.2.7.2.686 Ge as [id number] [facility] [address] [place] 2022-01-28 2022-01-28 Telephone Orestes [facility] 1.2.508.833 [id number] Univers 00:00:00 00:00:00 Wentong HEALTH 350.1.13.10 it y of [place] 4.2.7.2.686 Ge as ISSAC?BLEA [id number] Tn rika MOORE [address] [facility] OFFICE [facility] 2022-01-28 2022-01-28 Telephone [facility] 1.2.330.627 [id number] Univers 00:00:00 00:00:00 Wentong HEALTH 350.1.13.10 it y of [place] 4.2.7.2.686 Ge as ISSAC?BLEA [id number] Tn rika MOORE 220 [facility] OFFICE [facility] 2022-01-25 2022-01-[address] [facility] 1.2.840.114 [id number] Univers 00:00:00 00:00:00 Jyothi HEALTH 350.1.13.10 it y [facility] 4.2.7.2.686 Ge as ISSAC?BLEA [phone] Tn rika MOORE 0[address] [facility] OFFICE [facility] 2022-01-25 2022-01-25 Telephone [facility] 1.2.840.114 [id number] Univers 00:00:00 00:00:00 Baltazar [place] 350.1.13.10 i ty of [place] 4.2.7.2.686 [place] [phone] Tn rika QUIÑONES 098 [facility] 2022-01-25 2022-01-25 Telephone [facility] 1.2.840.114 [id number] Univers 00:00:00 00:00:00 Baltazar [place] 350.1.13.10 i ty of [facility] 4.2.7.2.686 [place] [phone] Tn dicyanet NAL 8 [facility] 2022-01-20 2022-01-20 Outpatient R RADIOLOGY [facility] [id number] Univers 15:16:13 23:59:00 ity of [facility] 2022-01-20 2022-01-20 Hospital Radiology [facility] 1.2.840.114 [id number] Univers 15:16:13 23:59:00 Encounter [place] 350.1.13.10 ity of [facility] 4.2.7.2.686 [place] [id number] [facility] lakshmi [address] [place] 2022-01-20 2022-01-20 Outpatient R RADIOLOGY [facility] [id number] Univers 15:16:13 23:59:00 ity [facility] 2022-01-20 2022-01-20 Outpatient R RADIOLOGY [facility] [id number] Univers 00:00:00 00:00:00 ity [facility] 2022-01-19 2022-01-19 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, Ang - [facility] 1.2.840.1 14 [id number] Univers 11:30:00 11:45:00 Visit Orestes Count includes the [facility] 350.1.13.10 ity of [place] 4.2.7.2.686 Ge as ISSAC?BLEA [phone] Tn rika [facility] [address] [place] MEDICAL OFFICE [facility] 2022-01-19 2022-01-19 Outpatient R ORESTES [facility] [id number] Univers 11:30:00 11:30:00 [facility]22-[facility]19 2022-01-19 Office [facility] 1.2.840.114 [id number] Univers 11:00:00 11:24:26 Visit Count includes the [facility] 350.1.13.10 it y of [facility] 4.2.7.2.686 Ge as ISSAC?BLEA [id number] Tn dicyanet [facility] [address] [facility] OFFICE [facility] 2022-01-19 2022-01-19 Outpatient R ORESTES [facility] [id number] Univers 11:00:00 11:24:26 [facility] 2022-01-15 2022-01-15 Outpatient R RASHAAD [facility] [id number] Univers 15:30:00 [facility]:54:[facility] 2022-01-15 Office [facility] 1.2.840.114 [id number] Univers 15:30:00 15:54:50 Visit Baltazar [place] 350.1.13.10 i ty of [place] 4.2.7.2.686 [place] [facility] [phone] Tn dical [facility] 098 [facility] 2022-01-15 2022-01-15 Office [facility] 1.2.840.114 [id number] Univers 15:30:00 15:54:50 Visit Baltazar GALICIA 350.1.13.10 i ty of [facility] 4.2.7.2.686 [place] [phone] Tn dical NAL 098 [facility] 2022-01-15 2022-01-15 Out[facility] [id number] Univers 15:30:00 15:54:50 BALTAZAR crystal [facility] 2022-01-15 2022-01-15 Out[facility] [id number] Univers 15:30:00 15:30:00 BALTAZAR ity [facility] 2022-01-04 2022-01-04 Telephone [facility] 1.2.840.114 [id number] Univers 00:00:00 00:00:00 Baltazar GALICIA 350.1.13.10 i ty of [place] 4.2.7.2.686 [place] [id number] Tn dical NAL 098 [facility] 2021-12-30 2021-12-30 Telephone [facility] 1.2.840.114 [id number] Univers 00:00:00 00:00:00 Baltazar GALICIA 350.1.13.10 i ty of [place] 4.2.7.2.686 [place] [id number] Tn dical NAL 098 [facility] 2021-12-29 2021-12-29 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 2, Adc Lab [facility] 1.2.840.114 [id number] Univers 09:30:00 09:45:00 Visit Baltazar Neil [place] 350.1.13.10 ity of [facility] 4.2.7.2.686 [place] [id number] Tn rika [facility] 353 [facility] 2021-12-29 2021-12-29 Out[facility] [id number] Univers 09:30:00 09:30:00 BALTAZAR rjoas [facility] 2021-12-18 2021-12-18 Outpatient [facility] [id number] Univers 09:00:00 09:42:46 BALTAZAR ity of [facility] 2021-12-18 2021-12-18 Office [facility] 1.2.840.114 [id number] Univers 09:00:00 09:42:46 Visit Baltazar GALICIA 350.1.13.10 i ty of [place] 4.2.7.2.686 [place] [id number] Tn dical NAL 098 [facility] 2021-12-18 2021-12-18 Telephone [facility] 1.2.304.561 [id number] Univers 00:00:00 00:00:00 Count includes the [facility] 350.1.13.10 it y of [place] 4.2.7.2.686 Ge as ISSAC?BLEA [phone] Tn dical KNEY 220 [facility] OFFICE [facility] 2021-12-09 2021-12-09 Orders Doctor JAMAL 1.2.840.114 [id number] Univers 00:00:00 00:00:00 Only Unassigned, FLAVIA 350.1.13.10 ity of [place] [facility] 4.2.7.2.686 Ge as [id number] [facility] [address] [place] 2021-11-20 2021-11-20 Outpatient R DEX [facility] [id number] Univers 10:30:00 10:30:00 JYOTHI rojas [facility] 2021-11-20 2021-11-20 Outpatient R DEX [facility] [id number] Univers 10:30:00 10:30:00 JYOTHI rojas [facility] 2021-11-19 2021-11-19 Outpatient R RADIOLOGY [facility] [id number] Univers 08:02:51 23:59:00 ity of [facility] 2021-11-19 2021-11-19 Hospital Radiology [facility] 1.2.840.114 [id number] Univers 08:00:00 23:59:00 Encounter GRAYS[place] 350.1.13.10 ity of [place] 4.2.7.2.686 [place] [id number] [facility] [address] [place] 2021-11-17 2021-11-17 Outpatient R EPIFANIO [facility] [id number] Univers 11:30:00 11:30:00 JB ity of [facility] 2021-10-26 2021-10-26 Telephone Orestes [facility] 1.2.066.905 [id number] Univers 00:00:00 00:00:00 Wentong HEALTH 350.1.13.10 it y of [place] 4.2.7.2.686 Ge as ISSAC?BLEA [id number] Tn rika MOORE 220 [facility] OFFICE [facility] 2021-10-21 2021-10-21 Telephone Dex [facility] 1.2.765.210 [id number] Univers 00:00:00 00:00:00 Jyothi HEALTH 350.1.13.10 it y of [place] 4.2.7.2.686 Ge as ISSAC?BLEA [phone] Tn rika MOORE 044 [facility] OFFICE [facility] 2021-10-21 2021-10-21 Telephone Dex [facility] 1.2.667.204 [id number] Univers 00:00:00 00:00:00 Jyothi HEALTH 350.1.13.10 it y of [place] 4.2.7.2.686 Ge as ISSAC?BLEA [phone] Tn rika MOORE 0[address] [facility] OFFICE [facility] 2021-10-20 2021-10-20 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, Ang - Db [facility] 1.2.840.1 14 [id number] Univers 10:15:00 11:06:59 Visit Jyothi Kowalski [place] 350.1.13.10 ity of [place] 4.2.7.2.686 Ge as ISSAC?BLEA [phone] Tn rika MOORE 353 [facility] OFFICE [facility] 2021-10-20 2021-10-20 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, Ang - Db [facility] 1.2.840.1 14 [id number] Univers 10:15:00 11:06:59 Visit Jyothi Kowalski [place] 350.1.13.10 ity of [place] 4.2.7.2.686 Ge as ISSAC?BLEA [id number] Tn rika MOORE 353 [facility] OFFICE [facility] 2021-10-20 2021-10-20 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, Ang - Db [facility] 1.2.840.1 14 [id number] Univers 10:15:00 10:30:00 Visit Jyothi Kowalski 350.1.13.10 ity of [place] 4.2.7.2.686 Ge as ISSAC?BLEA [id number] Tn rika GILMORE 353 [facility] OFFICE [facility] 2021-10-20 2021-10-20 Office [facility] 1.2.840.114 [id number] Univers 09:30:00 10:16:49 Visit Jyothi [facility] 350.1.13.10 it y of [place] 4.2.7.2.686 Ge as ISSAC?BLEA [id number] [address] OFFICE [facility] 2021-10-20 2021-10-20 Outpatient R [facility] [id number] Univers 10:15:00 10:15:00 JYOTHI beatrice [facility] 2021-10-20 2021-10-20 [facility] [id number] Univers 10:15:00 10:15:00 JYOTHI [facility] 2021-10-14 2021-10-14 Outpatient [facility] [id number] Univers 16:00:00 16:00:00 ROSIBEL [facility] 2021-10-14 2021-10-14 Telephone [facility] 1.2.364.440 [id number] Univers 00:00:00 00:00:00 Rosibel A [facility] 350.1.13.10 i ty of [place] 4.2.7.2.686 Ge as ISSAC?BLEA [id number] [address] OFFICE [facility] 2021-10-08 2021-10-08 Outpatient R LYRIC [facility] [id number] Univers 09:30:00 10:29:[address] [facility] [place] [place] 2021-10-08 2021-10-08 Office Lyric [facility] 1.2.840.114 [id number] Univers 09:30:00 10:29:49 Visit Rm, Adc Surg Spec Procedure [place] 3 50.1.13.10 ity of [place] 4.2.7.2.[place] [phone] Me dical NAL 204 [facility] 2021-10-01 2021-10-01 Orders Doctor JAMAL 1.2.840.114 [id number] Univers 00:00:00 00:00:00 Only Unassigned, FLAVIA 350.1.13.10 ity of [place] [facility] 4.2.7.2.686 Ge as [phone] [address] 2021-09-18 2021-09-18 Outpatient R [facility] [id number] Univers 14:30:00 14:57:30 [facility] 2021-09-18 2021-09-18 Outpatient R [facility] [id number] Univers 14:30:00 14:57:30 [facility] 2021-09-18 2021-09-18 Refill [facility] 1.2.840.114 [id number] Univers 00:00:00 00:00:00 Baltazar GALICIA 350.1.13.10 i ty of [place] 4.2.7.2.[place] [phone] Me dical NAL 098 [facility] 2021-09-18 2021-09-18 Orders Doctor JAMAL 1.2.840.114 [id number] Univers 00:00:00 00:00:00 Only Unassigned, FLAVIA 350.1.13.10 [facility] 4.2.7.2.686 Ge as [id number] [address] 2021-09-16 2021-09-16 Outpatient [facility] [id number] Univers 13:00:00 13:00:00 ROSIBEL ity [facility] 2021-09-15 2021-09-15 Emergency X EBRABAUDILIO, [facility] ERT [id number] Univers 12:18:00 15:21:00 BERNICE ity [facility] 2021-09-15 2021-09-15 [facility] 1.2.840.114 [id number] Univers 12:18:00 15:21:00 Bernice GALICIA 350.1.13.10 i ty of [place] 4.2.7.2.686 [facility] [id number] [facility] [address] [place] 2021-09-15 2021-09-15 Telephone Nikkie Muse [facility] 1.2.840.114 [id number] Univers 00:00:00 00:00:00 Drew GALICIA 350.1.13.10 i ty of [place].2.[place] [id number] [address] 2021-09-11 2021-09-11 Outpatient [facility] [id number] Univers 13:43:14 23:59:00 LYNDSEY itbeatrice [facility] 2021-09-11 2021-09-11 Hospital [facility] 1.2.840.114 [id number] Univers 13:43:14 23:59:00 Encounter Lyndsey GALICIA 350.1.13.10 ity [facility] 4.2.7.2.686 [facility] [phone] [facility] [address] [place] 2021-09-03 2021-09-03 Outpatient [facility] [id number] Univers 09:00:00 10:23:34 IVANA rojas [facility] 2021-09-03 2021-09-03 Office [facility] 1.2.099.698 [id number] Univers 09:00:00 10:23:34 Visit Ivana GALICIA 350.1.13.10 i ty of [place] 4[place].2.[place] [id number] [address] 2021-09-03 2021-09-03 Outpatient R [facility] [id number] Univers 09:00:00 09:00:00 IVANA rojas [facility] 2021-08-31 2021-08-31 Outpatient R GERMAIN [facility] [id number] Univers 11:30:00 12:44:19 WONDIFUL ity o f [facility] 2021-08-31 2021-08-31 Office [facility] 1.2.840.114 [id number] Univers 11:30:00 12:44:19 Visit Wondiful A HEALTH 350.1.13.10 ity [facility] 4.2.7.2.686 Ge as ISSAC?BLEA [phone] Tn rika GILMORE [address] [facility] OFFICE [facility] 2021-08-27 2021-08-27 Telephone [facility] 1.2.990.189 [id number] Univers 00:00:00 00:00:00 Lyndsey GALICIA 350.1.13.10 ity [facility] 4.2.7.2.[place] [phone] [facility] 204 [facility] 2021-08-25 2021-08-25 Outpatient R RIA, [facility] [id number] Univers 11:30:00 11:39:59 LYNDSEY rojas [facility] 2021-08-25 2021-08-25 Office [facility] 1.2.840.114 [id number] Univers 11:30:00 11:39:59 Visit Lyndsey GALICIA 350.1.13.10 ity of [facility] [id number] [id number] [facility] [address] [facility] 2021-08-24 2021-08-24 Outpatient R MAYO [facility] [id number] Univers 13:15:00 13:59:09 [facility]20 2021-08-20 [facility] 1..840.114 [id number] Univers 12:20:00 12:40:00 Care Bernice Livestar [id number] it y [facility] 4.2.7.2.686 [place] as ISSAC?BLEA [phone] Tn rika MOORE [address] [facility] OFFICE [facility] 2021-08-20 2021-08-20 Outpatient R LEONOR [facility] [id number] Univers 12:20:00 12:20:00 CALISTAIA ity [facility] 2021-08-20 2021-08-20 Telephone [facility] 1.2.840.114 [id number] Univers 00:00:00 00:00:00 Leroy HEALTH [id number] i ty of [place] 4.2.7.2.686 Ge as ISSAC?BLEA [id number] Tn rika MOORE [address] [place] [facility] OFFICE [facility] 2021-08-19 2021-08-19 Urgent Oliver [facility] 1.2.840.114 [id number] Univers 17:40:00 17:40:00 Care Leroy HEALTH [id number] i ty of [place] 4.2.7.2.686 Ge as ISSAC?BLEA [phone] Tn rika MOORE [address] [facility] OFFICE [facility] 2021-08-19 2021-08-19 Outpatient R OLIVER [facility] [id number] Univers 17:40:00 17:27:59 LEROY ity o [facility] 2021-08-07 2021-08-07 Outpatient R GERMAIN [facility] [id number] Univers 14:30:00 15:08:22 WONDIFUL ity o f [facility] 2021-08-07 2021-08-07 Office [facility] 1.2.840.114 [id number] Univers 14:30:00 15:08:22 [facility] [id number] ity of [place] [id number] Ge as ISSAC?BLEA [phone] Tn rika [place] [address] [facility] OFFICE [facility] 2021-07-21 2021-07-21 [facility] [id number] Univers 10:00:00 10:42:55 [facility] 2021-07-21 2021-07-21 Outpatient R ORESTES [facility] [id number] Univers 10:00:00 10:42:55 [facility] 2021-07-21 2021-07-21 Office [facility] 1.2.840.114 [id number] Univers 10:00:00 10:42:55 Visit Count includes the [facility] 350.1.13.10 it y of [place] 4.2.7.2.686 Ge as ISSAC?BLEA [phone] Tn rika MOORE [address] [facility] OFFICE [facility] 2021-07-21 2021-07-21 Telephone [facility] 1.2.044.318 [id number] Univers 00:00:00 00:00:00 Alvaro [place] 350.1.13.10 i ty of [facility] 4.2.7.2.[place] [facility] [phone] Tn rika QUIÑONES 220 [facility] 2021-07-20 2021-07-20 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, Ang - Db [facility] 1.2.840.1 14 [id number] Univers 07:45:00 08:00:00 Visit Alvaro Carlisle [facility] 350.1.13.10 ity of [place] 4.2.7.2.686 Ge as ISSAC?BLEA [phone] Tn rika MOORE [address] [facility] OFFICE [facility] 2021-07-20 2021-07-20 Outpatient R ORESTES [facility] [id number] Univers 07:45:00 07:45:00 [facility] 2021-07-20 2021-07-20 Telephone [facility] 1.2.840.114 [id number] Univers 00:00:00 00:00:00 Wondiful A HEALTH 350.1.13.10 ity of [place] 4.2.7.2.686 Ge as ISSAC?BLEA [phone] [facility] [address] [facility] OFFICE [facility] 2021-07-16 2021-07-16 Emergency X SINGER [facility] ERT [id number] Univers 09:01:00 11:30:00 JEFF jeaninebeatrice [facility] 2021-07-16 2021-07-16 Emergency [facility] 1.2.215.246 [id number] Univers 09:01:00 11:30:00 Jeff [facility] 350.1.13.10 i ty of [facility] 4.2.7.2.[place] [phone] [facility] 0[address] [place] 2021-07-10 2021-07-10 Office Ha [facility] 1.2.840.114 [id number] Univers 11:30:00 12:00:00 Visit Santhosh HEALTH 350.1.13.10 it y of [place] 4.2.7.2.686 Ge as ISSAC?BLEA [phone] Tn dicyanet MOORE [address] [place] MEDICAL OFFICE [facility] 2021-07-10 2021-07-10 Outpatient R HA [facility] [id number] Univers 11:30:00 11:30:00 SANTHOSH crystal [facility] 2021-07-09 2021-07-09 Refill [facility] 1.2.840.114 [id number] Univers 00:00:00 00:00:00 Wentong [place] 350.1.13.10 i ty of [place] 4.2.7.2.686 [place] PROFESS[place] [phone] Tn rika [address] 2021-07-06 2021-07-06 Telephone [facility] 1.2.840.114 [id number] Univers 00:00:00 00:00:00 Wondiful A HEALTH 350.1.13.10 ity of [facility] 4.2.7.2.686 Ge as ISSAC?BLEA [phone] [address] OFFICE [facility] 2021-07-06 2021-07-06 Telephone [facility] 1.2.196.716 [id number] Univers 00:00:00 00:00:00 Wentong HEALTH 350.1.13.10 it y of [facility] 4.2.7.2.686 Ge as ISSAC?BLEA [phone] [address] OFFICE [facility] 2021-06-22 2021-06-22 Outpatient R CAROLINA [facility] [id number] Univers 10:00:00 10:00:00 jeaninebeatrice [facility] 2021-06-22 2021-06-22 Imm/Inj Vaccine, Ang Db Cbc Fam [facility] 1. 2.840.114 [id number] Univers 09:39:11 09:49:11 Visit Anthony Barrientos [place] 350.1.13.10 ity of [place] 4.2.7.2.686 Ge as ISSAC?BLEA [phone] [facility] [address] OFFICE [facility] 2021-06-19 2021-06-19 Office [facility] 1.2.840.114 [id number] Univers 11:30:00 12:16:33 Visit Wondiful A HEALTH 350.1.13.10 ity of [facility] 4.2.7.2.686 Ge as ISSAC?BLEA [phone] Tn rika MOORE 0[address] [place] MEDICAL OFFICE [facility] 2021-06-19 2021-06-19 Outpatient R GERMAIN [facility] [id number] Univers 11:30:00 12:16:33 WONDIFUL ity o f [facility] 2021-06-19 2021-06-19 Outpatient R GERMAIN [facility] [id number] Univers 11:30:00 11:30:00 WONDIFUL ity o f [facility] 2021-06-19 2021-06-19 Outpatient R GERMAIN [facility] [id number] Univers 11:30:00 11:30:00 WONDIFUL ity o f [facility] 2021-06-12 2021-06-12 Telephone [facility] 1.2.840.114 [id number] [facility] 00:00:00 00:00:00 Wondiful A HEALTH 350.1.13.10 ity of [place] 4.2.7.2.686 Ge as ISSAC?BLEA [phone] Tn rika MOORE [address] [facility] OFFICE [facility] 2021-06-11 2021-06-11 Telephone [facility] 1.2.840.114 [id number] [facility] 00:00:00 00:00:00 Wondiful A HEALTH 350.1.13.10 ity of [place] 4.2.7.2.686 Ge as ISSAC?BLEA [phone] Tn rika MOORE [address] [facility] OFFICE [facility] 2021-06-10 2021-06-10 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, Ang - [facility] 1.2.840.1 14 [id number] Univers 12:48:31 13:17:30 Visit Abdirahman Grovesebful A HEALTH 350.1.13.1 0 ity of [place] 4.2.7.2.686 Ge as ISSAC?BLEA [phone] Tn rika MOORE 353 [place] MEDICAL OFFICE [facility] 2021-06-10 2021-06-10 Outpatient R GERMAIN [facility] [id number] Univers 12:45:00 12:45:00 WONDIFUL ity o f [facility] 2021-06-10 2021-06-10 Outpatient R GERMAIN [facility] [id number] Univers 12:45:00 12:45:00 WONDIFUL ity o f [facility] 2021-05-29 2021-05-29 Telephone [facility] 1.2.840.114 [id number] Univers 00:00:00 00:00:00 Wondiful A HEALTH 350.1.13.10 ity of [place] 4.2.7.2.686 Ge as ISSAC?BLEA [phone] [address] OFFICE [facility] 2021-05-26 2021-05-26 Telephone [facility] 1.2.840.114 [id number] Univers 00:00:00 00:00:00 Wondiful A HEALTH 350.1.13.10 ity of [place] 4.2.7.2.686 Ge as ISSAC?BLEA [phone] [address] 2021-05-21 2021-05-21 Orders Doctor JAMAL 1.2.840.114 [id number] Univers 00:00:00 00:00:00 Only Unassigned, FLAVIA 350.1.13.10 ity of [place] [facility] 4.2.7.2.686 Ge as [phone] [address] 2021-05-20 2021-05-20 Outpatient R TAHIR [facility] [id number] Univers 00:00:00 00:00:00 REBEL ity o f [facility] 2021-05-20 2021-05-20 Telephone Cecelialuca [facility] 1.2.840.114 [id number] Univers 00:00:00 00:00:00 [place] HEALTH 350.1.13.10 it y of [place] 4.2.7.2.686 Ge as ISSAC?BLEA [phone] [address] OFFICE [facility] 2021-05-18 2021-05-18 Office [facility] 1.2.840.114 [id number] Univers 15:53:33 16:23:33 Visit Wondiful A HEALTH 350.1.13.10 ity of [place] 4.2.7.2.686 Ge as ISSAC?BLEA [phone] [address] MEDICAL OFFICE [facility] 2021-05-18 2021-05-18 [facility] [id number] Univers 16:15:00 16:15:00 WONDIFUL ity o f [facility] 2021-05-04 2021-05-04 Outpatient R [facility] [id number] Univers 09:40:00 09:40:00 ity of [facility] 2021-05-04 2021-05-04 Urgent Helga Huber [facility] 1.2.840.114 [id number] Univers 09:03:33 09:23:33 Care Leroy [facility] 350.1.13.10 ity of [place] 4.2.7.2.686 Ge as Issac?Blea [phone] [address] Office [facility] 2021-04-30 2021-04-30 Telephone [facility] 1.2.840.114 [id number] Univers 00:00:00 00:00:00 Wondiful A Health 350.1.13.10 ity of [place] 4.2.7.2.686 Ge as Issac?Blea [phone] [address] Office [facility] 2021-04-29 2021-04-29 Orders Doctor JAMAL 1.2.840.114 [id number] Univers 00:00:00 00:00:00 Only Unassigned, FLAVIA 350.1.13.10 ity of [place] [facility] 4.2.7.2.686 Ge as [phone] [address] 2021-04-24 2021-04-24 Telephone [facility] 1.2.840.114 [id number] Univers 00:00:00 00:00:00 Wondiful A Health 350.1.13.10 ity of [place] 4.2.7.2.686 Ge as Issac?Blea [phone] [address] Medical Office [facility] 2021-04-20 2021-04-20 Refill [facility] 1.2.840.114 [id number] Univers 00:00:00 00:00:00 Wondiful A Health 350.1.13.10 ity of [place] 4.2.7.2.686 Ge as Issac?Blea [phone] [facility] [address] [place] [facility] 2021-04-17 2021-04-17 Telephone Germain [facility] 1.2.840.114 [id number] Univers 00:00:00 00:00:00 Wondiful A Health 350.1.13.10 ity of [place] 4.2.7.2.686 Ge as Issac?Blea [phone] [facility] deirdre[address] Office [facility] 2021-04-09 2021-04-09 Office [facility] 1.2.840.114 [id number] Univers 14:40:23 15:40:14 Visit Wondiful A Health 350.1.13.10 ity of [place] 4.2.7.2.686 Ge as Issac?Blea [phone] [address] Office [facility] 2021-04-09 2021-04-09 Outpatient R GERMAIN [facility] [id number] Univers 15:15:00 15:15:00 WONDIFUL ity o f [facility] 2021-04-06 2021-04-06 Orders Doctor JAMAL 1.2.840.114 [id number] Univers 00:00:00 00:00:00 Only Unassigned, FLAVIA 350.1.13.10 ity of [place] [facility] 4.2.7.2.686 Ge as [id number] [address] 2021-03-27 2021-03-27 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, Ang - Db [facility] 1.2.840.1 14 [id number] Univers 13:45:09 14:00:09 Visit [facility] 350.1.13.1 0 ity of [place] 4.2.7.2.686 Ge as Issac?Blea [phone] Tn rika moore 353 [facility] Office [facility] 2021-03-27 2021-03-27 Office Germain [facility] 1.2.840.114 [id number] Univers 12:51:18 13:45:13 Visit Wondiful A [employer] 350.1.13.10 ity of [place] 4.2.7.2.686 Ge as Issac?Blea [phone] Tn rika moore [address] [place] [address] Medical Office Building 2021-03-27 2021-03-27 Outpatient R GERMAIN [facility] [id number] Univers 13:15:00 13:15:00 WONDIFUL ity o f [facility] 2021-02-26 2021-02-26 Outpatient R GERMAIN [facility] [id number] Univers 10:00:00 10:00:00 WONDIFUL ity o f [facility] 2021-02-12 2021-02-12 Orders Doctor JAMAL 1.2.840.114 [id number] Univers 00:00:00 00:00:00 Only Unassigned, FLAVIA 350.1.13.10 ity of [place] [facility] 4.2.7.2.686 Ge as [phone] [address] 2021-01-26 2021-01-26 Outpatient R RADIOLOGY [facility] [id number] Univers 00:00:00 00:00:00 ity [facility] 2021-01-14 2021-01-14 Outpatient R ORESTES [facility] [id number] Univers 08:15:00 08:15:00 ALVARO [facility] 2021-01-13 2021-01-13 Outpatient R ORESTES [facility] [id number] Univers 09:00:00 09:00:00 ALVARO [facility] 2021-01-12 2021-01-12 Outpatient R SHANNON [facility] [id number] Univers 10:15:00 10:15:00 CHINO [facility] 2020-11-14 2020-11-14 Emergency X LEIGHANN, [facility] ERT [id number] Univers 08:19:00 11:36:00 LAUREN [facility] 2020-10-22 2020-10-22 Outpatient R CUCO [facility] [id number] Univers 16:00:00 16:00:00 MAURICE [facility] 2020-09-18 2020-09-18 [facility] [id number] Univers 10:15:00 10:15:00 [facility] 2020-09-13 2020-09-13 Outpatient [facility] [id number] Univers 09:30:00 09:30:00 [facility] 2020-09-11 2020-09-11 Outpatient Odilia [facility] [id number] Univers 09:40:00 09:40:00 [facility] 2020-09-04 2020-09-04 Outpatient Odilia [facility] [id number] Univers 10:00:00 10:00:00 [facility] 2020-08-20 2020-08-20 Outpatient Raju_P [facility] [id number] [place] 10:38:00 10:38:00 [facility] 2020-08-16 2020-08-16 Outpatient [facility] [id number] Univers 09:40:00 09:40:00 [facility] 2020-08-13 2020-08-13 Outpatient Odilia CARLISLE [facility] [id number] Univers 08:00:00 08:00:00 [facility] 2020-08-12 2020-08-12 Outpatient Odilia CARLISLE [facility] [id number] Univers 10:00:00 10:00:00 [facility] 2020-08-12 2020-08-12 Outpatient Odilia [facility] [id number] Univers 08:00:00 08:00:00 [facility] 2020-08-05 2020-08-05 Outpatient Odilia [facility] [id number] Univers 00:00:00 00:00:00 [facility] 2020-08-04 2020-08-04 Outpatient Odilia [facility] [id number] Univers 14:45:00 14:45:00 [facility] 2020-07-21 2020-07-21 Outpatient Odilia [facility] [id number] Univers 14:00:00 14:00:00 [facility] 2020-07-14 2020-07-14 Outpatient R CUCO [facility] [id number] Univers 15:45:00 15:45:00 MAURICE rojas [facility] 2020-07-02 2020-07-02 Outpatient R CUCO [facility] [id number] Univers 11:45:00 11:45:00 MAURICE rojas [facility] 2020-06-26 2020-06-26 [facility] [id number] Univers 10:15:00 10:15:00 MAURICE rojas [facility] 2020-06-17 2020-06-17 Outpatient R CARLISLE [facility] [id number] Univers 08:30:00 08:30:00 ALVARO rojas [facility] 2020-05-02 2020-05-02 Outpatient EL [facility] [id number] [facility] 00:00:00 00:00:00 2020-04-24 2020-04-24 [facility] 1.2.840.114 [id number] 00:00:00 00:00:00 Alvaro Gal[place] 350.1.13.10 [place] 4.2.7.2.686 [facility] [phone] [address] 2020-04-03 2020-04-03 [facility] 1.2.840.114 [id number] 10:03:35 23:59:00 Encounter Maurice Galicia 350.1.13.10 [place] 4.2.7.2.686 [place] [id number] 2020-04-03 2020-04-03 [facility] [id number] Univers 00:00:00 00:00:00 MAURICE rojas [facility] 2020-04-03 2020-04-03 Orders Doctor JAMAL 1..840.114 [id number] 00:00:00 00:00:00 Only Unassigned, FLAVIA 350.1.13.10 [place] [facility] 4.2.7.2.686 [id number] [id number] 2020-02-27 2020-02-28 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 Maribeth Chang [facility] 1.2.840.114 [id number] 12:08:39 11:28:44 Visit Lab Main [place] 350.1.13.10 [place] 4.2.7.2.686 [place] [phone] [facility] 353 [facility] 2020-02-27 2020-02-27 Outpatient R CRUZITO COUGHLIN [facility] [id number] Univers 11:45:00 11:45:00 ity [facility] 2020-02-27 2020-02-27 Orders Doctor JAMAL 1.2.840.114 [id number] 00:00:00 00:00:00 Only Unassigned, FLAVIA 350.1.13.10 [place] [facility] 4.2.7.2.686 [id number] 009 2020-02-11 2020-02-11 [facility] [id number] Univers 15:17:32 23:59:00 [facility] 2020-02-07 2020-02-07 Outpatient R RADIOLOGY [facility] [id number] Univers 00:00:00 00:00:00 [facility] 2020-02-06 2020-02-06 Outpatient R [facility] [id number] Univers 09:15:00 09:15:00 [facility] 2020-02-05 2020-02-05 [facility] [id number] Univers 10:30:00 10:30:00 ALVARO [facility] 2020-01-24 2020-01-24 Outpatient R [facility] [id number] Univers 00:00:00 00:00:00 LILI [facility] 2020-01-10 2020-01-10 Outpatient R JOANNA [facility] [id number] Univers 10:40:00 10:40:00 TRICIA [facility] 2019-12-22 2019-12-22 [facility] [id number] Univers 08:15:00 08:15:00 REBEL rojas o f [facility] 2019-12-13 2019-12-13 [facility] [id number] Univers 15:30:00 15:30:00 MAURICE [facility] 2019-10-18 2019-10-18 Outpatient R YOAN [facility] [id number] Univers 09:15:00 09:15:00 JUNG rojas o nam [facility] 2019-10-16 2019-10-16 Outpatient R YOAN, [facility] [id number] Univers 10:00:00 10:00:00 JUNG browning [facility] 2019-10-02 2019-10-02 Outpatient R ORESTES, [facility] [id number] Univers 09:00:00 09:00:00 ALVARO [facility] 2019-09-26 2019-09-26 Outpatient R CUCO, [facility] [id number] Univers 14:15:00 14:15:00 [facility] 2019-06-14 2019-06-14 [facility] [id number] Univers 07:54:48 23:59:00 [facility] 2019-04-16 2019-04-16 Outpatient R [facility]ONIA [facility] [id number] Univers 13:45:00 14:31:43 LILI [facility] Results Test Description Test Time Test Comments [...] code = 3257) neg Negative - Negative [facility]O SPECIFIC [id number] 19:06:00 Test Item Value Reference Range Interpretation [...] code = 3257) neg Negative - Negative [facility] [id number] 09:54:00Surgical Pathology Report Case: [id number] Authorizing Provider: Joanne Carlson, Collected: 05/08/2020 12:44 PM Ordering Location: [facility] Received: 05/08/2020 04:22 PM SERVICES Pathologist: Anitha Campbell MD Specimens: A) - Duodenal, random biopsies B) - Biopsy, Gastric, random biopsies C) - Biopsy, Esophagus, random biopsies R/O raghu A. DUODENUM, RANDOM BIOPSY: - DUODENAL MUCOSA WITH PRESERVED VILLOUS ARCHITECTURE - NO SIGNIFICANT HISTOPATHOLOGICAL CHANGE B. GASTRIC, RANDOM BIOPSY: - GASTRIC BODY TYPE MUCOSA WITH PARIETAL CELL HYPERPLASIA - GASTRIC ANTRUM TYPE MUCOSA WITH REACTIVE GASTROPATHY - WARTHIN-STARRY STAIN NEGATIVE FOR H.PYLORI-LIKE ORGANISMS C. ESOPHAGUS, RANDOM BIOPSY: - ESOPHAGEAL SQUAMOUS MUCOSA WITH NO SIGNIFICANT HISTOPATHOLOGICAL CHANGE - NEGATIVE FORACUTE INFLAMMATION SJ/pl Signing Pathologist Direct Phone Line: [phone] signed byAnitha Campbell MD on 05/09/2020 at 9:54 AMEndoscopic report reviewed. 55235 x3; 39059 q5MtvjsmggeL. Received in formalin labeled with "duodenum" is a 0.8 x 0.5 x 0.2 cm aggregate of slaughter-pink tissue. Thespecimen is submitted in toto in cassette A1.B. Received in formalin labeled with "biopsy gastric" is a 0.5 x 0.5 x 0.2 cm aggregate of slaughter-pink tissue. The specimen is submitted in toto in cassette B1. C. Received in formalin labeled with "esophagus biopsy" are two fragments of slaughter-pink tissue measuring 0.2 x 0.2 x 0.2 cm each. The specimen is submitted in toto in cassette C1. WA/ewThe interpretationof this case included the use of immunohistochemistry or special stains.Control Slides Examined: In-house known positive controls were evaluated along with the test tissue. These control slides run alongside of the patients sample show appropriate staining. Internal positive and negative controls whenavailable are evaluated Immunohistochemistry technical testing was performed at [facility] Pathology Laboratory where it was developed and its performance characteristics were det ermined. It has not been cleared or approved by the U.S. Food and Drug Administration. The FDA has determined that such clearance or approval is not necessary. The test is used for clinical purposes. It should not be regarded as investigational or for research. This laboratory is certified under the Clinical Laboratory Improvement Amendments of 1988 (CLIA-88) as qualified to perform high complexity clinical laboratory testing.POCT-GLUCOSE [id number] 11:45:00 Test Item Value Reference Range Interpretation Comments POC-GLUCOSE METER 111 mg/dL 70-110 H : TESTED A T YunzhishengC 7200 (Quantuvis) (test code CAMBRIDG E BLDG A, = 1538) [facility] 7703 0: Echo Vascular Tech/Techni kris ID = [id number] for Tricia Orellana
[2023-01-16] MEDS ORDERED: ONDANSETRON 4 MG/2 ML VIAL ONE (09:07)
[2023-01-16 09:16] LABS: Absolute Lymphocytes (CBC) 1.4 K/uL (0.7-4.9); Hematocrit 36.5 % (36.0-45.0); Lymphocytes % 19.3 % (15.3-44.8); MCV 95.7 fL (80-100); MPV 7.6 fL (7.6-11.3); RBC Red Blood Cell Count 3.82 M/uL (3.86-4.86)
[2023-01-16 09:18] LABS: Protime INR 0.96
[2023-01-16 09:32] LABS: Albumin 3.7 g/dL (3.4-5.0); Bilirubin Direct 0.2 mg/dL (0-0.2); Bilirubin Indirect, Calculated 1.3 mg/dL (0.2-0.8); Bilirubin Total 1.5 mg/dL (0.2-1.0); Magnesium 1.8 mg/dL (1.6-2.4); Potassium 3.4 mEq/L (3.5-5.1); Protein, Total 7.4 g/dL (6.4-8.2); Troponin High Sensitivity 5.3 pg/mL (<58.9)
[2023-01-16] MEDS ORDERED: NA CHLORIDE 0.9% 1,000 ML ONE (09:57)
[2023-01-16] MEDS ORDERED: cloNIDine HCL 0.1 MG TAB ONE (09:57)
--- NOTE | 2023-01-16 10:39 | RAD REPORT ---
EXAM DESCRIPTION: [facility]16[facility]2023 9:42 am CLINICAL HISTORY: CHEST PAIN COMPARISON: Chest Single View dated 11/03/2022; CHEST SINGLE VIEW dated 07/06/2015 TECHNIQUE: Portable AP view of the chest. FINDINGS: The lungs are clear. No pneumothorax or effusion. The cardiomediastinal contours are unre markable. IMPRESSION: No acute cardiopulmonary process.
--- NOTE | 2023-01-16 10:55 | EDPHYS ---
Physician Documentation [facility] Name: Joyce Hallman Age: 72 yrs Sex: Female : 1950 Arrival Date: 01/16/2023 Time: 08:42 Bed 7 Private MD: ED Physician Christophe Vega HPI: 01/16 08:56 This 72 yrs old Female presents to ER via Unassigned with complaints of sb4 Dizziness, Nausea, High Blood Pressure. 09:04 72-year-old female with hypertension, diabetes, hyper lipidemia, hypothyroidism sb4 presents with complaints of high blood pressure associated with dizziness and nausea. She states that she woke up this morning took her blood pressure and saw it was 154/79. She took her statin and diabetes medication but did not take her clonidine. She denies chest pain, shortness of breath. Historical: - Allergies: 08:56 Codeine; hb 08:56 PENICILLINS; hb - PMHx: 08:56 Diabetes - NIDDM; High Cholesterol; Hypertension; Hypothyroidism; hb - Immunization history:: Adult Immunizations up to date. - Social history:: Smoking status: Patient denies any tobacco usage or history of. ROS: 09:04 Constitutional: Negative for fever, chills, and weight loss, Eyes: Negative for injury, sb4 pain, redness, and discharge, ENT: Negative for injury, pain, and discharge, Respiratory: Negative for shortness of breath, cough, wheezing, and pleuritic chest pain, Back: Negative for injury and pain, MS/Extremity: Negative for injury and deformity, Skin: Negative for injury, rash, and discoloration. 09:04 Cardiovascular: Positive for High blood pressure, Negative for chest pain, palpitations. 09:04 Neuro: Positive for dizziness, headache, Negative for altered mental status, gait disturbance, syncope, visual changes. 09:04 All other systems are negative. 09:04 Abdomen/GI: Positive for nausea, Negative for abdominal pain, vomiting, diarrhea. sb4 Exam: 09:04 Constitutional: This is a well developed, well nourished patient who is awake, alert, sb4 and in no acute distress. Head/Face: Normocephalic, atraumatic. 09:04 Eyes: Extra-ocular motions intact. Periorbital areas with no swelling, redness, or sb4 edema. Cardiovascular: Regular rate and rhythm with a normal S1 and S2. Respiratory: Lungs have equal breath sounds bilaterally, clear to auscultation and percussion. No rales, rhonchi or wheezes noted. No increased work of breathing, no retractions or nasal flaring. Abdomen/GI: Soft, non-tender, no distension. Back: No spinal tenderness. No costovertebral tenderness. Full range of motion. Skin: Warm, dry with normal turgor. Normal color with no rashes, no lesions, and no evidence of cellulitis. MS/ Extremity: Pulses equal, no cyanosis. Neurovascular intact. Full, normal range of motion. Neuro: Awake and alert, GCS 15, oriented to person, place, time, and situation. Cranial nerves II-XII grossly intact. Motor strength 5/5 in all extremities. Sensory grossly intact. Cerebellar exam normal. Normal gait. Psych: Awake, alert, with orientation to person, place and time. Behavior, mood, and affect are within normal limits. 09:28 ECG was reviewed by the Attending Physician. sb4 Vital Signs: 08:54 BP 178 / 86; Pulse 76; Resp 16; Temp 98.3; Pulse Ox 100% on R/A; Pain 0/10; hb 10:00 BP 183 / 100; Pulse 78; Resp 16; Pulse Ox 100% ; bp 10:26 BP 164 / 90; Pulse 64; Resp 18; Pulse Ox 98% on R/A; eh3 08:54 Pain Scale: Adult hb MDM: 08:45 Patient medically screened. sb4 09:04 Differential diagnosis: cardiac arrhythmia, CVA, head injury, hyperventilation, sb4 idiopathic dizziness, near-syncope, TIA, vertigo, hypertensive emergency, hypertensive urgency, acute [place], panic attack. 10:51 Data reviewed: vital signs, nurses notes, lab test result(s), EKG, radiologic studies, sb4 and as a result, I will discharge patient. Consideration of Admission/Observation Escalation of care including admission/observation considered. I considered the following discharge prescriptions or medication management in the emergency department Medications were administered in the Emergency Department. See MAR. Independent interpretation of the following test(s) in the Emergency Department EKG: See my EKG interpretation above X-Ray: My interpretation is my interpretation of the chest xray images- no acute fracture, edema, consolidation. Historians other than the Patient: Spouse/Significant Other: spouse. External Records Reviewed:. Care significantly affected by the following chronic conditions: Diabetes, Hypertension. 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 Medication response: Zofran partially relieved the patient's nausea. Special discussion: Based on the patient's history, exam, and Dx evaluation, there is no indication for emergent intervention or inpatient Tx. It is understood by the patient/guardian that if the Sx's persist or worsen they need to return immediately for re-evaluation. I have referred the patient to see his PCP for further evaluation of high blood pressure. I discussed with the patient/guardian in detail that at this point there is no indication for admission to the hospital. It is understood, however, that if the symptoms persist or worsen the patient needs to return immediately for re-evaluation. ED course: Discussed lab findings with patient. States her hyponatremia is chronic. She is asymptomatic. She has no abdominal pain to accompany the elevated bilirubin. I instructed her to follow up with her PCP and service station operator. She understands and already has appointments scheduled. I will give her a copy of her lab results to take with her.. 01/16 08:51 Order name: Basic Metabolic Panel; Complete Time: 09: sb4 01/16 08:51 Order name: CBC with Diff; Complete Time: 09:22 sb4 01/16 08:51 Order name: LFT's; Complete Time: 09:33 sb4 01/16 08:51 Order name: Magnesium; Complete Time: 09:33 sb4 01/16 08:51 Order name: NT PRO-BNP; Complete Time: 09:33 sb4 01/16 08:51 Order name: PT-INR; Complete Time: 09:22 sb4 01/16 08:51 Order name: Troponin HS; Complete Time: 09:33 sb4 01/16 09:37 Order name: Osmolality, Serum; Complete Time: 10:31 sb4 01/16 09:37 Order name: Urine Sodium Random; Complete Time: 10:46 sb4 01/16 09:37 Order name: Urine Osmolality; Complete Time: 10:32 sb4 01/16 08:51 Order name: XRAY Chest (1 view); Complete Time: 10:46 sb4 01/16 08:51 Order name: EKG; Complete Time: 08:52 sb4 01/16 08:51 Order name: Cardiac monitoring; Complete Time: 08:54 sb4 01/16 08:51 Order name: EKG - Nurse/Tech; Complete Time: 09:06 sb4 01/16 08:51 Order name: IV Saline Lock; Complete Time: 09:06 sb4 01/16 08:51 Order name: Labs collected and sent; Complete Time: 09:06 sb4 01/16 08:51 Order name: O2 Per Protocol; Complete Time: 08:54 sb4 01/16 08:51 Order name: O2 Sat Monitoring; Complete Time: 08:54 sb4 EC:28 Rate is 88 beats/min. Rhythm is regular, Normal Sinus Rhythm. QRS [place] is Normal. DE sb4 interval is normal at 88 msec. QRS interval is normal at 66 msec. QT interval is normal at 388 msec. No Q waves. T waves are Normal. Clinical impression: Normal ECG. Interpreted by me. Reviewed by me. Administered Medications: 09:25 Drug: Ondansetron IVP 4 mg Route: IVP; Site: left antecubital; bp 09:56 Follow up: Response: No adverse reaction bp 09:55 Drug: cloNIDine PO 0.1 mg Route: PO; bp 11:45 Follow up: Response: Blood pressure is lowered eh3 09:56 Drug: NS 0.9% IV 1000 ml Route: IV; Rate: 75 ml/hr; Site: left antecubital; bp 11:45 Follow up: IV Status: Completed infusion; IV Intake: 150ml eh3 Disposition Summary: 01/16/23 10:54 Discharge Ordered Location: Home sb4 Problem: an acute exacerbation sb4 Symptoms: have improved sb4 Condition: Stable sb4 Diagnosis - Essential (primary) hypertension sb4 - Hypo-osmolality and hyponatremia sb4 Followup: sb4 - With: - When: 2 - 3 days - Reason: Recheck today's complaints, Continuance of care, Re-evaluation by your physician Discharge Instructions: - Discharge Summary Sheet sb4 - Hypertension, Adult, [id number] sb4 - Hyponatremia, [id number] sb4 Forms: - Medication Reconciliation Form sb4 - Thank You Letter sb4 - Antibiotic Education sb4 - Prescription Opioid Use sb4 - [email or web address] sb4 Prescriptions: - Zofran 4 mg Oral Tablet - take 1 tablet by ORAL route every 12 hours As needed; 20 tablet; Refills: 0, sb4 Product Selection Permitted Signatures: Dispatcher [employer] EDSojna Brock, RN RN Stef Gregory, RN RN Nunu Calhoun, PA-C PA-C sb4 Laly Bhatia RN eh3
--- NOTE | 2023-01-16 10:55 | ER ---
Nurse's Notes [facility] Name: Joyce Hallman Age: 72 yrs Sex: Female : 1950 Arrival Date: 01/16/2023 Time: 08:42 Bed 7 Private MD: Diagnosis: Essential (primary) hypertension;Hypo-osmolality and hyponatremia Presentation: 01/16 08:54 Chief complaint: Patient states: "My high blood pressure makes me nauseous. I took all hb my normal meds but not my blood pressure medication this morning.". Coronavirus screen: At this time, the client does not indicate any symptoms associated with coronavirus-19. Ebola Screen: No symptoms or risks identified at this time. Initial Sepsis Screen: Does the patient meet any 2 criteria? No. Patient's initial sepsis screen is negative. Does the patient have a suspected source of infection? No. Patient's initial sepsis screen is negative. Risk Assessment: Do you want to hurt yourself or someone else? Patient reports no desire to harm self or others. Onset of symptoms was January 16, 2023. 08:54 Method Of Arrival: Ambulatory hb 08:54 Acuity: FELICIANO 3 hb Triage Assessment: 09:00 General: Appears in no apparent distress. Behavior is cooperative, appropriate for age, bp anxious. Pain: Denies pain. EENT: No deficits noted. Neuro: Reports dizziness. Cardiovascular: No deficits noted. Respiratory: No deficits noted. GI: Reports nausea. : No signs and/or symptoms were reported regarding the genitourinary system. Derm: No signs and/or symptoms reported regarding the dermatologic system. Musculoskeletal: No deficits noted. Historical: - Allergies: 08:56 Codeine; hb 08:56 PENICILLINS; hb - PMHx: 08:56 Diabetes - NIDDM; High Cholesterol; Hypertension; Hypothyroidism; hb - Immunization history:: Adult Immunizations up to date. - Social history:: Smoking status: Patient denies any tobacco usage or history of. Screenin:59 Abuse screen: Denies threats or abuse. Nutritional screening: No deficits noted. ap3 Tuberculosis screening: No symptoms or risk factors identified. 10:00 [facility] ED Fall Risk Assessment (Adult) History of falling in the last 3 months, bp including since admission No falls in past 3 months (0 pts). Assessment: 09:00 General: SEE TRIAGE NOTE. bp 10:00 Reassessment: Patient appears in no apparent distress at this time. Patient is alert, bp oriented x 3, equal unlabored respirations, skin warm/dry/pink. 10:00 GI: Abdomen is round non-distended. eh3 Vital Signs: 08:54 BP 178 / 86; Pulse 76; Resp 16; Temp 98.3; Pulse Ox 100% on R/A; Pain 0/10; hb 10:00 BP 183 / 100; Pulse 78; Resp 16; Pulse Ox 100% ; bp 10:26 BP 164 / 90; Pulse 64; Resp 18; Pulse Ox 98% on R/A; eh3 08:54 Pain Scale: Adult hb ED Course: 08:43 Patient arrived in ED. im 08:44 Nunu Morales PA-C is PHCP. sb4 08:44 Christophe Vega MD is Attending Physician. sb4 08:46 Stef Real, RN is Primary Nurse. bp 08:56 Triage completed. hb 08:57 Arm band placed on. hb 08:59 Patient has correct armband on for positive identification. Placed in gown. Bed in low ap3 position. Call light in reach. Side rails up X2. desk monitor on. Pulse ox on. NIBP on. 09:06 Basic Metabolic Panel Sent. mm9 09:06 CBC with Diff Sent. mm9 09:06 LFT's Sent. mm9 09:06 Magnesium Sent. mm9 09:06 NT PRO-BNP Sent. mm9 09:06 PT-INR Sent. mm9 09:06 Troponin HS Sent. mm9 09:06 Inserted saline lock: 20 gauge in left forearm, using aseptic technique. bp 09:27 Initial lab(s) drawn, by ia, sent to lab. EKG done, by ED staff, reviewed by Christophe Vega MD. Inserted saline lock: 20 gauge antecubital area, using aseptic technique. 09:28 Warm blanket given. Pillow given. Client placed on continuous cardiac and pulse mm9 oximetry monitoring. NIBP monitoring applied. 09:44 XRAY Chest (1 view) In Process Unspecified. EDMS 10:20 Assisted to bathroom. eh3 10:54 Katty Moreau MD is Referral Physician. sb4 11:45 No provider procedures requiring assistance completed. IV discontinued, intact, eh3 bleeding controlled, No redness/swelling at site. Pressure dressing applied. Administered Medications: 09:25 Drug: Ondansetron IVP 4 mg Route: IVP; Site: left antecubital; bp 09:56 Follow up: Response: No adverse reaction bp 09:55 Drug: cloNIDine PO 0.1 mg Route: PO; bp 11:45 Follow up: Response: Blood pressure is lowered eh3 09:56 Drug: NS 0.9% IV 1000 ml Route: IV; Rate: 75 ml/hr; Site: left antecubital; bp 11:45 Follow up: IV Status: Completed infusion; IV Intake: 150ml eh3 Medication: 10:00 VIS not applicable for this client. bp Intake: 11:45 IV: 150ml; Total: 150ml. eh3 Outcome: 10:54 Discharge ordered by MD. sb4 11:45 Discharged to home via wheelchair, with family. eh3 11:45 Condition: stable 11:45 Discharge instructions given to patient, Instructed on discharge instructions, follow up and referral plans. medication usage, Demonstrated understanding of instructions, follow-up care, medications, Prescriptions given X 1. 11:46 Patient left the ED. eh3 Signatures: Dispatcher [employer] EDMS Sonja Lutz RN RN hb Peltier, Brian RN RN Helga Mason RN RN ap3 Laly Bhatia RN RN eh3 Nunu Morales, PA-C PA-C Marisabel Barnes mm9 Elizabeth Barroso Corrections: (The following items were deleted from the chart) 08:57 08:54 BP 178 / 86; Pulse 55bpm; Resp 16bpm; Pulse Ox 100% RA; Temp 98.3F; Pain 0/10, hb Adult; hb
[2023-01-16 12:00] VITALS: TEMP 98.3
[2023-01-16 12:03] VITALS: BP 164/90; O2SAT 98
--- NOTE | 2023-01-17 17:13 | EKG ---
Test Date: 2023-01-16 Test Time: 09:03:11 Calibration Checker: DANNY MEASUREMENT RESULTS: Intervals: Rate: 88 MN: 154 QRSD: 66 QT: 388 QTc: 469 [place]: P: 69 MN: 154 QRS: 41 T: 61 INTERPRETIVE STATEMENTS: Normal sinus rhythm Normal ECG Compared to ECG 11/03/2022 15:18:22 No significant changes Electronically Signed On 01-17-23 17:11:11 CDT by Geovani Kumari
== END 2023-01-16 11:46 | disposition home or self-care (01) ==
LOC: ER 08:42
DX: I10 Essential (primary) hypertension (principal); E87.1 Hypo-osmolality and hyponatremia; E11.9 Type 2 diabetes mellitus without complications; E03.9 Hypothyroidism, unspecified; Z88.0 Allergy status to penicillin; Z88.5 Allergy status to narcotic agent
CPT/HCPCS: 96361; 93005; 85025; 80048; 36415; 83735; 85610; 84300; 80076; 84484; 83880; 83930; 83935; 71045; 96374; 99285; J2405; J7030